=== PATIENT | female | born 1935 | race Caucasian/White ===

== ENCOUNTER → 2017-04-12 04:00 | Outpatient (REF) | payer MEDICARE, OTHER, SELFPAY ==
[2017-04-12 06:53] LABS: Hematocrit 33.4 % (37-47); Hemoglobin 10.5 g/dl (12.0-15.0); Mean Corp Hgb Conc 31.4 g/gl (32-36); Mean Corpuscular Hgb 31.2 pg (27.0-32.0); Mean Corpuscular Volume 99.1 fL (81-99); Mean Platelet Vol. 9.6 fl (6.2-12.0); Platelet Count 282 K/mm3 (150-450); RBC Distribution Width CV 15.9 % (11.6-14.6); RBC Distribution Width SD 57.1 fl (35.1-43.9); Red Blood Count 3.37 M/mm3 (4.2-5.4); White Blood Count 7.1 K/mm3 (4.4-11.0)
[2017-04-12 06:55] LABS: International Normalized Ratio 1.6; Prothrombin Time (Protime)PT. 18.3 SECONDS (11.7-14.9)
[2017-04-12 07:10] LABS: Scan Indicated on CBC? Y/N NO
[2017-04-12 07:13] LABS: AST(SGOT) 26 U/L (15-37); Alanine Aminotransfer ALT/SGPT 18 U/L (13-56); Albumin, Serum 2.9 g/dL (3.2-5.0); Alkaline Phosphatase 138 U/L (45-117); Anion Gap 8 (5-15); BUN 34 mg/dL (7-18); BUN/Creat Ratio 43.8 RATIO (10-20); Bilirubin, Direct 0.15 mg/dL (0.00-0.30); Chloride 105 mmol/L (98-107); Creatinine, Serum 0.78 mg/dL (0.55-1.02); EST Glomerular Filtration Rate 76 mL/min (>60); Est Glom Filt Rate - Afr Amer 91 mL/min (>60); Globulin 2.9 g/dL (2.2-4.2); Glucose 90 mg/dL (74-106); Potassium 4.5 mmol/L (3.5-5.1); Protein, Total 5.8 g/dL (6.4-8.2); Sodium Level 142 mmol/L (136-145)
[2017-04-12 07:51] LABS: Hemoglobin A1c 5.9 % (4.2-6.3)
== END ==
LOC: OLS.WHLBEN 04:00
PROVIDERS: Visit Provider Family Medicine
DX: I48.91 Unspecified atrial fibrillation (principal); Z79.01 Long term (current) use of anticoagulants; E03.9 Hypothyroidism, unspecified; R73.09 Other abnormal glucose
CPT/HCPCS: 36415; 80048; 80076; 83036; 84443; 85027; 85610

== ENCOUNTER → 2017-04-26 04:00 | Outpatient (REF) | payer MEDICARE, OTHER, SELFPAY ==
[2017-04-26 08:19] LABS: International Normalized Ratio 1.4; Prothrombin Time (Protime)PT. 16.7 SECONDS (11.7-14.9)
== END ==
LOC: OLS.WHLBEN 04:00
PROVIDERS: Visit Provider Family Medicine
DX: I48.91 Unspecified atrial fibrillation (principal); Z79.01 Long term (current) use of anticoagulants
CPT/HCPCS: 36415; 85610

== ENCOUNTER → 2017-05-03 05:00 | Outpatient (REF) | payer MEDICARE, OTHER, SELFPAY ==
[2017-05-03 08:11] LABS: International Normalized Ratio 1.6; Prothrombin Time (Protime)PT. 19.5 SECONDS (11.7-14.9)
== END ==
LOC: OLS.WHLBEN 05:00
PROVIDERS: Visit Provider Family Medicine
DX: I48.91 Unspecified atrial fibrillation (principal); Z79.01 Long term (current) use of anticoagulants
CPT/HCPCS: 36415; 85610

== ENCOUNTER → 2017-05-10 05:00 | Outpatient (REF) | payer MEDICARE, OTHER, SELFPAY ==
[2017-05-10 07:29] LABS: Hematocrit 34.7 % (37-47); Hemoglobin 11.1 g/dl (12.0-15.0); Mean Corpuscular Hgb 31.5 pg (27.0-32.0); Mean Corpuscular Volume 98.6 fL (81-99); Mean Platelet Vol. 10.3 fl (6.2-12.0); Platelet Count 219 K/mm3 (150-450); RBC Distribution Width CV 14.4 % (11.6-14.6); RBC Distribution Width SD 50.2 fl (35.1-43.9); Red Blood Count 3.52 M/mm3 (4.2-5.4); White Blood Count 4.4 K/mm3 (4.4-11.0)
[2017-05-10 07:30] LABS: Scan Indicated on CBC? Y/N NO
[2017-05-10 07:40] LABS: Anion Gap 8 (5-15); BUN 29 mg/dL (7-18); BUN/Creat Ratio 37.3 RATIO (10-20); Chloride 110 mmol/L (98-107); Creatinine, Serum 0.78 mg/dL (0.55-1.02); EST Glomerular Filtration Rate 75 mL/min (>60); Est Glom Filt Rate - Afr Amer 91 mL/min (>60); Glucose 90 mg/dL (74-106); Sodium Level 145 mmol/L (136-145)
[2017-05-10 08:02] LABS: International Normalized Ratio 2.3
== END ==
LOC: OLS.WHLBEN 05:00
PROVIDERS: Visit Provider Family Medicine
DX: I11.0 Hypertensive heart disease with heart failure (principal); I50.9 Heart failure, unspecified
CPT/HCPCS: 36415; 80048; 85027; 85610

== ENCOUNTER → 2017-06-07 05:00 | Outpatient (REF) | payer MEDICARE, OTHER, SELFPAY ==
[2017-06-07 06:11] LABS: Hematocrit 32.9 % (37-47); Hemoglobin 10.5 g/dl (12.0-15.0); Mean Corp Hgb Conc 31.9 g/gl (32-36); Mean Corpuscular Hgb 31.1 pg (27.0-32.0); Mean Corpuscular Volume 97.3 fL (81-99); Mean Platelet Vol. 10.1 fl (6.2-12.0); Platelet Count 169 K/mm3 (150-450); RBC Distribution Width CV 14.7 % (11.6-14.6); RBC Distribution Width SD 52.1 fl (35.1-43.9); Red Blood Count 3.38 M/mm3 (4.2-5.4); White Blood Count 3.5 K/mm3 (4.4-11.0)
[2017-06-07 06:13] LABS: Scan Indicated on CBC? Y/N NO
[2017-06-07 06:18] LABS: International Normalized Ratio 2.5
[2017-06-07 06:51] LABS: Anion Gap 5 (5-15); BUN 21 mg/dL (7-18); BUN/Creat Ratio 29.9 RATIO (10-20); Calcium,Total 7.7 mg/dL (8.5-10.1); Chloride 109 mmol/L (98-107); EST Glomerular Filtration Rate 85 mL/min (>60); Est Glom Filt Rate - Afr Amer 103 mL/min (>60); Glucose 84 mg/dL (74-106); Sodium Level 144 mmol/L (136-145); Thyroid Stim Hormone (TSH) 0.28 uIU/mL (0.358-3.74)
== END ==
LOC: OLS.WHLBEN 05:00
PROVIDERS: Visit Provider Family Medicine
DX: I50.9 Heart failure, unspecified (principal); I10 Essential (primary) hypertension; E03.9 Hypothyroidism, unspecified; Z79.899 Other long term (current) drug therapy
CPT/HCPCS: 36415; 80048; 84443; 85027; 85610

== ENCOUNTER → 2017-07-05 05:30 | Outpatient (REF) | payer MEDICARE, OTHER, SELFPAY ==
[2017-07-05 07:16] LABS: Hematocrit 35.2 % (37-47); Hemoglobin 11.5 g/dl (12.0-15.0); Mean Corp Hgb Conc 32.7 g/gl (32-36); Mean Corpuscular Hgb 31.5 pg (27.0-32.0); Mean Corpuscular Volume 96.4 fL (81-99); Mean Platelet Vol. 10.7 fl (6.2-12.0); Platelet Count 166 K/mm3 (150-450); RBC Distribution Width CV 15.1 % (11.6-14.6); RBC Distribution Width SD 50.5 fl (35.1-43.9); Red Blood Count 3.65 M/mm3 (4.2-5.4); White Blood Count 4.1 K/mm3 (4.4-11.0)
[2017-07-05 07:17] LABS: Scan Indicated on CBC? Y/N NO
[2017-07-05 07:23] LABS: International Normalized Ratio 2.2; Prothrombin Time (Protime)PT. 24.5 SECONDS (11.7-14.9)
[2017-07-05 07:33] LABS: Hemoglobin A1c 5.5 % (4.2-6.3)
[2017-07-05 07:34] LABS: Anion Gap 7 (5-15); BUN 28 mg/dL (7-18); BUN/Creat Ratio 30.1 RATIO (10-20); Chloride 106 mmol/L (98-107); Cholesterol 141 mg/dL (200); Creatinine, Serum 0.93 mg/dL (0.55-1.02); EST Glomerular Filtration Rate 61 mL/min (>60); Est Glom Filt Rate - Afr Amer 74 mL/min (>60); Glucose 88 mg/dL (74-106); High Density Lipoprotein 78 mg/dL; Potassium 4.2 mmol/L (3.5-5.1); Sodium Level 141 mmol/L (136-145); Thyroid Stim Hormone (TSH) 0.28 uIU/mL (0.358-3.74); Triglycerides 53 mg/dL; Very Low Density Lipoprotein 11 mg/dL (5-40)
== END ==
LOC: OLS.WHLBEN 05:30
PROVIDERS: Visit Provider Family Medicine
DX: I48.91 Unspecified atrial fibrillation (principal); E11.9 Type 2 diabetes mellitus without complications; I10 Essential (primary) hypertension; E03.9 Hypothyroidism, unspecified
CPT/HCPCS: 36415; 80048; 80061; 83036; 84443; 85027; 85610

== ENCOUNTER 2017-07-28 06:35 | Emergency (ER) | payer MEDICARE, OTHER, SELFPAY ==
--- NOTE | 2017-07-28 06:35 | DT_ITS ---
This patient was seen during an EMR downtime July 22, 2017 - July 29, 2017. This patient may have a combination of paper and electronic documentation or all paper documentation. All documentation is viewable within the e-chart portion of [email or web address] for each patient visit.
--- NOTE | 2017-07-28 07:05 | CT_ITS ---
STUDY: CT BRAIN WITHOUT CONTRAST REASON FOR EXAM: Female, 81 years old. Closed head injury after fall. RADIATION DOSAGE (If Supplied By Facility): CTDIvol = ( 44.99 ) mGy, DLP = ( 796.11 ) mGycm TECHNIQUE: Transaxial CT imaging of the brain was performed without administration of intravenous contrast material. Multiplanar reformations are submitted for interpretation. Individualized dose optimization techniques were used for this CT. COMPARISON: None. FINDINGS: There is a hematoma located lateral to left orbit consistent with recent trauma and soft tissue contusion. Normal calvarium. There is mild cerebral atrophy with widening of the extra-axial spaces and ventricular dilatation. There are areas of decreased attenuation within the white matter tracts of the supratentorial brain, consistent with microvascular disease changes. Normal basal ganglia and thalami. Normal brainstem. There is mild cerebellar atrophy. There is no intracranial hemorrhage. There is mild atherosclerotic calcification of intracranial arteries. There is mucoperiosteal thickening and possibly small amount of fluid in the right maxillary sinus. There is mild mucoperiosteal thickening within the ethmoid sinuses and left sphenoid sinus. CT/Brain/Head without Contrast IMPRESSION: 1. Chronic involutional changes of the brain. 2. Left-sided orbital soft tissue hematoma and contusion. 3. No CT evidence of acute intracranial hemorrhage. Electronically Signed: Magdalena Mcclellan MD at 7:46 EDT , Service support ,
[2017-07-30 11:54] LABS: International Normalized Ratio 2.6; Prothrombin Time (Protime)PT. 28.1 SECONDS (11.7-14.9)
== END 2017-07-28 11:11 | disposition home or self-care (01) ==
LOC: ED 19:47
PROVIDERS: Emergency Medicine; Emergency Provider Emergency Medicine; Family Provider Family Medicine; PCP Family Medicine
DX: S09.90XA Unspecified injury of head, initial encounter (principal); W18.00XA Striking against unspecified object with subsequent fall, initial encounter; Y93.89 Activity, other specified; Y92.091 Bathroom in other non-institutional residence as the place of occurrence of the external cause; Y99.9 Unspecified external cause status; I48.91 Unspecified atrial fibrillation; Z79.01 Long term (current) use of anticoagulants
CPT/HCPCS: 36415; 70450; 85610; 99283

== ENCOUNTER → 2017-08-02 05:00 | Outpatient (REF) | payer MEDICARE, OTHER, SELFPAY ==
[2017-08-02 08:17] LABS: International Normalized Ratio 2.7; Prothrombin Time (Protime)PT. 28.4 SECONDS (11.7-14.9)
[2017-08-02 08:21] LABS: Hematocrit 32.7 % (37-47); Hemoglobin 10.5 g/dl (12.0-15.0); Mean Corp Hgb Conc 32.1 g/gl (32-36); Mean Corpuscular Hgb 30.3 pg (27.0-32.0); Mean Corpuscular Volume 94.5 fL (81-99); Platelet Count 208 K/mm3 (150-450); RBC Distribution Width CV 15.4 % (11.6-14.6); RBC Distribution Width SD 52.3 fl (35.1-43.9); Red Blood Count 3.46 M/mm3 (4.2-5.4)
[2017-08-02 08:27] LABS: Scan Indicated on CBC? Y/N NO
[2017-08-02 08:29] LABS: Anion Gap 6 (5-15); BUN 22 mg/dL (7-18); BUN/Creat Ratio 30.5 RATIO (10-20); Calcium,Total 7.8 mg/dL (8.5-10.1); Chloride 109 mmol/L (98-107); Creatinine, Serum 0.72 mg/dL (0.55-1.02); EST Glomerular Filtration Rate 82 mL/min (>60); Est Glom Filt Rate - Afr Amer 99 mL/min (>60); Glucose 88 mg/dL (74-106); Potassium 3.9 mmol/L (3.5-5.1); Sodium Level 144 mmol/L (136-145)
== END ==
LOC: OLS.WHLBEN 05:00
PROVIDERS: Visit Provider Family Medicine
DX: I48.91 Unspecified atrial fibrillation (principal); I11.0 Hypertensive heart disease with heart failure; I50.9 Heart failure, unspecified
CPT/HCPCS: 36415; 80048; 85027; 85610

== ENCOUNTER → 2017-08-30 05:00 | Outpatient (REF) | payer MEDICARE, OTHER, SELFPAY ==
[2017-08-30 08:55] LABS: Hematocrit 34.4 % (37-47); Hemoglobin 11.2 g/dl (12.0-15.0); Mean Corp Hgb Conc 32.6 g/gl (32-36); Mean Corpuscular Hgb 32.1 pg (27.0-32.0); Mean Corpuscular Volume 98.6 fL (81-99); Mean Platelet Vol. 10.6 fl (6.2-12.0); Platelet Count 152 K/mm3 (150-450); RBC Distribution Width SD 55.5 fl (35.1-43.9); Red Blood Count 3.49 M/mm3 (4.2-5.4); White Blood Count 3.8 K/mm3 (4.4-11.0)
[2017-08-30 08:56] LABS: Scan Indicated on CBC? Y/N NO
[2017-08-30 08:57] LABS: International Normalized Ratio 2.6
[2017-08-30 09:04] LABS: Anion Gap 6 (5-15); BUN 26 mg/dL (7-18); Chloride 107 mmol/L (98-107); Creatinine, Serum 0.87 mg/dL (0.55-1.02); EST Glomerular Filtration Rate 67 mL/min (>60); Est Glom Filt Rate - Afr Amer 81 mL/min (>60); Glucose 97 mg/dL (74-106); Sodium Level 144 mmol/L (136-145)
== END ==
LOC: OLS.WHLBEN 05:00
PROVIDERS: Visit Provider Family Medicine
DX: I48.91 Unspecified atrial fibrillation (principal); I11.0 Hypertensive heart disease with heart failure; I50.9 Heart failure, unspecified
CPT/HCPCS: 36415; 80048; 85027; 85610

== ENCOUNTER → 2017-10-01 05:00 | Outpatient (REF) | payer MEDICARE, OTHER, SELFPAY ==
[2017-10-01 10:22] LABS: Hematocrit 37.6 % (37-47); Hemoglobin 12.2 g/dl (12.0-15.0); Mean Corp Hgb Conc 32.4 g/gl (32-36); Mean Corpuscular Hgb 32.3 pg (27.0-32.0); Mean Corpuscular Volume 99.5 fL (81-99); Mean Platelet Vol. 10.7 fl (6.2-12.0); Platelet Count 157 K/mm3 (150-450); RBC Distribution Width CV 14.9 % (11.6-14.6); RBC Distribution Width SD 52.8 fl (35.1-43.9); Red Blood Count 3.78 M/mm3 (4.2-5.4); White Blood Count 4.4 K/mm3 (4.4-11.0)
[2017-10-01 10:39] LABS: Scan Indicated on CBC? Y/N NO
[2017-10-01 11:07] LABS: Anion Gap 5 (5-15); BUN 24 mg/dL (7-18); BUN/Creat Ratio 27.6 RATIO (10-20); Calcium,Total 8.3 mg/dL (8.5-10.1); Chloride 107 mmol/L (98-107); Creatinine, Serum 0.87 mg/dL (0.55-1.02); EST Glomerular Filtration Rate 66 mL/min (>60); Est Glom Filt Rate - Afr Amer 80 mL/min (>60); Glucose 101 mg/dL (74-106); Potassium 3.9 mmol/L (3.5-5.1); Sodium Level 142 mmol/L (136-145)
== END ==
LOC: OLS.WHLBEN 05:00
PROVIDERS: Visit Provider Family Medicine
DX: I11.0 Hypertensive heart disease with heart failure (principal); I50.9 Heart failure, unspecified
CPT/HCPCS: 36415; 80048; 85027

== ENCOUNTER → 2017-10-29 04:00 | Outpatient (REF) | payer MEDICARE, OTHER, SELFPAY ==
[2017-10-29 08:48] LABS: Hemoglobin 13.5 g/dl (12.0-15.0); Mean Corp Hgb Conc 32.9 g/gl (32-36); Mean Corpuscular Hgb 32.5 pg (27.0-32.0); Mean Corpuscular Volume 98.8 fL (81-99); Mean Platelet Vol. 10.6 fl (6.2-12.0); Platelet Count 175 K/mm3 (150-450); RBC Distribution Width CV 14.4 % (11.6-14.6); RBC Distribution Width SD 51.2 fl (35.1-43.9); Red Blood Count 4.15 M/mm3 (4.2-5.4); White Blood Count 5.7 K/mm3 (4.4-11.0)
[2017-10-29 08:59] LABS: Scan Indicated on CBC? Y/N NO
[2017-10-29 09:09] LABS: Anion Gap 9 (5-15); BUN 25 mg/dL (7-18); BUN/Creat Ratio 29.2 RATIO (10-20); Calcium,Total 7.8 mg/dL (8.5-10.1); Chloride 106 mmol/L (98-107); Creatinine, Serum 0.86 mg/dL (0.55-1.02); EST Glomerular Filtration Rate 67 mL/min (>60); Est Glom Filt Rate - Afr Amer 81 mL/min (>60); Glucose 87 mg/dL (74-106); Sodium Level 145 mmol/L (136-145); Thyroid Stim Hormone (TSH) 0.14 uIU/mL (0.358-3.74)
== END ==
LOC: OLS.WHLBEN 04:00
PROVIDERS: Visit Provider Family Medicine
DX: I11.0 Hypertensive heart disease with heart failure (principal); I50.9 Heart failure, unspecified
CPT/HCPCS: 36415; 80048; 84443; 85027

== ENCOUNTER → 2017-11-19 05:00 | Outpatient (REF) | payer MEDICARE, OTHER, SELFPAY ==
[2017-11-19 09:27] LABS: Absolute Lymphocyte Count 0.74 X10^3/ul (0.83-4.51); Basophil# 0.02 X10^3/uL; Basophil% 0.5 % (0-1); Eosinophil# 0.07 X10^3/uL; Eosinophils% 1.6 % (0-5); Hemoglobin 12.8 g/dl (12.0-15.0); Lymphocyte # 0.74 X10^3/ul (4.0); Lymphocyte % 17.4 % (19-41); Mean Corp Hgb Conc 32.8 g/gl (32-36); Mean Corpuscular Hgb 32.7 pg (27.0-32.0); Mean Corpuscular Volume 99.5 fL (81-99); Mean Platelet Vol. 10.5 fl (6.2-12.0); Monocyte# 0.44 X10^3/uL; Monocyte% 10.4 % (0-10); Neutrophil # 2.97 X10^3/uL (2.7-7.7); Neutrophil % 69.9 % (47-70); POSITIVE COUNT NO; POSITIVE DIFFERENTIAL NO; POSITIVE MORPHOLOGY NO; Platelet Count 157 K/mm3 (150-450); RBC Distribution Width CV 14.3 % (11.6-14.6); RBC Distribution Width SD 51.1 fl (35.1-43.9); Red Blood Count 3.92 M/mm3 (4.2-5.4); White Blood Count 4.3 K/mm3 (4.4-11.0)
[2017-11-19 09:52] LABS: Anion Gap 6 (5-15); BUN 23 mg/dL (7-18); BUN/Creat Ratio 24.6 RATIO (10-20); Calcium,Total 7.9 mg/dL (8.5-10.1); Chloride 107 mmol/L (98-107); Creatinine, Serum 0.93 mg/dL (0.55-1.02); EST Glomerular Filtration Rate 61 mL/min (>60); Est Glom Filt Rate - Afr Amer 74 mL/min (>60); Glucose 134 mg/dL (74-106); Potassium 3.8 mmol/L (3.5-5.1); Sodium Level 144 mmol/L (136-145)
== END ==
LOC: OLS.WHLBEN 05:00
PROVIDERS: Visit Provider Family Medicine
DX: I11.0 Hypertensive heart disease with heart failure (principal); I50.9 Heart failure, unspecified; R53.83 Other fatigue
CPT/HCPCS: 36415; 80048; 85025

== ENCOUNTER → 2018-01-01 05:00 | Outpatient (REF) | payer MEDICARE, OTHER, SELFPAY ==
[2018-01-01 07:58] LABS: Hemoglobin 13.4 g/dl (12.0-15.0); Mean Corp Hgb Conc 32.7 g/gl (32-36); Mean Corpuscular Hgb 32.3 pg (27.0-32.0); Mean Corpuscular Volume 98.8 fL (81-99); Mean Platelet Vol. 11.2 fl (6.2-12.0); Platelet Count 149 K/mm3 (150-450); RBC Distribution Width SD 45.7 fl (35.1-43.9); Red Blood Count 4.15 M/mm3 (4.2-5.4); White Blood Count 5.9 K/mm3 (4.4-11.0)
[2018-01-01 08:00] LABS: Scan Indicated on CBC? Y/N NO
[2018-01-01 08:11] LABS: Anion Gap 10 (5-15); BUN 26 mg/dL (7-18); BUN/Creat Ratio 32.6 RATIO (10-20); Calcium,Total 8.1 mg/dL (8.5-10.1); Chloride 108 mmol/L (98-107); Cholesterol 140 mg/dL (200); EST Glomerular Filtration Rate 73 mL/min (>60); Est Glom Filt Rate - Afr Amer 88 mL/min (>60); Glucose 96 mg/dL (74-106); High Density Lipoprotein 70 mg/dL; Potassium 3.9 mmol/L (3.5-5.1); Sodium Level 143 mmol/L (136-145); Thyroid Stim Hormone (TSH) 0.07 uIU/mL (0.358-3.74); Triglycerides 76 mg/dL; Very Low Density Lipoprotein 15 mg/dL (5-40)
[2018-01-01 08:58] LABS: Hemoglobin A1c 5.4 % (4.2-6.3)
== END ==
LOC: OLS.WHLBEN 05:00
PROVIDERS: Visit Provider Family Medicine
DX: I10 Essential (primary) hypertension (principal)
CPT/HCPCS: 36415; 80048; 80061; 83036; 84443; 85027

== ENCOUNTER → 2018-01-29 05:00 | Outpatient (REF) | payer MEDICARE, OTHER, SELFPAY ==
[2017-12-18 09:36] VITALS: BMI 28.5
[2018-01-29 08:02] LABS: Hematocrit 39.9 % (37-47); Hemoglobin 12.8 g/dl (12.0-15.0); Mean Corp Hgb Conc 32.1 g/gl (32-36); Mean Corpuscular Hgb 31.4 pg (27.0-32.0); Mean Corpuscular Volume 97.8 fL (81-99); Mean Platelet Vol. 11.3 fl (6.2-12.0); Platelet Count 152 K/mm3 (150-450); RBC Distribution Width CV 12.7 % (11.6-14.6); Red Blood Count 4.08 M/mm3 (4.2-5.4); White Blood Count 5.2 K/mm3 (4.4-11.0)
[2018-01-29 08:05] LABS: Anion Gap 6 (5-15); BUN 29 mg/dL (7-18); BUN/Creat Ratio 32.3 RATIO (10-20); Chloride 107 mmol/L (98-107); EST Glomerular Filtration Rate 64 mL/min (>60); Est Glom Filt Rate - Afr Amer 77 mL/min (>60); Glucose 92 mg/dL (74-106); Potassium 4.1 mmol/L (3.5-5.1); Scan Indicated on CBC? Y/N NO; Sodium Level 141 mmol/L (136-145)
--- OUTSIDE RECORDS SUMMARY | 2018-03-17 01:25 | XMS RPT_ITS ---
:1935 Author Organization OHIP Support Name Relationship Address Phone Rossana Artis Unavailable [address] + [address] [place] [address] Krista Mccormick Unavailable [address] + [facility] [place] [address] R Unavailable Unavailable Unavailable Steff Rossana Unavailable [address] + [address] [place] [address] Lidya Mccormcikra Unavailable [address] + [place] [address] R Unavailable Unavailable Unavailable Steff Rossana Unavailable [address] + [address] [place] [address] Lidya Mccormickra Unavailable [address] + [place] [address] R Unavailable Unavailable Unavailable NICANOR MCCORMICK Unavailable Unavailable + Steff Rossana Unavailable [address] + [address] [place] [address] Lidya Mccormickra Unavailable [address] + [place] [address] R Unavailable Unavailable Unavailable Steff Rossana Unavailable [address] + [address] [place] [address] Lidya Mccormickra Unavailable [address] + [place] [address] R Unavailable Unavailable Unavailable Steff Rossana Unavailable [address] + [address] [place] [address] Lidya Mccormickra Unavailable [address] + [facility] [place] [address] R Unavailable Unavailable Unavailable Steff Rossana Unavailable [address] + [address] [place] [address] Jcae, Krista Unavailable [address] + [place] [address] R Unavailable Unavailable Unavailable SteffRossana Unavailable [facility] + [address] [place] [address] Jace, Krista Unavailable [address] + [place] [address] R Unavailable Unavailable Unavailable JACENICANOR BUTT Unavailable Unavailable + Steff, Rossana Unavailable [address] + [address] [place] [address] Jace, Krista Unavailable [address] + [place] [address] R Unavailable Unavailable Unavailable Steff, Rossana Unavailable [address] [place] [address] WAY + [address] [place] [address] Jace, Krista Unavailable [address] + [place] [address] R Unavailable Unavailable Unavailable Steff, Rossana Unavailable [address] [place] [address] WAY + [address] [place] [address] Jace, Krista Unavailable [address] + [place] [address] R Unavailable Unavailable Unavailable SteffRossana medina Unavailable [address] [place] [address] WAY + [address] [place] [address] Jace, Krista Unavailable [address] + [place] [address] R Unavailable Unavailable Unavailable RETIRED Unavailable u + [place], [place] RETIRED Unavailable Unavailable + Steff, Rossana Unavailable [address] [place] [address] WAY [phone] [place] [address] Isa Cabrera Unavailable [address] + [place] [address] RETIRED Unavailable Unavailable + Steff, Rossana Unavailable [facility] + [address] [place] [address] Jace, Krista Unavailable [address] + [place] [address] R Unavailable Unavailable Unavailable Rossana Artis Unavailable [address] [facility] + [address] [place] [address] Krista Mccormick Unavailable [address] + [place] [address] R Unavailable Unavailable Unavailable Rossana Artis Unavailable [address] [facility] + [address] [place] [address] Krista Mccormick Unavailable [address] + [place] [address] R Unavailable Unavailable Unavailable Isa Cabrera Unavailable [address] + [place] [address] R Unavailable Unavailable Unavailable RETIRED Unavailable u + [place], [place] Care Team Providers Name Role Phone Maurice Mcclellan Attending Unavailable Mcclellan, Maurice Attending Unavailable Mcclellan, Maurice Attending Unavailable Mcclellan, Maurice Attending Unavailable Mcclellan, Maurice Attending Unavailable Mcclellan, Maurice Attending Unavailable Emmie Cervantes Attending Unavailable Estephanie, Basil Attending Unavailable DOCTOR, OUT OF TOWN Referring Unavailable FLORENTIN NICHOLSON Primary Care Unavailable Mcclellan, Maurice Attending Unavailable Mcclellan, Maurice Attending Unavailable Ahmed, Jayashree Attending Unavailable Ahmed, Jayashree Referring Unavailable Mcclellan, Maurice Primary Care Unavailable Mcclellan, Maurice Attending Unavailable Mcclellan, Maurice Attending Unavailable Mcclellan, Maurice Attending Unavailable Mcclellan, Maurice Attending Unavailable Mcclellan, Maurice Attending Unavailable Emmie Cervantes Attending Unavailable Estephanie, Basil Attending Unavailable Mcclellan, Maurice Referring Unavailable Mcclellan, Maurice Attending Unavailable JEANETTE HDEZ Attending Unavailable Amanda Carbajal Primary Care Unavailable JEANETTE HDEZ Attending Unavailable Aamnda Carbajal Primary Care Unavailable PROBLEMS PROBLEMS DATE TYPE CONDITION / CODE ATTENDING STATUS SOURCE Unknown I50.9 - Heart failure, Maurice Mcclellan Active [place] [facility] unspecified / Community I50.9(ICD-10) Hospital Repository Unknown I10 - Essential (primary) Mauirce Mcclellan 8 hypertension / Community I10(ICD-10) Hospital Repository Final Dementia with Lewy bodies [facility]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 / G31.83(ICD-10) JEANETTE [facility] (discharge) Repository Final Dementia in oth diseases [facility]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 classd elswhr w/o behavrl [facility] (discharge) disturb / F02.80(ICD-10) Repository Final Pyogenic arthritis, [facility]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 unspecified / [facility] (discharge) M00.9(ICD-10) Repository Unknown Z79.01 - retirement Estephanie, Martell Active [place] [facility] (current) use of Community anticoagulants / Hospital Z79.01(ICD-10) Repository Unknown 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, 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 / Community I42.8(ICD-10) Hospital Repository Unknown I48.0 - Paroxysmal atrial Estephanie, Basil Active [place] [facility] fibrillation / Community I48.0(ICD-10) Hospital Repository Unknown I21.4 - Non-ST elevation Estephanie, Martell Active [place] [facility] (NSTEMI) myocardial Community infarction / Hospital I21.4(ICD-10) Repository Unknown I45.10 - Unspecified Estephanie, Basil Active [place] [facility] right bundle-branch block Community / I45.10(ICD-10) Hospital Repository Unknown I50.22 - Chronic systolic Estephanie, Basil Active [place] [facility] (congestive) heart Community failure / I50.22(ICD-10) Hospital Repository Unknown E78.5 - Hyperlipidemia, Estephanie, Basil Active [place] [facility] unspecified / Community E78.5(ICD-10) Hospital Repository Unknown R53.83 - Other fatigue / Maurice Mcclellan Active [place] [facility] R53.83(ICD-10) [facility] Repository Final Anxiety disorder, [facility]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 unspecified / [facility] (discharge) F41.9(ICD-10) Repository Unknown I48.91 - Unspecified Maurice Mcclellan Active [place] [facility] atrial fibrillation / Community I48.91(ICD-10) Hospital Repository Unknown S09.90XA - Unspecified Ahmed, Rami Active [place] [facility] injury of head, initial Community encounter / Hospital S09.90XA(ICD-10) Repository Unknown E03.9 - Hypothyroidism, Maurice Mcclellan Active [place] [facility] unspecified / Community E03.9(ICD-10) Hospital Repository Unknown E11.9 - Type 2 diabetes Maurice Mcclellan Active [place] [facility] mellitus without Community complications / Hospital E11.9(ICD-10) Repository Unknown E78.00 - Pure Estephanie, Basil Active [place] [facility] hypercholesterolemia, Community unspecified / Hospital E78.00(ICD-10) Repository Unknown E78.0 - Pure Estephanie, Martell Active [place] [facility] hypercholesterolemia / Community E78.0(ICD-10) Hospital Repository PROCEDURES PROCEDURES No Procedure Records FoundRESULTS RESULTS BASIC METABOLIC Collected: 03/03/2018 Status: F Source: [place] PROFILE (BMP) 5:50 AM [facility] REPOSITORY Order Comment: 215 TYPE CODE TESTS RESULT OUT OF RANGE REFERENCE UNITS LAB L501.0100 74-106 mg/dL Normal GLU 85 Result Comment: Please note revised GLUCOSE reference range effective 2017. LAB L501.1000 7-18 mg/dL High BUN 25 LAB L501.1100 0.55-1.02 mg/dL Normal CREAT,SERUM 0.83 Result Comment: The validity of the calculated GFR AND GFRAA in patients over 70 years has not been determined. Clinical correlation is essential. LAB L501.1110 >60 mL/min Normal EST GFR 70 Result Comment: Non- GFR Calc LAB L501.1115 >60 mL/min Normal EST GFR - AA 85 Result Comment: GFR Calc LAB L501.1300 10-20 RATIO High BUN/CRE 30.2 LAB L501.2200 8.5-10.1 mg/dL Low CA 7.7 LAB L501.5300 136-145 mmol/L NA Normal 143 LAB L501.5600 3.5-5.1 mmol/L K Normal 3.6 LAB L501.5900 98-107 mmol/L CL Normal 106 LAB L501.6100 21.0-32.0 mmol/L Normal CO2 28.0 LAB L501.6200 5-15 Normal GAP 9 Performed By: #### L500.2500, L501.9520 #### [facility] [address] [place], [address] THYROID STIM HORMONE Collected: 03/03/2018 Status: F Source: [place] (TSH) 5:50 AM [facility] REPOSITORY Order Comment: 215 TYPE CODE TESTS RESULT OUT OF RANGE REFERENCE UNITS LAB L501.9520 0.358-3.74 uIU/mL High TSH 9.81 Performed By: #### L500.2500, L501.9520 #### [facility] [address] [place], [place], [address] CBC-COMPLETE BLOOD CNT Collected: 03/03/2018 Status: F Source: [place] NO DIFF 5:50 AM [facility] REPOSITORY TYPE CODE TESTS RESULT OUT OF RANGE REFERENCE UNITS LAB L100.1000 4.4-11.0 K/mm3 Low WBC 4.0 LAB L100.1200 4.2-5.4 M/mm3 Low RBC 3.66 LAB L100.1300 12.0-15.0 g/dl Low HGB 11.5 LAB L100.1400 37-47 % Low HCT 35.8 LAB L100.1500 81-99 fL Normal MCV 97.8 LAB L100.1600 27.0-32.0 pg Normal MCH 31.4 LAB L100.1700 32-36 g/gl Normal MCHC 32.1 LAB L100.1810 11.6-14.6 % Normal RDW CV 12.9 LAB L100.1820 35.1-43.9 fl High RDW SD 44.8 LAB L100.1900 150-450 K/mm3 Normal PLT 164 LAB L100.2000 6.2-12.0 fl Normal MPV 11.0 Performed By: #### L100.0500 #### [facility] [address] [facility] [place], [place], [address] BASIC METABOLIC Collected: 01/29/2018 Status: F Source: [place] PROFILE (BMP) 6:20 AM [facility] REPOSIT[facility] Order Comment: 215 TYPE CODE TESTS RESULT OUT OF RANGE REFERENCE UNITS LAB L501.0100 74-106 mg/dL Normal GLU 92 Result Comment: Please note revised GLUCOSE reference range effective 2017. LAB L501.1000 7-18 mg/dL High BUN 29 LAB L501.1100 0.55-1.02 mg/dL Normal CREAT,SERUM 0.90 Result Comment: The validity of the calculated GFR AND GFRAA in patients over 70 years has not been determined. Clinical correlation is essential. LAB L501.1110 >60 mL/min Normal EST GFR 64 Result Comment: Non- GFR Calc LAB L501.1115 >60 mL/min Normal EST GFR - AA 77 Result Comment: GFR Calc LAB L501.1300 10-20 RATIO High BUN/CRE 32.3 LAB L501.2200 8.5-10.1 mg/dL Low CA 8.0 LAB L501.5300 136-145 mmol/L NA Normal 141 LAB L501.5600 3.5-5.1 mmol/L K Normal 4.1 Result Comment: Slight Hemolysis, Result may be falsely increased. LAB L501.5900 98-107 mmol/L Normal CL 107 LAB L501.6100 21.0-32.0 mmol/L Normal CO2 28.0 LAB L501.6200 5-15 Normal 6 GAP Performed By: #### L500.2500 #### [facility] [address] [place], [place], [address] CBC-COMPLETE BLOOD CNT Collected: 01/29/2018 Status: F Source: [place] NO DIFF 6:20 AM [facility] REPOS[facility] Order Comment: 215 TYPE CODE TESTS RESULT OUT OF RANGE REFERENCE UNITS LAB L100.1000 4.4-11.0 K/mm3 Normal WBC 5.2 LAB L100.1200 4.2-5.4 M/mm3 Low RBC 4.08 LAB L100.1300 12.0-15.0 g/dl Normal HGB 12.8 LAB L100.1400 37-47 % Normal HCT 39.9 LAB L100.1500 81-99 fL Normal MCV 97.8 LAB L100.1600 27.0-32.0 pg Normal MCH 31.4 LAB L100.1700 32-36 g/gl Normal MCHC 32.1 LAB L100.1810 11.6-14.6 % Normal RDW CV 12.7 LAB L100.1820 35.1-43.9 fl High RDW SD 45.0 LAB L100.1900 150-450 K/mm3 Normal PLT 152 LAB L100.2000 6.2-12.0 fl Normal MPV 11.3 Performed By: #### L100.0500 #### [facility] [address] [place], [place], [address] CBC-COMPLETE BLOOD CNT Collected: 01/01/2018 Status: F Source: [place] NO DIFF 6:35 AM [facility] REPOSITORY Order Comment: RM 215 TYPE CODE TESTS RESULT OUT OF RANGE REFERENCE UNITS LAB L100.1000 4.4-11.0 K/mm3 Normal WBC 5.9 LAB L100.1200 4.2-5.4 M/mm3 Low RBC 4.15 LAB L100.1300 12.0-15.0 g/dl Normal HGB 13.4 LAB L100.1400 37-47 % Normal HCT 41.0 LAB L100.1500 81-99 fL Normal MCV 98.8 LAB L100.1600 27.0-32.0 pg High MCH 32.3 LAB L100.1700 32-36 g/gl Normal MCHC 32.7 LAB L100.1810 11.6-14.6 % Normal RDW CV 13.0 LAB L100.1820 35.1-43.9 fl High RDW SD 45.7 LAB L100.1900 150-450 K/mm3 Low PLT 149 LAB L100.2000 6.2-12.0 fl Normal MPV 11.2 Performed By: #### L100.0500 #### [facility] [address] [place], [place], [address] BASIC METABOLIC Collected: 01/01/2018 Status: F Source: [place] PROFILE (BMP) 6:35 AM [facility] REPOSIT[facility] Order Comment: RM 215 TYPE CODE TESTS RESULT OUT OF RANGE REFERENCE UNITS LAB L501.0100 74-106 mg/dL Normal GLU 96 Result Comment: Please note revised GLUCOSE reference range effective 2017. LAB L501.1000 7-18 mg/dL High BUN 26 LAB L501.1100 0.55-1.02 mg/dL Normal CREAT,SERUM 0.80 Result Comment: The validity of the calculated GFR AND GFRAA in patients over 70 years has not been determined. Clinical correlation is essential. LAB L501.1110 >60 mL/min Normal EST GFR 73 Result Comment: Non- GFR Calc LAB L501.1115 >60 mL/min Normal EST GFR - AA 88 Result Comment: GFR Calc LAB L501.1300 10-20 RATIO High BUN/CRE 32.6 LAB L501.2200 8.5-10.1 mg/dL Low CA 8.1 LAB L501.5300 136-145 mmol/L NA Normal 143 LAB L501.5600 3.5-5.1 mmol/L K Normal 3.9 Result Comment: Slight Hemolysis, Result may be falsely increased. LAB L501.5900 98-107 mmol/L High CL 108 LAB L501.6100 21.0-32.0 mmol/L Normal CO2 25.0 LAB L501.6200 5-15 Normal GAP 10 Performed By: #### L500.2500, L500.4100, L501.9520 #### [facility] [address] [facility] [place], [place], [id number] LIPID PROFILE Collected: 01/01/2018 Status: F Source: [place] 6:35 AM [facility] REPOSITORY Order Comment: RM 215 TYPE CODE TESTS RESULT OUT OF RANGE REFERENCE UNITS LAB L501.4900 200 mg/dL Normal CHOL 140 Result Comment: <200 mg/dL Desirable 200-240 mg/dL Borderline >240 mg/dL High Risk LAB L501.5000 mg/dL Normal TRIG 76 Result Comment: The drugs N-Acetylcysteine and Metamizole may falsely depress this assay. Serum Triglycerides Reference Interval Normal <150 mg/dL Borderline high 150 - 199 mg/dL High 200 - 499 mg/dL Very High > or = 500 mg/dL LAB L501.6400 mg/dL Normal HDL 70 Result Comment: The drugs N-Acetylcysteine and Metamizole may falsely depress this assay. Reference Range HDL <40 mg/dL Low HDL Cholesterol HDL >or= 60 mg/dL High HDL Cholesterol LAB L501.6500 0-130 mg/dL Normal LDL 55 LAB L501.6600 5-40 mg/dL Normal VLDL 15 Performed By: #### L500.2500, L500.4100, L501.9520 #### [facility] [address] [place], [address] THYROID STIM HORMONE Collected: 01/01/2018 Status: F Source: [place] (TSH) 6:35 AM [facility] REPOS[facility] Order Comment: RM 215 TYPE CODE TESTS RESULT OUT OF RANGE REFERENCE UNITS LAB L501.9520 0.358-3.74 uIU/mL Low TSH 0.07 Performed By: #### L500.2500, L500.4100, L501.9520 #### [facility] [address] [place], [address] HEMOGLOBIN A1C Collected: 01/01/2018 Status: F Source: [place] 6:35 AM [facility]POS[facility] TYPE CODE TESTS RESULT OUT OF RANGE REFERENCE UNITS LAB L501.9985 4.2-6.3 % Normal HGB A1C 5.4 Performed By: #### L501.9985 #### [facility] [address] [place], [address] OFFICE VISIT Observed: 12/23/2017 Status: UNK Source: [place] 3:30 PM [facility] REPOS[facility]ORY History of Present Illness 81 yo white female her with her daughter for a follow up of her Dementia, she takes Donepezil and Memantine and tolerating well. She has moved to an assisted living facility, Daughter states her mom vick s not participate in any of the activities with the residents but she has always been a home body. She did go down to a Birthday constitution party for all the resident with December Birthdays which she states her birthday is Saturday. Mood- Fair Appetite- Good Sleeping- Well No driving No cooking Daughter takes care of fiances. There are no spiritual/cultural practices/values/needs that are important to know1 Initial Fall Risk Screenin KRYSTAL has not fallen in the last 6 months1 . Her fall did not result in injury1 . KRYSTAL does not have a fear of falling1 . She does not need assistance with sitting, standing or walking1 . Does not ne ed assistance walking in her home1 . She does not need assistance in an unfamiliar setting1 . The patient is not using an assistive device1 . Domestic Violence Screen: Does not feel threatened or abused physically, emotionally or sexually. Do you feel UNSAFE? The patient feels safe in the home. Depression/Suicide Screening: During the past 2 weeks, the patient felt down, depressed or hopeless. During the past 2 weeks, the patient felt little interest or pleasure in doing things. She has no thoughts of harming self. She has not had thoughts of harming others. 1 Amended By: Yamel Art; Dec 23 2017 3:24 PM ESTReview of Systems No bowel or bladder issues but does wear depends to prevent accidents, no recent infections but takes a ATB proctalgically, stable gait with walker, and no trouble swallowing. 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) Esophageal reflux (530.81) (K21.9) Fall (E888.9) (W19.XXXA) Fatigue (780.79) (R53.83) Gait instability (781.2) (R26.81) Glaucoma (365.9) (H40.9) Hallucinations, visual (368.16) (R44.1) Hypertension (401.9) (I10) Hypoparathyroidism (252.1) (E20.9) Hypothyroidism (244.9) (E03.9) Infection (136.9) (B99.9) Left flank pain (789.09) (R10.9) Lumbago (724.2) (M54.5) Mass of left side of neck (784.2) (R22.1) Microhematuria (599.72) (R31.29) Mitral valve prolapse (424.0) (I34.1) Nephrolithiasis (592.0) (N20.0) Osteopenia (733.90) (M85.80) Paroxysmal atrial fibrillation (427.31) (I48.0) Ptosis, 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) Rheumatoid arthritis (714.0) (M06.9) Spells 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,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) Thyroid neoplasm (239.7) (D49.7) Vitamin D deficiency (268.9) (E55.9) Past Medical History History of CAD (coronary artery disease) (414.00) (I25.10) History of MSSA (methicillin susceptible Staphylococcus aureus) infection (041.11) (A49.01) MSSA infection of prosthetic knee History of Papillary thyroid carcinoma (193) (C73) Surgical History History of Appendectomy History of Bladder Surgery History of Cataract Extraction History of Cholecystectomy History of Hand Surgery History of Hernia Repair History of Hysterectomy History of Knee Surgery History of Mitral Valve Replacement History of Neuroplasty Decompression Median Nerve At Carpal Tunnel History of Thyroid Surgery Total Thyroidectomy History of Treatment Of Ankle Fracture History of Wrist Surgery Social History Lives with adult children Never a smoker No alcohol use No drug use Retired Some college Allergies amoxicillin Recorded By: Nanette Campos; 03/14/2015 9:33:14 AM Codeine Derivatives Recorded By: Nanette Campos; 03/14/2015 9:33:32 AM Darvon Recorded By: Nanette Campos; 03/14/2015 9:35:52 AM Erythromycin Base TABS Recorded By: Nanette Campos; 03/14/2015 9:35:52 AM Morphine Derivatives Recorded By: Nanette Campos; 03/14/2015 9:35:52 AM OxyCONTIN TB12 Recorded By: Nanette Campos; 03/14/2015 9:35:52 AM Percocet TABS Recorded By: Nanette Campos; 03/14/2015 9:35:52 AM Remeron Recorded By: Nanette Campos; 03/14/2015 9:35:52 AM Sulfa Drugs Recorded By: Nanette Campos; 03/14/2015 9:35:52 AM Tetracyclines Recorded By: Stephanie Zimmer; 12/02/2015 11:11:44 PM Zoloft Recorded By: Nanette Campos; 03/14/2015 9:35:52 AM Denied Isosorbide Mononitrate TABS Updated By: Stephanie Zimmer; 06/11/2016 9:43:17 AM Lasix Updated By: Stephanie Zimmer; 06/11/2016 9:34:45 AM Current Meds Warfarin Sodium 6 MG Oral Tablet; Take one tablet daily; Therapy: 14Mar2015 to Recorded Rx By: Stephanie Zimmer; Dispense: 0 Days ; #: Sufficient Tablet; Refill: 0;For: Atrial fibrillation; DAYNA = N; Record TraMADol HCl - 50 MG Oral Tablet; 1/2-1 tab po bid prn; Therapy: 05Feb2017 to (Last Rx:[id number]) Ordered Rx By: Stephanie Zimmer; Dispense: 0 Days ; #:60 Tablet; Refill: 1;For: Back pain; DAYNA = N; Print Rx Vitamin B-12 100 MCG Oral Tablet; TAKE take every other day; Therapy: 28Nov2016 to (Evaluate:[id number]) Requested for: 30Dec2016 Recorded Rx By: Afsaneh Hogue; Dispense: 30 Days ; #:30 Tablet; Refill: 0;For: Decreased energy, Dementia; DAYNA = N; Record Donepezil HCl - 10 MG Oral Tablet; TAKE 1 TABLET Bedtime; Therapy: 11May2015 to (Evaluate:[id number]) Requested for: 79Zah6514; Last Rx:[id number] Ordered Rx By: Stephanie Zimmer; Dispense: 30 Days ; #:30 Tablet; Refill: 11;For: Dementia; DAYNA = N; Verified Transmission to [facility]; Last Updated By: [employer] [email or web address]; 10/18/2016 2:05:56 PM Memantine HCl - 10 MG Oral Tablet; take 1 tablet by mouth twice a day; Therapy: [id number] to (Last Rx:[id number]) Requested for: 33Fmt0582 Ordered Rx By: Stephanie Zimmer; Dispense: 0 Days ; #:60 Tablet; Refill: 11;For: Dementia with Lewy bodies; DAYNA = N; Verified Transmission to [facility]; Msg to Pharmacy: To be filled after completion of titration Rx; Last Updated By: [employer] Pandoo TEK; 10/18/2016 2:07:28 PM DULoxetine HCl - 20 MG Oral Capsule Delayed Release Particles; 1 po daily; Therapy: 92Skf0757 to (Last Rx:28Nov2016) Requested for: 28Nov2016 Ordered Rx By: Afsaneh Hogue; Dispense: 0 Days ; #:30 Capsule Delayed Release Particles; Refill: 11;For: Depression with anxiety; DAYNA = N; Verified Transmission to [facility] #[facility]; Last Updated By: Link_A_ Media; 11/28/2016 2:52:04 PM Levothyroxine Sodium 112 MCG Oral Tablet; TAKE 1 TABLET DAILY; Therapy: 14Mar2015 to (Evaluate:[id number]) Requested for: 45Qvt4985; Last Rx:[id number] Ordered Rx By: Stephanie Zimmer; Dispense: 90 Days ; #:90 Tablet; Refill: 3;For: Hypothyroidism; DAYNA = N; Verified Transmission to [facility] #[facility]; Last Updated By: Link[employer]_ [employer]; 10/19/2016 6:05:09 PM Methotrexate 2.5 MG Oral Tablet; TAKE 6 TABLETS WEEKLY; Therapy: 14Mar2015 to (Last Rx:[id number]) Requested for: [id number] Ordered Rx By: Stephanie Zimmer; Dispense: 0 Days ; #:24 Tablet; Refill: 5;For: Rheumatoid arthritis; DAYNA = N; Verified Transmission to [facility]; Last Updated By: Link[employer]_ Media; 12/23/2017 2:25:32 PM Doxycycline Hyclate 100 MG Oral Capsule; TAKE 1 CAPSULE EVERY 12 HOURS DAILY; Therapy: 03Dec2015 to (Evaluate:[id number]) Requested for: 34Byq0464; Last Rx:[id number] Ordered Rx By: Stephanie Zimmer; Dispense: 30 Days ; #:60 Capsule; Refill: 8;For: Staphylococcal arthritis of left knee; DAYNA = N; Verified Transmission to [facility]; Last Updated By: [employer]; 10/18/2016 2:07:29 PM Atorvastatin Calcium 20 MG Oral Tablet; Therapy: [id number] to Recorded Dispense: 30 Days ; #:30; Refill: 0; DAYNA = N; Record; Last Updated By: Jeanette Hdez; 09/30/2017 3:13:25 PM Frg-Gti-Ugat-D Oral Tablet; TAKE 1 TABLET DAILY; Therapy: 02Dec2015 to Recorded Rx By: Stephanie Zimmer; Dispense: 0 Days ; #: Sufficient Tablet; Refill: 0; DAYNA = N; Record Carvedilol 3.125 MG Oral Tablet; 1 PO QHS; Therapy: 11Jun2016 to Recorded Rx By: Stephanie Zimmer; Dispense: 0 Days ; #: Sufficient Tablet; Refill: 0; DAYNA = N; Record Doxycycline Monohydrate 100 MG Oral Capsule; Therapy: 10Apr2017 to Recorded Dispense: 30 Days ; #:60; Refill: 0; DAYNA = N; Record; Last Updated By: Jeanette Hdez; 09/30/2017 3:13:25 PM Folic Acid 1 MG Oral Tablet; TAKE 2 TABLETS DAILY; Therapy: 14Mar2015 to Recorded Dispense: 0 Days ; #: Sufficient Tablet; Refill: 0; DAYNA = N; Record; Last Updated By: Nanette Campos; 03/14/2015 9:41:08 AM Furosemide 40 MG Oral Tablet; TAKE 1 TABLET QD; Therapy: 11Jun2016 to Recorded Rx By: Afsaneh [place]; Dispense: 0 Days ; #:90 Tablet; Refill: 3; DAYNA = N; Record Losartan Potassium 25 MG Oral Tablet; TAKE 1 TABLET DAILY DIRECTED; Therapy: 11Jun2016 to (Evaluate:06Jun2017) Recorded Rx By: Stephanie Zimmer; Dispense: 90 Days ; #:90 Tablet; Refill: 3; DAYNA = N; Record Multi-Vitamin Oral Tablet; TAKE 1 TABLET DAILY; Therapy: 14Mar2015 to Recorded Dispense: 0 Days ; #: Sufficient Tablet; Refill: 0; DAYNA = N; Record; Last Updated By: Nanette Campos; 03/14/2015 9:49:26 AM Prescott-3 Fish Oil CAPS; Therapy: (Recorded:14Mar2015) to Recorded Dispense: 0 Days ; #: Sufficient; Refill: 0; DAYNA = N; Record; Last Updated By: Nanette Campos; 03/14/2015 9:49:26 AM Tylenol Extra Strength 500 MG Oral Tablet; TAKE 1 TABLET EVERY 4 TO 6 HOURS NEEDED; Therapy: 14Mar2015 to Recorded Dispense: 0 Days ; #: Sufficient Tablet; Refill: 0; DAYNA = N; Record; Last Updated By: Nanette Campos; 03/14/2015 9:49:26 AM Vitamin D3 400 UNIT Oral Capsule; 1 po daily; Therapy: 12Jun2016 to Recorded Rx By: Stephanie Zimmer; Dispense: 0 Days ; #: Sufficient Capsule; Refill: 0; DAYNA = N; Record Warfarin Sodium 4 MG Oral Tablet; Therapy: 26Apr2016 to Recorded Dispense: 30 Days ; #:30; Refill: 0; DAYNA = N; Record; Last Updated By: Stephanie Zimmer; 10/19/2016 12:39:52 AM Vitals Vital Signs Recorded: 23Dec2017 02:03PM Tdxytxywsud32.2 F Vtenxiknvnd78 Height5 ft 1 in Wqllml469 lb 3 oz BMI Plbdfrvbtk52.62 BSA Calculated1.65 Systolic Svmctck065 Diastolic Njasejf06 Systolic Llaxcqok217 Diastolic Xapbynwf27 Heart Rate Zmovras97 Heart Rate Piezvlly76 Pain Scale0 Physical Exam Neurological Exam: Alert, oriented x 3, speech clear, follows commands, able to recall current events CN: face symmetrical, soft palate elevates symmetrically, tongue midline Motor: strength 5/5 proximal and 4/5 distal bilaterally x 4 F-N-F: normal, Sensory: unremarkable to light touch Gait: stable with walker Memory recall: 2/3 w/o cues and 3/3 with cues (Horse, johnny, chair) President: XXXX Date September Place: office Diagnoses/Problems 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,F02.80) Infection of right knee (686.9) (M00.9) Orders Infection of right knee Start: Doxycycline Hyclate 100 MG Oral Tablet; TAKE 1 TABLET EVERY 12 HOURS DAILY Rx By: Jeanette Hdez; Dispense: 10 Days ; #:20 Tablet; Refill: 0;For: Infection of right knee; DAYNA = N; Sent To: [facility]; Last Updated By: [employer]; 12/23/2017 2:25:48 PM Rheumatoid arthritis Stop: Methotrexate 2.5 MG Oral Tablet Rx By: Stephanie Zimmer; Dispense: 0 Days ; #:24 Tablet; Refill: 5;For: Rheumatoid arthritis; DAYNA = N; Sent To: [facility]; Last Updated By: Jeanette Hdez; 12/23/2017 2:25:32 PM Provider Impressions 81 yo white female her with her daughter for a follow up of her Dementia, she takes Donepezil and Memantine and tolerating well. She has moved to an assisted living in February and has been adjusting wit h assist from her daughter. Plan - Continue medications as prescribed - Eat at least 1 serving of fish a week for a heart healthy diet. - Get out the room for activities for the holidays. - Ask title coordinator to start needle point, crocheting, and other craft type actives. - Follow up 6 months The total face to face appointment was 45 minutes and more than 50% of the visit was spent counseling and coordination of care. Patient Discussion/Summary Your neurological exam is stable. - Continue medications as prescribed - Eat at least 1 serving of fish a week for a heart healthy diet. - Get out the room for activities for the holidays. - Ask title coordinator to start needle point, crocheting, and other craft type actives. - Follow up 6 months. Signatures Electronically signed by : Jeanette Hdez R.N.; Dec 23 2017 3:30PM EST (Author) CARDIOLOGY VISIT Observed: 12/18/2017 Status: F Source: [facility] REPORT 11:22 AM [facility] REPOSITORY [facility] [address] [place] [address]. [address] [place] [address] OFFICE VISIT Date of Service: 12/18/17 MR#: [id number] Acct: [id number] Name: KRYSTAL BROWNE Rep #: [id number] : 1935 Provider: Basil Hummel MD Age/Sex: 81/F Location: [facility] [place] Status: Signed HPI [facility] Chief Complaint: Follow-up visit. Details: KRYSTAL BROWNE, is a 81 F who presents to the office today for a follow-up visit. She is a lady with a history of nonischemic cardiomyopathy with an estimated ejection fraction of 15% would been on a beta-nay ARIA inhibitor and diuretics. She is currently domiciled in the snf and she says that she has been doing well but has had occasional chest discomfort which he describes as dull it lasts a few minutes and goes away spontaneously. She has had no dizziness or diaphoresis she does get some shortness of breath with exertion. She did have the dosages of her medications reduced. Her Aldactone was stopped as well as the losartan and her Lasix was reduced to 20 mg a day. She has had no neck arm or jaw discomfort suggest angina. You do remember that she underwent a cardiac catheterization in April 2016 which demonstrated essentially normal coronary arteries with reduced ejection fraction. Her physical exam today here demonstrates reduced air entry at the bases regular rate and rhythm and no pedal edema. Intake Vital Signs12/18/17 Height 5 ft 12/18/17 Weight: 146 lb 12/18/17 Body Mass Index (BMI) 28.5 12/18/17 Blood Pressure 112/60 12/18/17 Respiratory Rate 18 12/18/17 Pulse Rate 48 L Intake Visit Reasons: 6 M FU (needs appts) Allergies erythromycin base Allergy (Verified 05/15/17 10:32) Itching mirtazapine [From Remeron] Allergy (Verified 05/15/17 10:32) Itching Opioids - Morphine Analogues Allergy (Verified 05/15/17 10:32) Itching oxycodone HCl [From OxyContin] Allergy (Verified 05/15/17 10:32) Itching sertraline HCl [From Zoloft] Adverse Reaction (Mild, Verified 05/15/17 10:32) GENERAL DISCOMFORT acetaminophen [From Percocet] Adverse Reaction (Verified 05/15/17 10:32) Itching amoxicillin [Amoxicillin] Adverse Reaction (Verified 05/15/17 10:32) Nausea/Vom/Diarrhea codeine Adverse Reaction (Verified 05/15/17 10:32) Nausea morphine Adverse Reaction (Verified 05/15/17 10:32) Nausea/Vom/Diarrhea oxycodone [From Percocet] Adverse Reaction (Verified 05/15/17 10:32) Itching propoxyphene HCl [From Darvon] Adverse Reaction (Verified 05/15/17 10:32) Nausea/Vom/Diarrhea Sulfa (Sulfonamide Antibiotics) Adverse Reaction (Verified 05/15/17 10:32) Itching Medications Acetaminophen [Tylenol] 500 mg PO Q6H PRN PRN 06/27/14 [History Confirmed 12/18/17] Folic Acid 2 mg PO DAILY@0800 06/27/14 [History Confirmed 05/14/17] Levothyroxine [Synthroid] 112 mcg PO QHS 06/27/14 [History Confirmed 12/18/17] Multivitamins,Therapeutic [Multivitamin] 1 tab PO DAILY 06/27/14 [History Confirmed 12/18/17] Donepezil HCl [Aricept] 10 mg PO QHS 05/03/16 [History Confirmed 05/14/17] Krill/Om-3/Dha/Epa/Phospho/Ast [Megared [place]-3 Krill Oil Sfgl] 1 cap PO DAILY 05/03/16 [History Confirmed 12/18/17] Memantine HCl [Namenda] 10 mg PO BID 05/03/16 [History Confirmed 12/18/17] Lactobacillus acidophilus capsule 2,000 mmu cells PO BID 05/14/17 [History Confirmed 12/18/17] atorvastatin 20 mg tablet 20 mg PO QHS tab 05/14/17 [History Confirmed 12/18/17] calcium carb-vit D3-minerals 600 mg calcium-400 unit tablet 1 tab PO QDAY 05/14/17 [History Confirmed 12/18/17] carvedilol 3.125 mg tablet 3.125 mg PO BID 05/14/17 [History Confirmed 12/18/17] cholecalciferol (vitamin D3) 400 unit capsule 800 unit PO QDAY cap 05/14/17 [History Confirmed 12/18/17] cyanocobalamin (vit B-12) 500 mcg tablet 500 mcg PO .QOD tab 05/14/17 [History Confirmed 12/18/17] doxycycline hyclate 100 mg capsule 100 mg PO BID cap 05/14/17 [History Confirmed 05/14/17] duloxetine 20 mg capsule,delayed release 20 mg PO QHS cap 05/14/17 [History Confirmed 12/18/17] warfarin 5 mg tablet 5 mg PO QDAY 05/14/17 [History Confirmed 12/18/17] ferrous sulfate 325 mg (65 mg iron) tablet 325 mg PO DAILY tab 12/18/17 [History Confirmed 12/18/17] furosemide 20 mg tablet 20 mg PO DAILY 12/18/17 [History Confirmed 12/18/17] [facility] Medical History Essential (primary) hypertension (Chronic) Non-ST elevation (NSTEMI) myocardial infarction (Chronic 04/2016) Right bundle branch block (Chronic) Chronic systolic (congestive) heart failure (Chronic) Hyperlipidemia (Chronic) Non-ischemic cardiomyopathy (Chronic) Paroxysmal atrial fibrillation (Chronic) Anxiety (Chronic) GERD (gastroesophageal reflux disease) (Chronic) Hypoparathyroidism (Chronic) Hypothyroidism (Chronic) Osteoarthritis (Chronic) Parkinson disease (Chronic) Rheumatoid arthritis (Chronic) Thyroid cancer (Chronic) Surgical History History of left heart catheterization (Resolved 05/07/16) History of total knee arthroplasty (Chronic) Hx of cholecystectomy (Chronic) H/O hand surgery (Resolved) H/O inguinal hernia repair (Resolved) H/O parathyroidectomy (Resolved) H/O thyroidectomy (Resolved) History of hysterectomy (Resolved) Family History Father Myocardial infarction Mother CVA (cerebral vascular accident) Sister Diabetes Social History Smoking Status: Former smoker ROS Const Const: Positive for weakness and frequent falls (last fall was 4 weeks ago); negative for fatigue, difficulty sleeping, excessive sweating or headache(s) Eyes Eyes: Negative for loss of peripheral vision, transient loss of vision, blurry vision, tunnel vision or double vision ENT ENT: Positive for balance problems; negative for headache(s), dizziness or Nosebleed/epistaxis Cardio Chest Pain: No Palpitations: No Edema: None Muscle aches with walking: None Resp Respiratory: Positive for SOB with activity, Cough and crackles; negative for SOB at rest, SOB orthopnea\SOB lying down, paroxysmal nocturnal dyspnea or chest congestion GI GI: Negative nausea, heartburn, black,tarry stools or vomiting : Negative for hematuria Musc Musc: Positive for balance problems; negative for muscle aches/ myalgia, muscle weakness or joint pain Skin Skin: Negative non-healing lesions, unusual bruising or rash Neuro Neuro: Positive for weakness, frequent falls (last fall was 4 weeks ago) and orthostatic symptoms; negative for headache(s), blurry vision, double vision, dizziness, lightheadedness, near syncope, syncope or lack of coordination Selvin Hematologic/Lymphatic: Negative for easy bruising or easy bleeding Endo Endo: Negative for fatigue, excessive sweating or increased thirst/drinking Psych Psych: Negative for anxiety or depression Allergy Allergy/Immunology: Negative for hives, Negative for rash Cardiology Exam Const Appearance: cooperative, healthy appearing, well developed, well groomed and no acute distress Nutritional Appearance: well nourished and average body habitus Orientation: alert, awake and oriented x3 Head Head: normal to inspection, normocephalic and atraumatic Ears: hearing grossly normal bilaterally and external ears normal Nose: external nose normal, nasal mucous membranes and turbinates normal, nares normal, septum normal, no nasal discharge Face and Sinus: face symmetric Mouth: oral mucosae normal, tongue normal, oropharynx normal and moist mucous membranes Teeth and gingiva: dentition normal Throat: posterior oropharynx normal, tonsils normal and uvula midline Eyes General: appearance normal, both eyes and all related structures Eyelids: eyelids normal Conjunctivae: conjunctivae normal Pupils: PERRL, normal by confrontation and accommodation normal EOM: EOM intact bilaterally Neck Neck: normal visual inspection, trachea midline and no JVD JVD: +5 Carotids: normal carotid upstroke and bounding pulses Chest Chest inspection: normal inspection of the chest, symmetric chest movement and normal respiratory effort Auscultation: Bilateral: Clear to Auscultation Cardio Palpation: normal PMI Rate: regular rate Rhythm: regular rhythm Heart sounds: S1 normal, S2 normal and normal, physiologic split S2; negative rub, gallop or murmur GI GI: normal to inspection, soft, no hepatosplenomegaly and bowel sounds present Neuro General: alert, awake, oriented x3, no focal sensory deficit, gait normal and moves all extremities Skin Skin: no rashes or lesions noted Extremities Pulses: Normal: Right Femoral Pulse, Left Femoral Pulse, Right Dorsalis Pedis Pulse, Left Dorsalis Pedis Pulse, Right Posterior Tibial Pulse, Left Posterior Tibial Pulse, Right Radial Pulse, Left Radial Pulse Lower Extremity Edema: None: Bilateral Musculoskel Musculoskeletal: No joint tenderness Psych Psychological: normal affect Assessment AND Plan 1. Non-ischemic cardiomyopathy I42.8 Plan She does have a history of known nonischemic cardiomyopathy. Her blood pressures have not tolerated higher doses of ARB all the diuretic and at this particular time she appears to be stable and we will not make any changes. Orders Orders: 2. Essential (primary) hypertension I10 Plan Her blood pressure appears to be under good control at this particular time. No changes will be made with respect to the above. Orders Orders: 3. Paroxysmal atrial fibrillation I48.0 Plan She has a history of paroxysmal atrial fibrillation. Her electrocardiogram done today demonstrates normal sinus rhythm with premature of atrial complexes. No evidence of atrial fibrillation is noted. She is not on any other rate limiting medications other than the beta-nay and she remains on anticoagulation with warfarin maintaining an INR of 2-3.0 Thank you for allowing me to participate in the care of your patient. Please don't hesitate to call if any issues arise Orders Orders: Plan Detail Other Orders Orders: Follow Up 6 Months (mmm) Coding Level of Care Code Off vis,est,level 3 Diagnoses Non-ischemic cardiomyopathy I42.8 Essential (primary) hypertension I10 Paroxysmal atrial fibrillation I48.0 Coding Level of Care Code Off vis,est,level 3 Diagnoses Non-ischemic cardiomyopathy I42.8 Essential (primary) hypertension I10 Paroxysmal atrial fibrillation I48.0 12/18/17 1122 <Electronically signed by Basil Hummel MD> Date Basil Hummel MD Cosigner Signature: Date (if applicable) CC: Maurice Mcclellan MD 12 LEAD EKG PERFORMED Observed: 12/18/2017 Status: F [place] [facility] [place] [facility] [place]:[address] [address] 12 Lead EKG performed by [facility] 12/18/17 1059 MR#: [id number] Acct: [id number] Name: KRYSTAL BROWNE Rep #: [id number] : 1935 81 From: Basil Hummel MD Attending Dr: Basil Hummel MD Status: DEP AMB Ordering Dr: Basil Hummel MD Date: 12/18/17 Location: [facility] Sex: F C [place] [facility] [facility] ECG Report Interpretation Sinus Rhythm -First degree A-V block -Frequent pvcs -ventricular trigeminy Sanchez = 238-Right bundle branch block with left axis -bifascicular block. Voltage criteria for LVH (R(I)+S(III) exceeds 2.00 mV). - Nonspecific T-abnormality. ABNORMAL Electronically signed on 01/22/2018 at 16:44 by Basil Hummelwood Software Version [id number] 01/22/18 1646 Date Basil Hummel MD CC: Maurice Mcclellan MD Date Dictated: 12/18/171058 Date Transcribed: 12/18/171058 [employer] Paralegal: [place] Signed CBC W/DIFF, AUTOMATED Collected: 11/19/2017 Status: F Source: [facility] 9:00 AM [facility] REPOSITORY Order Comment: 215 TYPE CODE TESTS RESULT OUT OF RANGE REFERENCE UNITS LAB L100.1000 4.4-11.0 K/mm3 Low WBC 4.3 LAB L100.1200 4.2-5.4 M/mm3 Low RBC 3.92 LAB L100.1300 12.0-15.0 g/dl Normal HGB 12.8 LAB L100.1400 37-47 % Normal HCT 39.0 LAB L100.1500 81-99 fL High MCV 99.5 LAB L100.1600 27.0-32.0 pg High MCH 32.7 LAB L100.1700 32-36 g/gl Normal MCHC 32.8 LAB L100.1810 11.6-14.6 % Normal RDW CV 14.3 LAB L100.1820 35.1-43.9 fl High RDW SD 51.1 LAB L100.1900 150-450 K/mm3 Normal PLT 157 LAB L100.2000 6.2-12.0 fl Normal MPV 10.5 LAB L100.2100 47-70 % Normal NEUT% 69.9 LAB L100.2200 19-41 % Low LY% 17.4 LAB L100.2300 0-10 % High MONO% 10.4 LAB L100.2400 0-5 % Normal EO% 1.6 LAB L100.2500 0-1 % Normal BASO% 0.5 LAB L100.2550 0.0-0.9 % Normal IM GRAN % 0.200 Result Comment: IG% - Immature Granulocytes (promyelocytes, myelocytes and metamyelocytes) > 1% indicates that a LEFT SHIFT is Present. LAB L100.2620 2.0-7.7 X10 3/uL Normal Absolute Neut 3.0 LAB L100.2720 0.83-4.51 X10 3/ul Low Absolute Lymph 0.74 Performed By: #### L100.0100 #### [facility] [address] [place], [address] BASIC METABOLIC Collected: 11/19/2017 Status: F Source: [facility] PROFILE ([facility]) 9:00 AM [facility] REPOSITORY Order Comment: 215 TYPE CODE TESTS RESULT OUT OF RANGE REFERENCE UNITS LAB L501.0100 74-106 mg/dL High GLU 134 Result Comment: Fasting Glucose result greater than or equal to 126 mg/dL suggests DIABETES MELLITUS per A.D.A. criteria. Please note revised GLUCOSE reference range effective 2017. LAB L501.1000 7-18 mg/dL High BUN 23 LAB L501.1100 0.55-1.02 mg/dL Normal CREAT,SERUM 0.93 Result Comment: The validity of the calculated GFR AND GFRAA in patients over 70 years has not been determined. Clinical correlation is essential. LAB L501.1110 >60 mL/min Normal EST GFR 61 Result Comment: Non- GFR Calc LAB L501.1115 >60 mL/min Normal EST GFR - AA 74 Result Comment: GFR Calc LAB L501.1300 10-20 RATIO High BUN/CRE 24.6 LAB L501.2200 8.5-10.1 mg/dL Low CA 7.9 LAB L501.5300 136-145 mmol/L NA Normal 144 LAB L501.5600 3.5-5.1 mmol/L K Normal 3.8 LAB L501.5900 98-107 mmol/L CL Normal 107 LAB L501.6100 21.0-32.0 mmol/L Normal CO2 31.0 LAB L501.6200 5-15 Normal GAP 6 Performed By: #### L500.2500 #### [facility] [address] [place], [address] CBC-COMPLETE BLOOD CNT Collected: 10/29/2017 Status: F Source: [facility] NO DIFF 7:45 AM [facility] REPOSITORY Order Comment: ROOM 213 TYPE CODE TESTS RESULT OUT OF RANGE REFERENCE UNITS LAB L100.1000 4.4-11.0 K/mm3 Normal WBC 5.7 LAB L100.1200 4.2-5.4 M/mm3 Low RBC 4.15 LAB L100.1300 12.0-15.0 g/dl Normal HGB 13.5 LAB L100.1400 37-47 % Normal HCT 41.0 LAB L100.1500 81-99 fL Normal MCV 98.8 LAB L100.1600 27.0-32.0 pg High MCH 32.5 LAB L100.1700 32-36 g/gl Normal MCHC 32.9 LAB L100.1810 11.6-14.6 % Normal RDW CV 14.4 LAB L100.1820 35.1-43.9 fl High RDW SD 51.2 LAB L100.1900 150-450 K/mm3 Normal PLT 175 LAB L100.2000 6.2-12.0 fl Normal MPV 10.6 Performed By: #### L100.0500 #### [facility] [address] [place], [address] BASIC METABOLIC Collected: 10/29/2017 Status: F Source: [facility] PROFILE ([facility]) 7:45 AM [facility] REPOSITORY Order Comment: ROOM 213 TYPE CODE TESTS RESULT OUT OF RANGE REFERENCE UNITS LAB L501.0100 74-106 mg/dL Normal GLU 87 Result Comment: Please note revised GLUCOSE reference range effective 2017. LAB L501.1000 7-18 mg/dL High BUN 25 LAB L501.1100 0.55-1.02 mg/dL Normal CREAT,SERUM 0.86 Result Comment: The validity of the calculated GFR AND GFRAA in patients over 70 years has not been determined. Clinical correlation is essential. LAB L501.1110 >60 mL/min Normal EST GFR 67 Result Comment: Non- GFR Calc LAB L501.1115 >60 mL/min Normal EST GFR - AA 81 Result Comment: GFR Calc LAB L501.1300 10-20 RATIO High BUN/CRE 29.2 LAB L501.2200 8.5-10.1 mg/dL Low CA 7.8 LAB L501.5300 136-145 mmol/L NA Normal 145 LAB L501.5600 3.5-5.1 mmol/L K Normal 4.0 LAB L501.5900 98-107 mmol/L CL Normal 106 LAB L501.6100 21.0-32.0 mmol/L Normal CO2 30.0 LAB L501.6200 5-15 Normal GAP 9 Performed By: #### L500.2500, L501.9520 #### [facility] [address] [place], [address] THYROID STIM HORMONE Collected: 10/29/2017 Status: F Source: [facility] ([facility]) 7:45 AM [facility] REPOSITORY Order Comment: ROOM 213 TYPE CODE TESTS RESULT OUT OF RANGE REFERENCE UNITS LAB L501.9520 0.358-3.74 uIU/mL Low TSH 0.14 Performed By: #### L500.2500, L501.9520 #### [facility] [address] [place], [address] OFFICE VISIT Observed: 10/02/2017 Status: UNK Source: [facility] 5:06 PM [facility] REPOSIT[facility] History of Present Illness 81 yo white female her with her daughter for a follow up of her Dementia, she takes Donepezil and Memantine and tolerating well. She has moved to an assisted living facility and daughter states she pick ed it herself and its in [place] which is far from were her daughter lives. Daughter states her mom does not participate in any of the activities with the residents but she has always been a home body. Mood- Fair Appetite- Good Sleeping- Well No driving No cooking Domestic Violence Screen: Does not feel threatened or abused physically, emotionally or sexually. Do you feel UNSAFE? The patient feels safe in the home. Depression/Suicide Screening: During the past 2 weeks, the patient has not felt down, depressed or hopeless. During the past 2 weeks, the patient has not felt little interest or pleasure in doing things. She has no thoughts of harming self. She has not had thoughts of harming others. Review of Systems No bowel or bladder issues but does wear depends to prevent accidents, no recent infections, stable gait with walker, and no trouble swallowing. 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) Esophageal reflux (530.81) (K21.9) Fall (E888.9) (W19.XXXA) Fatigue (780.79) (R53.83) Gait instability (781.2) (R26.81) Glaucoma (365.9) (H40.9) Hallucinations, visual (368.16) (R44.1) Hypertension (401.9) (I10) Hypoparathyroidism (252.1) (E20.9) Hypothyroidism (244.9) (E03.9) Infection (136.9) (B99.9) Left flank pain (789.09) (R10.9) Lumbago (724.2) (M54.5) Mass of left side of neck (784.2) (R22.1) Microhematuria (599.72) (R31.29) Mitral valve prolapse (424.0) (I34.1) Nephrolithiasis (592.0) (N20.0) Osteopenia (733.90) (M85.80) Paroxysmal atrial fibrillation (427.31) (I48.0) Ptosis, 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) Rheumatoid arthritis (714.0) (M06.9) Spells 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,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) Thyroid neoplasm (239.7) (D49.7) Vitamin D deficiency (268.9) (E55.9) Past Medical History History of CAD (coronary artery disease) (414.00) (I25.10) History of MSSA (methicillin susceptible Staphylococcus aureus) infection (041.11) (A49.01) MSSA infection of prosthetic knee History of Papillary thyroid carcinoma (193) (C73) Surgical History History of Appendectomy History of Bladder Surgery History of Cataract Extraction History of Cholecystectomy History of Hand Surgery History of Hernia Repair History of Hysterectomy History of Knee Surgery History of Mitral Valve Replacement History of Neuroplasty Decompression Median Nerve At Carpal Tunnel History of Thyroid Surgery Total Thyroidectomy History of Treatment Of Ankle Fracture History of Wrist Surgery Social History Lives with adult children Never a smoker No alcohol use No drug use Retired Some college Allergies amoxicillin Recorded By: Nanette Campos; 03/14/2015 9:33:14 AM Codeine Derivatives Recorded By: Nanette Campos; 03/14/2015 9:33:32 AM Darvon Recorded By: Nanette Campos; 03/14/2015 9:35:52 AM Erythromycin Base TABS Recorded By: Nanette Campos; 03/14/2015 9:35:52 AM Morphine Derivatives Recorded By: Nanette Campos; 03/14/2015 9:35:52 AM OxyCONTIN TB12 Recorded By: Nanette Campos; 03/14/2015 9:35:52 AM Percocet TABS Recorded By: Nanette Campos; 03/14/2015 9:35:52 AM Remeron Recorded By: Nanette Campos; 03/14/2015 9:35:52 AM Sulfa Drugs Recorded By: Nanette Campos; 03/14/2015 9:35:52 AM Tetracyclines Recorded By: Stephanie Zimmer; 12/02/2015 11:11:44 PM Zoloft Recorded By: Nanette Campos; 03/14/2015 9:35:52 AM Denied Isosorbide Mononitrate TABS Updated By: Stephanie Zimmer; 06/11/2016 9:43:17 AM Lasix Updated By: Stephanie Zimmer; 06/11/2016 9:34:45 AM Current Meds Warfarin Sodium 6 MG Oral Tablet; Take one tablet daily; Therapy: [id number] to Recorded Rx By: Stephanie Zimmer; Dispense: 0 Days ; #: Sufficient Tablet; Refill: 0;For: Atrial fibrillation; DAYNA = N; Record TraMADol HCl - 50 MG Oral Tablet; 1/2-1 tab po bid prn; Therapy: 05Feb2017 to (Last Rx:[id number]) Ordered Rx By: Stephanie Zimmer; Dispense: 0 Days ; #:60 Tablet; Refill: 1;For: Back pain; DAYNA = N; Print Rx Vitamin B-12 100 MCG Oral Tablet; TAKE take every other day; Therapy: 28Nov2016 to (Evaluate:48Ysq3369) Requested for: 30Dec2016 Recorded Rx By: Afsaneh Hogue; Dispense: 30 Days ; #:30 Tablet; Refill: 0;For: Decreased energy, Dementia; DAYNA = N; Record Donepezil HCl - 10 MG Oral Tablet; TAKE 1 TABLET Bedtime; Therapy: 11May2015 to (Evaluate:76Mfk2421) Requested for: 37Onf3262; Last Rx:[id number] Ordered Rx By: Stephanie Zimmer; Dispense: 30 Days ; #:30 Tablet; Refill: 11;For: Dementia; DAYNA = N; Verified Transmission to [facility] #[facility]; Last Updated By: Link_A_ Media; 10/18/2016 2:05:56 PM Memantine HCl - 10 MG Oral Tablet; take 1 tablet by mouth twice a day; Therapy: 93Mhb3736 to (Last Rx:[id number]) Requested for: 32Igf2268 Ordered Rx By: Stephanie Zimmer; Dispense: 0 Days ; #:60 Tablet; Refill: 11;For: Dementia with Lewy bodies; DAYNA = N; Verified Transmission to [facility] #[facility]; Msg to Pharmacy: To be filled after completion of titration Rx; Last Updated By: Link_A_ Media; 10/18/2016 2:07:28 PM DULoxetine HCl - 20 MG Oral Capsule Delayed Release Particles; 1 po daily; Therapy: 11Jun2016 to (Last Rx:28Nov2016) Requested for: 28Nov2016 Ordered Rx By: Afsaneh Hogue; Dispense: 0 Days ; #:30 Capsule Delayed Release Particles; Refill: 11;For: Depression with anxiety; DAYNA = N; Verified Transmission to [facility] #[facility]; Last Updated By: Juan bandaNeon Mobile; 11/28/2016 2:52:04 PM Levothyroxine Sodium 112 MCG Oral Tablet; TAKE 1 TABLET DAILY; Therapy: 14Mar2015 to (Evaluate:70Oef9352) Requested for: 27Kyr3557; Last Rx:[id number] Ordered Rx By: Stephanie Zimmer; Dispense: 90 Days ; #:90 Tablet; Refill: 3;For: Hypothyroidism; DAYNA = N; Verified Transmission to [facility] #[facility]; Last Updated By: Link_A_ Media; 10/19/2016 6:05:09 PM Methotrexate 2.5 MG Oral Tablet; TAKE 6 TABLETS WEEKLY; Therapy: 14Mar2015 to (Last Rx:[id number]) Requested for: [id number] Ordered Rx By: Stephanie Zimmer; Dispense: 0 Days ; #:24 Tablet; Refill: 5;For: Rheumatoid arthritis; DAYNA = N; Verified Transmission to [facility] #[facility]; Last Updated By: Link_A_ Media; 10/18/2016 2:05:57 PM Doxycycline Hyclate 100 MG Oral Capsule; TAKE 1 CAPSULE EVERY 12 HOURS DAILY; Therapy: 03Dec2015 to (Evaluate:10Xtn8641) Requested for: 12Air8460; Last Rx:[id number] Ordered Rx By: Stephanie Zimmer; Dispense: 30 Days ; #:60 Capsule; Refill: 8;For: Staphylococcal arthritis of left knee; DAYNA = N; Verified Transmission to [facility] #[facility]; Last Updated By: Link_A_ Media; 10/18/2016 2:07:29 PM Jhe-Hii-Szxj-D Oral Tablet; TAKE 1 TABLET DAILY; Therapy: 02Dec2015 to Recorded Rx By: Stephanie Zimmer; Dispense: 0 Days ; #: Sufficient Tablet; Refill: 0; DAYNA = N; Record Carvedilol 3.125 MG Oral Tablet; 1 PO QHS; Therapy: 11Jun2016 to Recorded Rx By: Stephanie Zimmer; Dispense: 0 Days ; #: Sufficient Tablet; Refill: 0; DAYNA = N; Record Folic Acid 1 MG Oral Tablet; TAKE 2 TABLETS DAILY; Therapy: 14Mar2015 to Recorded Dispense: 0 Days ; #: Sufficient Tablet; Refill: 0; DAYNA = N; Record; Last Updated By: Nanette Campos; 03/14/2015 9:41:08 AM Furosemide 40 MG Oral Tablet; TAKE 1 TABLET QD; Therapy: 11Jun2016 to Recorded Rx By: Afsaneh Hogue; Dispense: 0 Days ; #:90 Tablet; Refill: 3; DAYNA = N; Record Losartan Potassium 25 MG Oral Tablet; TAKE 1 TABLET DAILY DIRECTED; Therapy: 11Jun2016 to (Evaluate:06Jun2017) Recorded Rx By: Stephanie Zimmer; Dispense: 90 Days ; #:90 Tablet; Refill: 3; DAYNA = N; Record Multi-Vitamin Oral Tablet; TAKE 1 TABLET DAILY; Therapy: 14Mar2015 to Recorded Dispense: 0 Days ; #: Sufficient Tablet; Refill: 0; DAYNA = N; Record; Last Updated By: Nanette Campos; 03/14/2015 9:49:26 AM Prescott-3 Fish Oil CAPS; Therapy: (Recorded:14Mar2015) to Recorded Dispense: 0 Days ; #: Sufficient CAPS; Refill: 0; DAYNA = N; Record; Last Updated By: Nanette Campos; 03/14/2015 9:49:26 AM Tylenol Extra Strength 500 MG Oral Tablet; TAKE 1 TABLET EVERY 4 TO 6 HOURS NEEDED; Therapy: 14Mar2015 to Recorded Dispense: 0 Days ; #: Sufficient Tablet; Refill: 0; DAYNA = N; Record; Last Updated By: Nanette Campos; 03/14/2015 9:49:26 AM Vitamin D3 400 UNIT Oral Capsule; 1 po daily; Therapy: 12Jun2016 to Recorded Rx By: Stephanie Zimmer; Dispense: 0 Days ; #: Sufficient Capsule; Refill: 0; DAYNA = N; Record Warfarin Sodium 4 MG Oral Tablet; Therapy: 26Apr2016 to Recorded Dispense: 30 Days ; #:30 TABS; Refill: 0; DAYNA = N; Record; Last Updated By: Stephanie Zimmer; 10/19/2016 12:39:52 AM Physical Exam Neurological Exam: Alert, oriented x 3, speech clear, follows commands, able to recall current events CN: face symmetrical, soft palate elevates symmetrically, tongue midline Motor: strength 5/5 proximal and 4/5 distal bilaterally x 4 F-N-F: normal, Sensory: unremarkable to light touch Gait: stable with walker Memory recall: 2/3 w/o cues and 3/3 with cues (Horse, johnny, chair) President: Javier Fam Date September Place: Dr. 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 She has moved to an assisted living facility in 2017. Plan - Continue medications as prescribed - Eat at least 1 serving of fish a week for a heart healthy diet. - Get out the room for activities at least 3 times week - Follow up 3 months The total face to face appointment was 45 minutes and more than 50% of the visit was spent counseling and coordination of care. Patient Discussion/Summary Your neurological exam is stable. - Continue medications as prescribed - Eat at least 1 serving of fish a week for a heart healthy diet. - Get out the room for activities at least 3 times week - Follow up 3 months. End of Encounter Meds Ufs-Dng-Siqc-D Oral Tablet; TAKE 1 TABLET DAILY; Therapy: 02Dec2015 to Recorded Carvedilol 3.125 MG Oral Tablet; 1 PO QHS; Therapy: 11Jun2016 to Recorded Donepezil HCl - 10 MG Oral Tablet; TAKE 1 TABLET Bedtime; Therapy: 11May2015 to (Evaluate:84Ymz3935) Requested for: 82Abz3169; Last Rx:[id number] Ordered Doxycycline Hyclate 100 MG Oral Capsule; TAKE 1 CAPSULE EVERY 12 HOURS DAILY; Therapy: 03Dec2015 to (Evaluate:60Pus2091) Requested for: 51Tnx6993; Last Rx:[id number] Ordered DULoxetine HCl - 20 MG Oral Capsule Delayed Release Particles; 1 po daily; Therapy: 11Jun2016 to (Last Rx:28Nov2016) Requested for: 28Nov2016 Ordered Folic Acid 1 MG Oral Tablet; TAKE 2 TABLETS DAILY; Therapy: 14Mar2015 to Recorded Furosemide 40 MG Oral Tablet; TAKE 1 TABLET QD; Therapy: 11Jun2016 to Recorded Levothyroxine Sodium 112 MCG Oral Tablet; TAKE 1 TABLET DAILY; Therapy: 14Mar2015 to (Evaluate:46Alf7870) Requested for: 19Oct2016; Last Rx:[id number] Ordered Losartan Potassium 25 MG Oral Tablet; TAKE 1 TABLET DAILY DIRECTED; Therapy: 11Jun2016 to (Evaluate:06Jun2017) Recorded Memantine HCl - 10 MG Oral Tablet; take 1 tablet by mouth twice a day; Therapy: 25Oct2015 to (Last Rx:[id number]) Requested for: 14Hpd6179 Ordered Methotrexate 2.5 MG Oral Tablet; TAKE 6 TABLETS WEEKLY; Therapy: 14Mar2015 to (Last Rx:[id number]) Requested for: 18Oct2016 Ordered Multi-Vitamin Oral Tablet; TAKE 1 TABLET DAILY; Therapy: 14Mar2015 to Recorded Prescott-3 Fish Oil CAPS; Therapy: (Recorded:14Mar2015) to Recorded TraMADol HCl - 50 MG Oral Tablet; 1/2-1 tab po bid prn; Therapy: 78Scr3652 to (Last Rx:[id number]) Ordered Tylenol Extra Strength 500 MG Oral Tablet; TAKE 1 TABLET EVERY 4 TO 6 HOURS NEEDED; Therapy: 14Mar2015 to Recorded Vitamin B-12 100 MCG Oral Tablet; TAKE take every other day; Therapy: 28Nov2016 to (Evaluate:94Wsi0612) Requested for: 30Dec2016 Recorded Vitamin D3 400 UNIT Oral Capsule; 1 po daily; Therapy: 12Jun2016 to Recorded Warfarin Sodium 4 MG Oral Tablet; Therapy: 26Apr2016 to Recorded Warfarin Sodium 6 MG Oral Tablet; Take one tablet daily; Therapy: 14Mar2015 to Recorded Signatures Electronically signed by : Jeanette Hdez R.N.; Oct 02 2017 5:06PM EST (Author) CBC-COMPLETE BLOOD CNT Collected: 10/01/2017 Status: F Source: ISAIAH NO DIFF 8:50 AM [facility] REPOSITORY Order Comment: 215 TYPE CODE TESTS RESULT OUT OF RANGE REFERENCE UNITS LAB L100.1000 4.4-11.0 K/mm3 Normal WBC 4.4 LAB L100.1200 4.2-5.4 M/mm3 Low RBC 3.78 LAB L100.1300 12.0-15.0 g/dl Normal HGB 12.2 LAB L100.1400 37-47 % Normal HCT 37.6 LAB L100.1500 81-99 fL High MCV 99.5 LAB L100.1600 27.0-32.0 pg High MCH 32.3 LAB L100.1700 32-36 g/gl Normal MCHC 32.4 LAB L100.1810 11.6-14.6 % High RDW CV 14.9 LAB L100.1820 35.1-43.9 fl High RDW SD 52.8 LAB L100.1900 150-450 K/mm3 Normal PLT 157 LAB L100.2000 6.2-12.0 fl Normal MPV 10.7 Performed By: #### L100.0500 #### [facility] [address] [place], [place], [address] BASIC METABOLIC Collected: 10/01/2017 Status: F Source: SHENANDOAH PROFILE (BMP) 8:50 AM [facility] REPOSITORY Order Comment: 215 TYPE CODE TESTS RESULT OUT OF RANGE REFERENCE UNITS LAB L501.0100 74-106 mg/dL Normal GLU 101 Result Comment: Fasting Glucose result from 100 to 125 mg/dL suggests IMPAIRED HOMEOSTASIS per A.D.A. criteria. Please note revised GLUCOSE reference range effective 2017. LAB L501.1000 7-18 mg/dL High BUN 24 LAB L501.1100 0.55-1.02 mg/dL Normal CREAT,SERUM 0.87 Result Comment: The validity of the calculated GFR AND GFRAA in patients over 70 years has not been determined. Clinical correlation is essential. LAB L501.1110 >60 mL/min Normal EST GFR 66 Result Comment: Non- GFR Calc LAB L501.1115 >60 mL/min Normal EST GFR - AA 80 Result Comment: GFR Calc LAB L501.1300 10-20 RATIO High BUN/CRE 27.6 LAB L501.2200 8.5-10.1 mg/dL Low CA 8.3 LAB L501.5300 136-145 mmol/L NA Normal 142 LAB L501.5600 3.5-5.1 mmol/L K Normal 3.9 LAB L501.5900 98-107 mmol/L CL Normal 107 LAB L501.6100 21.0-32.0 mmol/L Normal CO2 30.0 LAB L501.6200 5-15 Normal GAP 5 Performed By: #### L500.2500 #### [facility] [address] [place], [place], [id number] CBC-COMPLETE BLOOD CNT Collected: 08/30/2017 Status: F Source: ISAIAH NO DIFF 6:45 AM [facility] REPOSITORY Order Comment: 215 TYPE CODE TESTS RESULT OUT OF RANGE REFERENCE UNITS LAB L100.1000 4.4-11.0 K/mm3 Low WBC 3.8 LAB L100.1200 4.2-5.4 M/mm3 Low RBC 3.49 LAB L100.1300 12.0-15.0 g/dl Low HGB 11.2 LAB L100.1400 37-47 % Low HCT 34.4 LAB L100.1500 81-99 fL Normal MCV 98.6 LAB L100.1600 27.0-32.0 pg High MCH 32.1 LAB L100.1700 32-36 g/gl Normal MCHC 32.6 LAB L100.1810 11.6-14.6 % High RDW CV 16.0 LAB L100.1820 35.1-43.9 fl High RDW SD 55.5 LAB L100.1900 150-450 K/mm3 Normal PLT 152 LAB L100.2000 6.2-12.0 fl Normal MPV 10.6 Performed By: #### L100.0500 #### [facility] [address] [place], [place], [id number] PROTHROMBIN TIME W/INR Collected: 08/30/2017 Status: F Source: ISAIHA 6:45 AM [facility] REPOSITORY Order Comment: 215 TYPE CODE TESTS RESULT OUT OF RANGE REFERENCE UNITS LAB L300.4150 11.7-14.9 SECONDS High PROTIME 28.0 LAB L300.4200 Normal INR 2.6 Performed By: #### L300.3900 #### [facility] [address] [place], [place], [id number] BASIC METABOLIC Collected: 08/30/2017 Status: F Source: ISAIAH PROFILE (BMP) 6:45 AM [facility] REPOSITORY Order Comment: 215 TYPE CODE TESTS RESULT OUT OF RANGE REFERENCE UNITS LAB L501.0100 74-106 mg/dL Normal GLU 97 Result Comment: Please note revised GLUCOSE reference range effective 2017. LAB L501.1000 7-18 mg/dL High BUN 26 LAB L501.1100 0.55-1.02 mg/dL Normal CREAT,SERUM 0.87 Result Comment: The validity of the calculated GFR AND GFRAA in patients over 70 years has not been determined. Clinical correlation is essential. LAB L501.1110 >60 mL/min Normal EST GFR 67 Result Comment: Non- GFR Calc LAB L501.1115 >60 mL/min Normal EST GFR - AA 81 Result Comment: GFR Calc LAB L501.1300 10-20 RATIO High BUN/CRE 30.0 LAB L501.2200 8.5-10.1 mg/dL Low CA 8.0 LAB L501.5300 136-145 mmol/L NA Normal 144 LAB L501.5600 3.5-5.1 mmol/L K Normal 4.0 LAB L501.5900 98-107 mmol/L CL Normal 107 LAB L501.6100 21.0-32.0 mmol/L Normal CO2 31.0 LAB L501.6200 5-15 Normal GAP 6 Performed By: #### L500.2500 #### [facility] [address] [place], [address] DOWNTIME REPORT Observed: 08/07/2017 Status: F Source: ISAIAH 2:02 PM [facility] REPOSITORY [facility] Medical Records Department [address] [place] [address] Downtime Report MR#: [id number] Acct: [id number] Name: KRYSTAL BROWNE Rep #: [id number] : 1935 81 From: David Mcclellan MD PCP: Maurice Mcclellan MD Status: DEP ER This patient was seen during an EMR downtime July 22, 2017 - July 29, 2017. This patient may have a combination of paper and electronic documentation or all paper documentation. All documentation is viewable within the e-chart portion of [employer] for each patient visit. CBC-COMPLETE BLOOD CNT Collected: 08/02/2017 Status: F Source: ISAIAH NO DIFF 6:40 AM [facility] REPOSITORY Order Comment: 215 TYPE CODE TESTS RESULT OUT OF RANGE REFERENCE UNITS LAB L100.1000 4.4-11.0 K/mm3 Normal WBC 5.0 LAB L100.1200 4.2-5.4 M/mm3 Low RBC 3.46 LAB L100.1300 12.0-15.0 g/dl Low HGB 10.5 LAB L100.1400 37-47 % Low HCT 32.7 LAB L100.1500 81-99 fL Normal MCV 94.5 LAB L100.1600 27.0-32.0 pg Normal MCH 30.3 LAB L100.1700 32-36 g/gl Normal MCHC 32.1 LAB L100.1810 11.6-14.6 % High RDW CV 15.4 LAB L100.1820 35.1-43.9 fl High RDW SD 52.3 LAB L100.1900 150-450 K/mm3 Normal PLT 208 LAB L100.2000 6.2-12.0 fl Normal MPV 10.0 Performed By: #### L100.0500 #### [facility] [address] [place], [address] BASIC METABOLIC Collected: 08/02/2017 Status: F Source: SHENANDOAH PROFILE (BMP) 6:40 AM [facility] REPOSITORY Order Comment: 215 TYPE CODE TESTS RESULT OUT OF RANGE REFERENCE UNITS LAB L501.0100 74-106 mg/dL Normal GLU 88 Result Comment: Please note revised GLUCOSE reference range effective 2017. LAB L501.1000 7-18 mg/dL High BUN 22 LAB L501.1100 0.55-1.02 mg/dL Normal CREAT,SERUM 0.72 Result Comment: The validity of the calculated GFR AND GFRAA in patients over 70 years has not been determined. Clinical correlation is essential. LAB L501.1110 >60 mL/min Normal EST GFR 82 Result Comment: Non- GFR Calc LAB L501.1115 >60 mL/min Normal EST GFR - AA 99 Result Comment: GFR Calc LAB L501.1300 10-20 RATIO High BUN/CRE 30.5 LAB L501.2200 8.5-10.1 mg/dL Low CA 7.8 LAB L501.5300 136-145 mmol/L NA Normal 144 LAB L501.5600 3.5-5.1 mmol/L K Normal 3.9 LAB L501.5900 98-107 mmol/L High CL 109 LAB L501.6100 21.0-32.0 mmol/L Normal CO2 29.0 LAB L501.6200 5-15 Normal GAP 6 Performed By: #### L500.2500 #### [facility] [address] [place], [address] PROTHROMBIN TIME W/INR Collected: 08/02/2017 Status: F Source: ISAIAH 6:40 AM [facility] REPOSITORY Order Comment: 215 TYPE CODE TESTS RESULT OUT OF RANGE REFERENCE UNITS LAB L300.4150 11.7-14.9 SECONDS High PROTIME 28.4 LAB L300.4200 Normal INR 2.7 Performed By: #### L300.3900 #### [facility] [address] [place], [address] BRAIN/HEAD WITHOUT Observed: 07/29/2017 Status: F Source: SHENANDOAH CONTRAST 2:41 AM [facility] REPOSITORY [facility] Imaging Services [address] [place] [address] Brain/Head without Contrast MR#: [id number] Acct: [id number] Name: KRYSTAL BROWNE Rep #: [id number] : 1935 F 81 From: Magdalena Mcclellan MD PCP: Maurice Mcclellan MD Status: REG ER Study: Brain/Head without Contrast Date of Exam: 07/28/17 Exam# [id number] Ordering Dr: Jayashree Aguillon DO STUDY: CT BRAIN WITHOUT CONTRAST REASON FOR EXAM: Female, 81 years old. Closed head injury after fall. RADIATION DOSAGE (If Supplied By Facility): CTDIvol = ( 44.99 ) mGy, DLP = ( 796.11 ) mGycm TECHNIQUE: Transaxial CT imaging of the brain was performed without administration of intravenous contrast material. Multiplanar reformations are submitted for interpretation. Individualized dose optimization techniques were used for this CT. COMPARISON: None. FINDINGS: There is a hematoma located lateral to left orbit consistent with recent trauma and soft tissue contusion. Normal calvarium. There is mild cerebral atrophy with widening of the extra- axial spaces and ventricular dilatation. There are areas of decreased attenuation within the white matter tracts of the supratentorial brain, consistent with microvascular disease changes. Normal basal ganglia and thalami. Normal brainstem. There is mild cerebellar atrophy. There is no intracranial hemorrhage. There is mild atherosclerotic calcification of intracranial arteries. There is mucoperiosteal thickening and possibly small amount of fluid in the right maxillary sinus. There is mild mucoperiosteal thickening within the ethmoid sinuses and left sphenoid sinus. CT/Brain/Head without Contrast IMPRESSION: 1. Chronic involutional changes of the brain. 2. Left-sided orbital soft tissue hematoma and contusion. 3. No CT evidence of acute intracranial hemorrhage. Electronically Signed: Magdalena Mcclellan MD at 7:46 EDT , Service support , CC: Maurice Mcclellan MD; Jayashree Aguillon DO Corporate Paralegal: Signed PROTHROMBIN TIME W/INR Collected: 07/28/2017 Status: F Source: ISAIAH 12:00 AM [facility] REPOSITORY Order Comment: RESULT(S) PREVIOUSLY REPORTED ON MANUAL REQUISITION DURING DOWNTIME. TYPE CODE TESTS RESULT OUT OF RANGE REFERENCE UNITS LAB L300.4150 11.7-14.9 SECONDS High PROTIME 28.1 LAB L300.4200 Normal INR 2.6 Performed By: #### L300.3900 #### [facility] [address] [place], [address] CBC-COMPLETE BLOOD CNT Collected: 07/05/2017 Status: F Source: ISAIAH NO DIFF 5:45 AM [facility] REPOSITORY Order Comment: ROOM 215 TYPE CODE TESTS RESULT OUT OF RANGE REFERENCE UNITS LAB L100.1000 4.4-11.0 K/mm3 Low WBC 4.1 LAB L100.1200 4.2-5.4 M/mm3 Low RBC 3.65 LAB L100.1300 12.0-15.0 g/dl Low HGB 11.5 LAB L100.1400 37-47 % Low HCT 35.2 LAB L100.1500 81-99 fL Normal MCV 96.4 LAB L100.1600 27.0-32.0 pg Normal MCH 31.5 LAB L100.1700 32-36 g/gl Normal MCHC 32.7 LAB L100.1810 11.6-14.6 % High RDW CV 15.1 LAB L100.1820 35.1-43.9 fl High RDW SD 50.5 LAB L100.1900 150-450 K/mm3 Normal PLT 166 LAB L100.2000 6.2-12.0 fl Normal MPV 10.7 Performed By: #### L100.0500 #### [facility] [address] [place], [address] HEMOGLOBIN A1C Collected: 07/05/2017 Status: F Source: ISAIAH 5:45 AM [facility] REPOSITORY Order Comment: ROOM 215 TYPE CODE TESTS RESULT OUT OF RANGE REFERENCE UNITS LAB L501.9985 4.2-6.3 % Normal HGB A1C 5.5 Performed By: #### L501.9985 #### [facility] [address] [place], [address] BASIC METABOLIC Collected: 07/05/2017 Status: F Source: ISAIAH PROFILE (BMP) 5:45 AM [facility] REPOSITORY Order Comment: ROOM 215 TYPE CODE TESTS RESULT OUT OF RANGE REFERENCE UNITS LAB L501.0100 74-106 mg/dL Normal GLU 88 Result Comment: Please note revised GLUCOSE reference range effective 2017. LAB L501.1000 7-18 mg/dL High BUN 28 LAB L501.1100 0.55-1.02 mg/dL Normal CREAT,SERUM 0.93 Result Comment: The validity of the calculated GFR AND GFRAA in patients over 70 years has not been determined. Clinical correlation is essential. LAB L501.1110 >60 mL/min Normal EST GFR 61 Result Comment: Non- GFR Calc LAB L501.1115 >60 mL/min Normal EST GFR - AA 74 Result Comment: GFR Calc LAB L501.1300 10-20 RATIO High BUN/CRE 30.1 LAB L501.2200 8.5-10.1 mg/dL Low CA 8.0 LAB L501.5300 136-145 mmol/L NA Normal 141 LAB L501.5600 3.5-5.1 mmol/L K Normal 4.2 LAB L501.5900 98-107 mmol/L CL Normal 106 LAB L501.6100 21.0-32.0 mmol/L Normal CO2 28.0 LAB L501.6200 5-15 Normal GAP 7 Performed By: #### L500.2500, L500.4100, L501.9520 #### [facility] [address] [place], [place], [id number] LIPID PROFILE Collected: 07/05/2017 Status: F Source: SHENANDOAH 5:45 AM [facility] REPOSITORY Order Comment: ROOM 215 TYPE CODE TESTS RESULT OUT OF RANGE REFERENCE UNITS LAB L501.4900 200 mg/dL Normal CHOL 141 Result Comment: <200 mg/dL Desirable 200-240 mg/dL Borderline >240 mg/dL High Risk LAB L501.5000 mg/dL Normal TRIG 53 Result Comment: The drugs N-Acetylcysteine and Metamizole may falsely depress this assay. Serum Triglycerides Reference Interval Normal <150 mg/dL Borderline high 150 - 199 mg/dL High 200 - 499 mg/dL Very High > or = 500 mg/dL LAB L501.6400 mg/dL Normal HDL 78 Result Comment: The drugs N-Acetylcysteine and Metamizole may falsely depress this assay. Reference Range HDL <40 mg/dL Low HDL Cholesterol HDL >or= 60 mg/dL High HDL Cholesterol LAB L501.6500 0-130 mg/dL Normal LDL 52 LAB L501.6600 5-40 mg/dL Normal VLDL 11 Performed By: #### L500.2500, L500.4100, L501.9520 #### [facility] [address] [place], [place], [id number] THYROID STIM HORMONE Collected: 07/05/2017 Status: F Source: SHENANDOAH (TSH) 5:45 AM [facility] REPOSITORY Order Comment: ROOM 215 TYPE CODE TESTS RESULT OUT OF RANGE REFERENCE UNITS LAB L501.9520 0.358-3.74 uIU/mL Low TSH 0.28 Performed By: #### L500.2500, L500.4100, L501.9520 #### [facility] [address] [place], [address] PROTHROMBIN TIME W/INR Collected: 07/05/2017 Status: F Source: ISAIAH 5:45 AM [facility] REPOSITORY Order Comment: ROOM 215 TYPE CODE TESTS RESULT OUT OF RANGE REFERENCE UNITS LAB L300.4150 11.7-14.9 SECONDS High PROTIME 24.5 LAB L300.4200 Normal INR 2.2 Performed By: #### L300.3900 #### [facility] [address] [place], [address] CBC-COMPLETE BLOOD CNT Collected: 06/07/2017 Status: F Source: ISAIAH NO DIFF 5:10 AM [facility] REPOSITORY Order Comment: ROOM 215 CELESTE TYPE CODE TESTS RESULT OUT OF RANGE REFERENCE UNITS LAB L100.1000 4.4-11.0 K/mm3 Low WBC 3.5 LAB L100.1200 4.2-5.4 M/mm3 Low RBC 3.38 LAB L100.1300 12.0-15.0 g/dl Low HGB 10.5 LAB L100.1400 37-47 % Low HCT 32.9 LAB L100.1500 81-99 fL Normal MCV 97.3 LAB L100.1600 27.0-32.0 pg Normal MCH 31.1 LAB L100.1700 32-36 g/gl Low MCHC 31.9 LAB L100.1810 11.6-14.6 % High RDW CV 14.7 LAB L100.1820 35.1-43.9 fl High RDW SD 52.1 LAB L100.1900 150-450 K/mm3 Normal PLT 169 LAB L100.2000 6.2-12.0 fl Normal MPV 10.1 Performed By: #### L100.0500 #### [facility] [address] [place], [address] PROTHROMBIN TIME W/INR Collected: 06/07/2017 Status: F Source: ISAIAH 5:10 AM [facility] REPOSITORY Order Comment: ROOM 215 CELESTE TYPE CODE TESTS RESULT OUT OF RANGE REFERENCE UNITS LAB L300.4150 11.7-14.9 SECONDS High PROTIME 27.0 LAB L300.4200 Normal INR 2.5 Performed By: #### L300.3900 #### [facility] [address] [place], [place], [address] BASIC METABOLIC Collected: 06/07/2017 Status: F Source: ISAIAH PROFILE (BMP) 5:10 AM [facility] REPOSITORY Order Comment: ROOM 215 CELESTE TYPE CODE TESTS RESULT OUT OF RANGE REFERENCE UNITS LAB L501.0100 74-106 mg/dL Normal GLU 84 Result Comment: Please note revised GLUCOSE reference range effective 2017. LAB L501.1000 7-18 mg/dL High BUN 21 LAB L501.1100 0.55-1.02 mg/dL Normal CREAT,SERUM 0.70 Result Comment: The validity of the calculated GFR AND GFRAA in patients over 70 years has not been determined. Clinical correlation is essential. LAB L501.1110 >60 mL/min Normal EST GFR 85 Result Comment: Non- GFR Calc LAB L501.1115 >60 mL/min Normal EST GFR - AA 103 Result Comment: GFR Calc LAB L501.1300 10-20 RATIO High BUN/CRE 29.9 LAB L501.2200 8.5-10.1 mg/dL Low CA 7.7 LAB L501.5300 136-145 mmol/L NA Normal 144 LAB L501.5600 3.5-5.1 mmol/L K Normal 4.0 LAB L501.5900 98-107 mmol/L High CL 109 LAB L501.6100 21.0-32.0 mmol/L Normal CO2 30.0 LAB L501.6200 5-15 Normal GAP 5 Performed By: #### L500.2500, L501.9520 #### [facility] [address] [place], [address] THYROID STIM HORMONE Collected: 06/07/2017 Status: F Source: ISAIAH (TSH) 5:10 AM [facility] REPOS[facility] Order Comment: ROOM 215 CELESTE TYPE CODE TESTS RESULT OUT OF RANGE REFERENCE UNITS LAB L501.9520 0.358-3.74 uIU/mL Low TSH 0.28 Performed By: #### L500.2500, L501.9520 #### [facility] [address] [place], [address] CARDIOLOGY VISIT Observed: 05/15/2017 Status: F Source: ISAIAH REPORT 11:03 AM [facility] REPOSITORY [facility] [address] [place] [address] OFFICE VISIT Date of Service: 05/15/17 MR#: [id number] Acct: [id number] Name: KRYSTAL BROWNE Rep #: [id number] : 1935 Provider: Basil Hummel MD Age/Sex: 81/F Location: [facility] Status: Signed HPI HPI Chief Complaint: Follow-up visit. Details: KRYSTAL BROWNE, is a 81 F who presents to the office today for a follow-up visit. She is a lady with a history of nonischemic cardiomyopathy with an estimated ejection fraction of 15% would been on a beta-nay ARIA inhibitor and diuretics. She is currently [place]ic[place] in [place] and she says that she has been doing well but has had occasional chest discomfort which he describes as dull it lasts a few minutes and goes away spontaneously. She has had no dizziness or diaphoresis she does get some shortness of breath with exertion. She has had no neck arm or jaw discomfort suggest angina. You do remember that she underwent a cardiac catheterization in April 2016 which demonstrated essentially normal coronary arteries with reduced ejection fraction. Her physical exam today here demonstrates reduced air entry at the bases regular rate and rhythm and no pedal edema. Intake Vital Signs05/15/17 Height 5 ft 05/15/17 Weight: 142 lb 05/15/17 Body Mass Index (BMI) 27.7 05/15/17 Blood Pressure 92/58 05/15/17 Respiratory Rate 18 05/15/17 Pulse Rate 84 05/15/17 Pulse Ox 94 Intake Visit Reasons: 6 M FU (needs a.m.) Allergies erythromycin base Allergy (Verified 05/15/17 10:32) Itching mirtazapine [From Remeron] Allergy (Verified 05/15/17 10:32) Itching Opioids - Morphine Analogues Allergy (Verified 05/15/17 10:32) Itching oxycodone HCl [From OxyContin] Allergy (Verified 05/15/17 10:32) Itching sertraline HCl [From Zoloft] Adverse Reaction (Mild, Verified 05/15/17 10:32) GENERAL DISCOMFORT acetaminophen [From Percocet] Adverse Reaction (Verified 05/15/17 10:32) Itching amoxicillin [Amoxicillin] Adverse Reaction (Verified 05/15/17 10:32) Nausea/Vom/Diarrhea codeine Adverse Reaction (Verified 05/15/17 10:32) Nausea morphine Adverse Reaction (Verified 05/15/17 10:32) Nausea/Vom/Diarrhea oxycodone [From Percocet] Adverse Reaction (Verified 05/15/17 10:32) Itching propoxyphene HCl [From Darvon] Adverse Reaction (Verified 05/15/17 10:32) Nausea/Vom/Diarrhea Sulfa (Sulfonamide Antibiotics) Adverse Reaction (Verified 05/15/17 10:32) Itching Medications Acetaminophen [Tylenol] 500 mg PO Q6H PRN PRN 06/27/14 [History Confirmed 05/14/17] Folic Acid 2 mg PO DAILY@0800 06/27/14 [History Confirmed 05/14/17] Levothyroxine [Synthroid] 112 mcg PO QHS 06/27/14 [History Confirmed 05/14/17] Methotrexate 15 mg PO DUGGAN 06/27/14 [History Confirmed 05/14/17] Multivitamins,Therapeutic [Multivitamin] 1 tab PO DAILY 06/27/14 [History Confirmed 05/14/17] Donepezil HCl [Aricept] 10 mg PO QHS 05/03/16 [History Confirmed 05/14/17] Krill/Om-3/Dha/Epa/Phospho/Ast [Megared Prescott-3 Krill Oil Sfgl] 1 cap PO DAILY 05/03/16 [History Confirmed 05/03/16] Memantine HCl [Namenda] 10 mg PO BID 05/03/16 [History Confirmed 05/14/17] Furosemide [Lasix] 40 mg PO DAILY tab 05/07/16 [Rx Confirmed 05/14/17] losartan 25 mg tablet 25 mg PO DAILY #90 tab 05/06/17 [Rx Confirmed 05/14/17] Lactobacillus acidophilus capsule 2,000 mmu cells PO BID 05/14/17 [History Confirmed 05/14/17] atorvastatin 20 mg tablet 20 mg PO QHS tab 05/14/17 [History Confirmed 05/14/17] calcium carb-vit D3-minerals 600 mg calcium-400 unit tablet 1 tab PO QDAY 05/14/17 [History Confirmed 05/14/17] carvedilol 3.125 mg tablet 3.125 mg PO BID 05/14/17 [History Confirmed 05/14/17] cholecalciferol (vitamin D3) 400 unit capsule 800 unit PO QDAY cap 05/14/17 [History Confirmed 05/14/17] cyanocobalamin (vit B-12) 500 mcg tablet 500 mcg PO .QOD tab 05/14/17 [History Confirmed 05/14/17] doxycycline hyclate 100 mg capsule 100 mg PO BID cap 05/14/17 [History Confirmed 05/14/17] duloxetine 20 mg capsule,delayed release 20 mg PO QHS cap 05/14/17 [History Confirmed 05/14/17] spironolactone 25 mg tablet 25 mg PO QAM 05/14/17 [History Confirmed 05/14/17] warfarin 5 mg tablet 5 mg PO QDAY 05/14/17 [History Confirmed 05/14/17] PFS Medical History Right bundle branch block (Chronic) Chronic systolic (congestive) heart failure (Chronic) Hyperlipidemia (Chronic) Non-ischemic cardiomyopathy (Chronic) Hypertension (Chronic) Paroxysmal atrial fibrillation (Chronic) Anxiety (Chronic) GERD (gastroesophageal reflux disease) (Chronic) Hypoparathyroidism (Chronic) Hypothyroidism (Chronic) Non-ST elevation (NSTEMI) myocardial infarction (Chronic) Osteoarthritis (Chronic) Parkinson disease (Chronic) Rheumatoid arthritis (Chronic) Thyroid cancer (Chronic) Surgical History History of left heart catheterization (Chronic 05/07/16) H/O hand surgery (Chronic) H/O inguinal hernia repair (Chronic) H/O parathyroidectomy (Chronic) H/O thyroidectomy (Chronic) History of hysterectomy (Chronic) History of total knee arthroplasty (Chronic) Hx of cholecystectomy (Chronic) Family History Father Myocardial infarction Mother CVA (cerebral vascular accident) Sister Diabetes Social History Smoking Status: Former smoker ROS Const Const: Positive for fatigue and weakness; negative for difficulty sleeping, frequent falls, headache(s) or excessive sweating Eyes Eyes: Negative for loss of peripheral vision, transient loss of vision, blurry vision or double vision ENT ENT: Negative for headache(s), dizziness, Nosebleed/epistaxis or balance problems Cardio Chest Pain: Yes Onset: at rest Location: mid sternal, left chest Duration: minutes Exacerbation: rest Edema: Bilateral (Trace BLE edema, compression stockings in place) Muscle aches with walking: None Resp Respiratory: Positive for SOB with activity (SOB with ambulation) and crackles (Bilateral crackles lower 1/2 left>right); negative for SOB at rest, SOB orthopnea\SOB lying down or paroxysmal nocturnal dyspnea GI GI: Negative nausea or heartburn : Negative for hematuria Musc Musc: Negative for muscle aches/ myalgia, muscle weakness, joint pain or balance problems Skin Skin: Negative non-healing lesions, unusual bruising or rash Neuro Neuro: Positive for weakness; negative for frequent falls, blurry vision, headache(s), dizziness, lightheadedness, orthostatic symptoms or double vision Selvin Hematologic/Lymphatic: Negative for easy bruising Endo Endo: Positive for fatigue; negative for excessive sweating or increased thirst/drinking Psych Psych: Negative for anxiety or depression Allergy Allergy/Immunology: Negative for hives, Negative for rash Cardiology Exam Const Appearance: cooperative, healthy appearing, well developed, well groomed and no acute distress Nutritional Appearance: well nourished and average body habitus Orientation: alert, awake and oriented x3 Head Head: normal to inspection, normocephalic and atraumatic Ears: hearing grossly normal bilaterally and external ears normal Nose: external nose normal, nasal mucous membranes and turbinates normal, nares normal, septum normal, no nasal discharge Face and Sinus: face symmetric Mouth: oral mucosae normal, tongue normal, oropharynx normal and moist mucous membranes Teeth and gingiva: dentition normal Throat: posterior oropharynx normal, tonsils normal and uvula midline Eyes General: appearance normal, both eyes and all related structures Eyelids: eyelids normal Conjunctivae: conjunctivae normal Pupils: PERRL, normal by confrontation and accommodation normal EOM: EOM intact bilaterally Neck Neck: normal visual inspection, trachea midline and no JVD JVD: +5 Carotids: normal carotid upstroke and bounding pulses Chest Chest inspection: normal inspection of the chest, symmetric chest movement and normal respiratory effort Auscultation: Bilateral: Diminished Base Cardio Palpation: normal PMI Rate: regular rate Rhythm: regular rhythm Heart sounds: S1 normal, S2 normal and normal, physiologic split S2; negative rub, gallop or murmur GI GI: normal to inspection, soft, no hepatosplenomegaly and bowel sounds present Neuro General: alert, awake, oriented x3, no focal sensory deficit, gait normal and moves all extremities Skin Skin: no rashes or lesions noted Extremities Pulses: Normal: Right Femoral Pulse, Left Femoral Pulse, Right Dorsalis Pedis Pulse, Left Dorsalis Pedis Pulse, Right Posterior Tibial Pulse, Left Posterior Tibial Pulse, Right Radial Pulse, Left Radial Pulse Lower Extremity Edema: None: Bilateral Musculoskel Musculoskeletal: No joint tenderness Psych Psychological: normal affect Assessment AND Plan 1. Non-ischemic cardiomyopathy I42.8 Plan She does have a history of nonischemic cardio myopathy remains on her current medications. At this particular time I would not suggest that we make any changes. We may need to reassess her left ventricular function in the future. Her most recent echocardiogram in October demonstrated an ejection fraction of 20%. 2. Essential hypertension I10 Plan Her blood pressure appears to be under good control at this particular time and I would not suggest that we make any changes. 3. Paroxysmal atrial fibrillation I48.0 Plan She is still having paroxysms of atrial fibrillation. She remains on the beta-nay for rate control as well as anticoagulation. Due to her left ventricular systolic dysfunction I would not suggest that we make any changes. Overall she is remaining stable. 4. Pure hypercholesterolemia E78.00; E78.0 Plan She is on lipid-lowering medication which will be continued at this particular time. Thank you for allowing me to participate in the care of your patient. Please don't hesitate to call if any issues arise Plan Detail Follow Up 6 Months (nurse leader) Coding Level of Care Code Off vis,est,level 3 Diagnoses Non-ischemic cardiomyopathy I42.8 Essential hypertension I10 Hypertension type: essential hypertension Paroxysmal atrial fibrillation I48.0 Pure hypercholesterolemia E78.00; E78.0 Hyperlipidemia type: pure hypercholesterolemia Coding Level of Care Code Off vis,est,level 3 Diagnoses Non-ischemic cardiomyopathy I42.8 Essential hypertension I10 Hypertension type: essential hypertension Paroxysmal atrial fibrillation I48.0 Pure hypercholesterolemia E78.00; E78.0 Hyperlipidemia type: pure hypercholesterolemia 05/15/17 1103 <Electronically signed by Basil Hummel MD> Date Basil Hummel MD Cosigner Signature: Date (if applicable) CC: Maurice Mcclellan MD CBC-COMPLETE BLOOD CNT Collected: 05/10/2017 Status: F Source: ISAIAH NO DIFF 6:40 AM [facility] REPOS[facility] Order Comment: 215 TYPE CODE TESTS RESULT OUT OF RANGE REFERENCE UNITS LAB L100.1000 4.4-11.0 K/mm3 Normal WBC 4.4 LAB L100.1200 4.2-5.4 M/mm3 Low RBC 3.52 LAB L100.1300 12.0-15.0 g/dl Low HGB 11.1 LAB L100.1400 37-47 % Low HCT 34.7 LAB L100.1500 81-99 fL Normal MCV 98.6 LAB L100.1600 27.0-32.0 pg Normal MCH 31.5 LAB L100.1700 32-36 g/gl Normal MCHC 32.0 LAB L100.1810 11.6-14.6 % Normal RDW CV 14.4 LAB L100.1820 35.1-43.9 fl High RDW SD 50.2 LAB L100.1900 150-450 K/mm3 Normal PLT 219 LAB L100.2000 6.2-12.0 fl Normal MPV 10.3 Performed By: #### L100.0500 #### [facility] [address] [place], [address] BASIC METABOLIC Collected: 05/10/2017 Status: F Source: ISAIAH PROFILE (BMP) 6:40 AM [facility] REPOS[facility] Order Comment: 215 TYPE CODE TESTS RESULT OUT OF RANGE REFERENCE UNITS LAB L501.0100 74-106 mg/dL Normal GLU 90 Result Comment: Please note revised GLUCOSE reference range effective 2017. LAB L501.1000 7-18 mg/dL High BUN 29 LAB L501.1100 0.55-1.02 mg/dL Normal CREAT,SERUM 0.78 Result Comment: The validity of the calculated GFR AND GFRAA in patients over 70 years has not been determined. Clinical correlation is essential. LAB L501.1110 >60 mL/min Normal EST GFR 75 Result Comment: Non- GFR Calc LAB L501.1115 >60 mL/min Normal EST GFR - AA 91 Result Comment: GFR Calc LAB L501.1300 10-20 RATIO High BUN/CRE 37.3 LAB L501.2200 8.5-10.1 mg/dL Low CA 8.0 LAB L501.5300 136-145 mmol/L NA Normal 145 LAB L501.5600 3.5-5.1 mmol/L K Normal 4.0 LAB L501.5900 98-107 mmol/L High CL 110 LAB L501.6100 21.0-32.0 mmol/L Normal CO2 27.0 LAB L501.6200 5-15 Normal GAP 8 Performed By: #### L500.2500 #### [facility] [address] [place], [address] PROTHROMBIN TIME W/INR Collected: 05/10/2017 Status: F Source: SHENANDOAH 6:40 AM [facility] TYPE CODE TESTS RESULT OUT OF RANGE REFERENCE UNITS LAB L300.4150 11.7-14.9 SECONDS High PROTIME 25.0 LAB L300.4200 Normal INR 2.3 Performed By: #### L300.3900 #### [facility] [address] [place], [address] PROTHROMBIN TIME W/INR Collected: 05/03/2017 Status: F Source: SHENANDOAH 6:15 AM [facility]POS[facility] Order Comment: ROOM 215 TYPE CODE TESTS RESULT OUT OF RANGE REFERENCE UNITS LAB L300.4150 11.7-14.9 SECONDS High PROTIME 19.5 LAB L300.4200 Normal INR 1.6 Performed By: #### L300.3900 #### [facility] [address] [place], [address] PROTHROMBIN TIME W/INR Collected: 04/26/2017 Status: F Source: ISAIAH 6:20 AM [facility] TYPE CODE TESTS RESULT OUT OF RANGE REFERENCE UNITS LAB L300.4150 11.7-14.9 SECONDS High PROTIME 16.7 LAB L300.4200 Normal INR 1.4 Performed By: #### L300.3900 #### [facility] [address] [place], [place], [address] PROTHROMBIN TIME W/INR Collected: 04/12/2017 Status: F Source: ISAIAH 5:31 AM [facility] TYPE CODE TESTS RESULT OUT OF RANGE REFERENCE UNITS LAB L300.4150 11.7-14.9 SECONDS High PROTIME 18.3 LAB L300.4200 Normal INR 1.6 Performed By: #### L300.3900 #### [facility] [address] [place], [address] CBC-COMPLETE BLOOD CNT Collected: 04/12/2017 Status: F Source: ISAIAH NO DIFF 5:31 AM [facility] TYPE CODE TESTS RESULT OUT OF RANGE REFERENCE UNITS LAB L100.1000 4.4-11.0 K/mm3 Normal WBC 7.1 LAB L100.1200 4.2-5.4 M/mm3 Low RBC 3.37 LAB L100.1300 12.0-15.0 g/dl Low HGB 10.5 LAB L100.1400 37-47 % Low HCT 33.4 LAB L100.1500 81-99 fL High MCV 99.1 LAB L100.1600 27.0-32.0 pg Normal MCH 31.2 LAB L100.1700 32-36 g/gl Low MCHC 31.4 LAB L100.1810 11.6-14.6 % High RDW CV 15.9 LAB L100.1820 35.1-43.9 fl High RDW SD 57.1 LAB L100.1900 150-450 K/mm3 Normal PLT 282 LAB L100.2000 6.2-12.0 fl Normal MPV 9.6 Performed By: #### L100.0500 #### [facility] [address] [place], [place], [address] BASIC METABOLIC Collected: 04/12/2017 Status: F Source: ISAIAH PROFILE (BMP) 5:31 AM [facility] TYPE CODE TESTS RESULT OUT OF RANGE REFERENCE UNITS LAB L501.0100 74-106 mg/dL Normal GLU 90 Result Comment: Please note revised GLUCOSE reference range effective 2017. LAB L501.1000 7-18 mg/dL High BUN 34 LAB L501.1100 0.55-1.02 mg/dL Normal CREAT,SERUM 0.78 Result Comment: The validity of the calculated GFR AND GFRAA in patients over 70 years has not been determined. Clinical correlation is essential. LAB L501.1110 >60 mL/min Normal EST GFR 76 Result Comment: Non- GFR Calc LAB L501.1115 >60 mL/min Normal EST GFR - AA 91 Result Comment: GFR Calc LAB L501.1300 10-20 RATIO High BUN/CRE 43.8 LAB L501.2200 8.5-10.1 mg/dL Low CA 8.0 LAB L501.5300 136-145 mmol/L NA Normal 142 LAB L501.5600 3.5-5.1 mmol/L K Normal 4.5 LAB L501.5900 98-107 mmol/L CL Normal 105 LAB L501.6100 21.0-32.0 mmol/L Normal CO2 29.0 LAB L501.6200 5-15 Normal GAP 8 Performed By: #### L500.2500, L500.3400, L501.9520 #### [facility] [address] [place], [place], [address] LIVER PROFILE Collected: 04/12/2017 Status: F Source: ISAIAH 5:31 AM [facility] TYPE CODE TESTS RESULT OUT OF RANGE REFERENCE UNITS LAB L501.1500 6.4-8.2 g/dL Low T PROT 5.8 LAB L501.1800 3.2-5.0 g/dL Low ALB 2.9 LAB L501.1950 2.2-4.2 g/dL Normal GLOB 2.9 LAB L501.4100 15-37 U/L Normal AST 26 LAB L501.4305 45-117 U/L High ALK P 138 LAB L501.4405 13-56 U/L Normal ALT 18 Result Comment: Please note revised ALT reference range effective 2017. LAB L501.4600 0.20-1.00 mg/dL Normal T BILI 0.50 LAB L501.4700 0.00-0.30 mg/dL Normal D BILI 0.15 Performed By: #### L500.2500, L500.3400, L501.9520 #### [facility] [address] [place], [address] THYROID STIM HORMONE Collected: 04/12/2017 Status: F Source: ISAIAH (TSH) 5:31 AM [facility] TYPE CODE TESTS RESULT OUT OF RANGE REFERENCE UNITS LAB L501.9520 0.358-3.74 uIU/mL High TSH 5.30 Performed By: #### L500.2500, L500.3400, L501.9520 #### [facility] [address] [place], [address] HEMOGLOBIN A1C Collected: 04/12/2017 Status: F Source: ISAIAH 5:31 AM [facility] TYPE CODE TESTS RESULT OUT OF RANGE REFERENCE UNITS LAB L501.9985 4.2-6.3 % Normal HGB A1C 5.9 Performed By: #### L501.9985 #### [facility] [address] [place], [address] ALLERGIES ALLERGIES DATE TYPE / NAME / CODE REACTION SEVERITY SOURCE CODE 05/15/2017 Drug oxycodone Itching Unknown [place] Allergy/41 HCl/[id number](RXN Community [id number]([facility]) Repository 05/15/2017 Drug propoxyphene Nausea/Vom/Diarr Unknown [place] Allergy/41 HCl/[id number](RXN hea Community 0469985([facility]) Repository 05/15/2017 Drug sertraline GENERAL GA [place] Allergy/41 HCl/[id number](RXN DISCOMFORT Community 2175914([facility]) Repository 05/15/2017 Drug Opioids - Morphine Itching Unknown [place] Allergy/41 Analogues/R0513782 Community 2054055([facility](RXNORM) [facility]) Repository 05/15/2017 Drug Sulfa (Sulfonamide Itching Unknown [place] Allergy/41 Antibiotics)/F0010 Community 1691928( [address](RXNORM) [facility]) Repository 05/15/2017 Drug morphine/[id number] Nausea/Vom/Diarr Unknown [place] Allergy/41 5(RXNORM) a Community 8626446([facility]) Repository 05/15/2017 Drug codeine/[id number] Nausea Unknown [place] Allergy/41 (RXNORM) Community 1825805([facility]) Repository 05/15/2017 Drug oxycodone/W0720617 Itching Unknown [place] Allergy/41 58(RXNORM) Community 5158726([facility]) Repository 05/15/2017 Drug acetaminophen/F006 Itching Unknown [place] Allergy/41 422103(RXNORM) Community 1143648([facility]) Repository 05/15/2017 Drug erythromycin Itching Unknown [place] Allergy/41 base/[id number](RX Community 4048632([facility]) [facility]) Repository 05/15/2017 Drug amoxicillin/X39991 Nausea/Vom/Diarr Unknown [place] Allergy/41 3675(RXNORM) [facility] Community 3112934([facility]) Repository 05/15/2017 Drug mirtazapine/T60278 Itching Unknown [place] Allergy/41 6054(RXNORM) [facility] 7183977([facility]) Repository ENCOUNTERS ENCOUNTERS ADMIT/DISCHARGE ACCOUNT ADMITTING ENCOUNTER LOCATION SOURCE NUMBER CLASS 03/03/2018 [id number] [facility] ng:SHUKRI Repository 01/29/2018 [id number] [facility] ng:SHUKRI Repository 01/01/2018 [id number] [facility] ng:SHUKRI Repository 12/23/2017 [id number] Ambulatory [facility] Repository 12/18/2017/12/19/19 [id number] Ambulatory BMSBuilding:BM Isaiah [facility] Repository 12/17/2017 [id number] [facility]2017 [id number] Ambulatory [facility] ng:OLS.LBEN Repository 10/29/2017 [id number] Ambulatory [facility] ng:OLS.LBEN Repository 10/01/2017 [id number] [facility] ng:OLS.LBEN Repository 09/30/2017 [id number] Ambulatory [facility] Repository 08/30/2017 [id number] Ambulatory [facility] ng:OLS.LBEN Repository 08/02/2017 [id number] Ambulatory [facility] ng:OLS.LBEN Repository 07/28/2017/07/29/19 [id number] Emergency [address] ng:ED Repository 07/05/2017 [id number] Ambulatory [facility] ng:OLS.LBEN Repository 06/07/2017 [id number] [facility] ng:OLS.LBEN Repository 05/15/2017/05/16/19 [id number] Ambulatory BMSBuilding:[address] Repository 05/14/2017 [id number] Ambulatory BMSBuilding:[facility] Repository 05/10/2017 [id number] [facility] ng:OLS.LBEN Repository 05/03/2017 [id number] [facility] ng:OLS.LBEN Repository 04/26/2017 [id number] Ambulatory [facility] ng:OLS.LBEN Repository 04/12/2017 [id number] [facility] ng:OLS.LBEN Repository PAYERS PAYERS ENCOUNTER GUARANTOR PAYER SUBSCRIBER SOURCE 03/03/2018 KRYSTAL VEGA Primary NOT GIVENUNK [place] [employer] Insurance:SELF PAY [address] Number: [place] Date:2018-03-03 [id number]: () 01/29/2018 KRYSTAL Iglesia [facility] Primary KRYSTAL M [place] [employer] Insurance:MEDICARE KINGDOB: Community [id number] PART A [id number] Number[facility] [id number]: (330) Date:2018-01-29 [id number] (HP) 01/29/2018 Secondary KRYSTAL M [place] Insurance:HUMANA [facility] [id number] Hospital Number: Repository [id number] Date:8665-16-51OT [address] [address]VF: 01/29/2018 Tertiary NOT GIVENUNK [place] Insurance:SELF PAY [facility] Number: Effective Repository Date:2018-01-29 01/01/2018 KRYSTAL M [facility] Primary KRYSTAL M [place] [employer] Insurance:HUMANA [facility] [id number] [facility] [id number] Number: Repository [place], [place] [id number]: ([phone]) Date:4133-18-32EC [phone] () [address] [place] [phone]: 01/01/2018 Secondary KRYSTAL M [place] Insurance:MEDICARE [facility] PART A [facility] [id number] Hospital Number: Repository [id number] Date:2018-01-01 01/01/2018 Tertiary NOT GIVENUNK [place] Insurance:[facility]LF [facility]Y [facility] Hospital Number: Effective Repository Date:2018-01-01 12/23/2017 [facility]STAL M [facility] [id number] Insurance:MedicarePol [facility]als [place] ic Number: [id number] [place], [place] [id number] [place] [id number]: (440) Date:Plan Name:Dannielle BAZAN [phone] (HP) A [facility], [place] [phone]: (HP) 12/23/2017 Secondary [facility] Number: [id number] Repository [id number] Date:Plan Name:[facility], [place] [id number]: (HP) 12/23/2017 Tertiary [facility] Insurance:[facility]: [facility] Number: [id number] Repository [id number] [address] Date:Plan Name:[facility], [place] [id number]: (HP) 12/18/2017 KRYSTAL [facility] Primary KRYSTAL M Isaiah [place] Insurance:[facility]ICARE [facility]: [facility] [id number] PART A [facility] [id number] [facility] Number: [place] [id number]: ([phone]) Date:2017-05-15 [phone] (HP) 12/18/2017 Secondary KRYSTAL M [place] [facility]: [facility] [id number] Hospital Number: Repository [id number] Date:[id number] [address]LR: 12/18/2017 [facility] Number: Effective Repository Date:2017-12-18 12/17/2017 KRYSTAL [facility] Primary KRYSTAL M [place] Insurance:MEDICARE KINGDOB: [facility] [id number] PART A [facility] [id number] Hospital of [facility] Number: [place] [id number]: ([phone]) Date:2017-12-17 [phone] (HP) 12/17/2017 Secondary KRYSTAL M Isaiah [facility]: [facility] [id number] Hospital Number: Repository [id number] Date:1521-07-74UW [address] [place] [address]NP: 12/17/2017 Tertiary NOT GIVENUNK [place] Insurance:SELF PAY [facility] ([place], [place]) Number: Effective Repository Date:2017-12-17 11/19/2017 KRYSTAL Iglesia [place] Primary KRYSTAL M [place] Insurance:MEDICARE KINGDOB: Community [id number] PART A [facility] [id number] Hospital of [facility] Number: Repository [place], [place] [id number]: ([phone]) Date:2017-11-19 [phone] () 11/19/2017 Secondary KRYSTAL M Isaiah Insurance:HUMANA KINGDOB: [facility] [id number] Hospital Number: Repository [id number] Date:7785-99-00HM[address] [address]BS: 11/19/2017 Tertiary NOT GIVENUNK [place] Insurance:[facility]LF [facility]Y [facility] Hospital Number: Effective Repository Date:2017-11-19 10/29/2017 KRYSTAL Iglesia [place] Primary KRYSTAL M [place] Insurance:MEDICARE KINGDOB: Community [id number] PART A [facility] [id number] Hospital of [facility] Number: [place]ository [place] [id number]: ([phone]) Date:2017-10-291602 () 10/29/2017 Secondary KRYSTAL M Isaiah Insurance:HUMANA KINGDOB: [facility] [id number] Hospital Number: Repository [id number] Date:6364-20-79RV [address] [place] [address]IP: 10/29/2017 Tertiary NOT GIVENUNK [place] Insurance:[facility]LF [facility]Y [facility] Hospital Number: Effective Repository Date:2017-10-29 10/01/2017 KRYSTAL Iglesia [place] Primary KRYSTAL M [place] Insurance:MEDICARE KINGDOB: Community [id number] PART A [facility] [id number] Hospital of [facility] Number: [place]ository [place] [id number]: ([phone]) Date:2017-10-01 [phone] (HP) 10/01/2017 Secondary KRYSTAL M [place] Insurance:HUMANA TAYLORSDOB: [facility]CIALPolkn[facility] [id number] Hospital Number: Repository [id number] Date:7152-98-94NW[address] [address]NJ: 10/01/2017 Tertiary NOT GIVENUNK Isaiah Insurance:SELF PAY [facility] Number: Effective Repository Date:2017-10-01 09/30/2017 [facility] [id number] [facility]: [facility] [facility] icy Number: [id number] Repository [place], [place] [id number] 671 [address] [id number]: ([phone]) Date:Plan Name:[facility] [phone] (HP) A [place], [place] [id number]: (HP) 09/30/2017 Secondary KRYSTAL University Insurance[facility] icy Number: [id number] Repository [id number] [address] Date:Plan Name:[facility], [place] [id number]: (HP) 09/30/2017 [facility]: [facility] HumanaPolicy Number: [id number] Repository [id number] [address] Date:Plan Name:[facility] Center[facility]OD[facility] [place] [id number]: (HP) 08/30/2017 KRYSTAL Iglesia [facility] Primary KRYSTAL M [place] Insurance:[facility]ARE [facility]: [facility] [id number] PART A BPolicy [id number] Hospital of [facility] Number: [place] [id number]: (330) Date:2017-08-3030 () 08/30/2017 Secondary KRYSTAL M [place] Insurance:HUMANA KINGDOB: Community COMMERCIALPolicy [id number] Hospital Number: Repository [id number] Date:4981-27-49JE [address] [place] [address]FL: 08/30/2017 Tertiary NOT GIVENUNK Isaiah Insurance:SELF PAY [facility] Hospital Number: Effective Repository Date:2017-08-30 08/02/2017 Krystal M [place] Primary Krystal M [place] Insurance:MEDICARE KingDOB: Community [id number] PART A [facility] [id number] Hospital of [facility] Number: Repository [place], [place] [id number]: 330) Date:2017-08-02 [phone] () 08/02/2017 Secondary Krystal M Isaiah Insurance:HUMANA KingDOB: [facility] [id number] Hospital Number: Repository [id number] Date:3515-73-85EW [address] [place] [address]LD: 08/02/2017 Tertiary NOT GIVENUNK [place] Insurance:[facility]LF [facility]Y [facility] Hospital Number: Effective Repository Date:2017-08-02 07/28/2017 Krystal Iglesia [place] Primary Krystal M [place] Insurance:MEDICARE KingDOB: [facility] [id number] PART A [facility] [id number] Hospital of [facility] Number: Repository [place] [id number]: ([phone]) Date:2017-07-28 [phone] () 07/28/2017 Secondary Krystal M Isaiah Insurance:HUMANA KingDOB: [facility]Barn[facility] [id number] Hospital Number: Repository [id number] Date:0566-48-32PZ [address] [place] [address]QB: 07/28/2017 Tertiary NOT GIVENUNK Isaiah Insurance:[facility]LF [facility]Y [facility] Hospital Number: Effective Repository Date:2017-07-28 07/05/2017 Krystalkamryn Vega Primary Krystal M Isaiah [place] Insurance:MEDICARE KingDOB: [address] A [facility] [id number] Whitfield Memorial HospitalBURG Number: Repository [place] [id number]: ([phone]) Date:2017-07-05 [phone] () 07/05/2017 Secondary Krystal M [place] Insurance:[facility]: [facility] [id number] Hospital Number: Repository [id number] Date:2604-85-56FA [address] [place] [address]LI: 07/05/2017 Tertiary NOT GIVENUNK Isaiah Insurance:SELF PAY [facility], [place]) Number: Effective Repository Date:2017-07-05 06/07/2017 Krystalioana [id number] Primary Krystal M [place] Insurance:MEDICARE KingDOB: [facility] [id number] Hospital 12986Wdn: (440) Number: Repository [phone] () [id number] Date:2017-06-07 06/07/2017 Secondary Krystal M [place] Insurance:[facility]: [facility] [id number] Hospital Number: Repository [id number] Date:0957-52-61GI [address] [address]QH: 06/07/2017 Tertiary NOT GIVENUNK [place] Insurance:SELF PAY [facility], [place]) Number: Effective Repository Date:2017-06-07 05/15/2017 KRYSTALIoana [id number] Primary KRYSTAL M Isaiah [place] Insurance:MEDICARE KINGDOB: [facility] A [facility] [id number] Hospital 23691Skt: (440) Number: Repository [phone] () [id number] Date:2017-01-24 05/15/2017 Secondary KRYSTAL M Isaiah [facility]: [place] [id number] Hospital Number: Repository [id number] Date:0331-38-23FP [address] [address]TN: 05/15/2017 Tertiary NOT GIVENUNK Isaiah Insurance:SELF PAY [facility], [place]) Number: Effective Repository Date:2017-01-24 05/14/2017 KRYSTALIoana [id number] Primary KRYSTAL M [place] Insurance:MEDICARE [facility] [place] PART A [facility] [id number] Hospital [address]Hoy: [phone]) Number: Repository [phone] () [id number] Date:2017-05-14 05/14/2017 Secondary KRYSTAL M Isaiah Insurance:HUMANA [facility]: [facility] [id number] Hospital Number: Repository [id number] Date:7242-88-41PC[address] [address]PK: 05/14/2017 Tertiary NOT GIVENUNK [place] Insurance:[facility]LF [facility]Y [facility] Hospital Number: Effective Repository Date:2017-05-14 05/10/2017 Krystal Iglesia [place] Primary Krystal M [place] Insurance:MEDICARE [place]DOB: [place] [id number] PART A [facility] [id number] Hospital of [facility] Number: Repository [place], [place] [id number]: 330) Date:2017-05-10 [phone] () 05/10/2017 Secondary Krystal M Isaiah Insurance:HUMANA [facility]: [facility] [id number] Hospital Number: Repository [id number] Date:2874-77-36KV[address] [address]LD: 05/10/2017 Tertiary NOT GIVENUNK Isaiah Insurance:[facility]LF [facility]Y [facility] Hospital Number: Effective Repository Date:2017-05-10 05/03/2017 Krystal Iglesia [place]WE[place] Primary Krystal M Isaiah [place] Insurance:MEDICARE [facility]: [facility]1715 PART A [facility] [id number] Hospital of Chester County Number: Repository [place], [place] [id number]: 330) Date:2017-05-03 () 05/03/2017 Secondary Krystal M [place] Insurance:HUMANA KingDOB: Community COMMERCIALPoly [id number] Hospital Number: Repository [id number] Date:0354-24-12LN [address] [place] [address]LS: 05/03/2017 Tertiary NOT GIVENUNK [place] Insurance:SELF PAY [facility] Hospital Number: Effective Repository Date:2017-05-03 04/26/2017 Krystal M [place] Primary Krystal M Isaiah [place] Insurance:MEDICARE KingDOB: Community [id number] PART A [facility] [id number] Hospital of [facility] Number: [place], [place] [id number]: 330) Date:2017-04-26 (HP) 04/26/2017 Secondary Krystal M [place] Insurance:HUMANA KingDOB: Community COMMERCIALPolicy [id number] Hospital Number: Repository [id number] Date:1240-03-90YA[address] [address]EQ: 04/26/2017 Tertiary NOT GIVENUNK [place] Insurance:SELF PAY [facility] Hospital Number: Effective Repository Date:2017-04-26 04/12/2017 Krystal M [id number] Primary Krystal M [place] Insurance:MEDICARE KingDOB: Community RDWESTVIEW HEALTHY PART A [facility] [id number] Number: Repository [id number]: 330 [id number] () Date:2017-04-12 04/12/2017 Secondary Krystal M [place] Insurance:HUMANA KingDOB: Community COMMERCIALPolicy [id number] Hospital Number: Repository [id number] Date:8297-78-00WJ [address] [place] [address]OQ: 04/12/2017 Tertiary NOT GIVENUNK Isaiah Insurance:SELF PAY [facility] Number: Effective Repository Date:2017-04-12
== END ==
LOC: OLS.WHLBEN 05:00
PROVIDERS: Visit Provider Family Medicine
DX: I11.0 Hypertensive heart disease with heart failure (principal); I50.9 Heart failure, unspecified
CPT/HCPCS: 36415; 80048; 85027

== ENCOUNTER → 2018-03-03 05:00 | Outpatient (REF) | payer MEDICARE, OTHER, SELFPAY ==
[2017-12-18 09:36] VITALS: BMI 28.5
[2018-03-03 08:40] LABS: Hematocrit 35.8 % (37-47); Hemoglobin 11.5 g/dl (12.0-15.0); Mean Corp Hgb Conc 32.1 g/gl (32-36); Mean Corpuscular Hgb 31.4 pg (27.0-32.0); Mean Corpuscular Volume 97.8 fL (81-99); Platelet Count 164 K/mm3 (150-450); RBC Distribution Width CV 12.9 % (11.6-14.6); RBC Distribution Width SD 44.8 fl (35.1-43.9); Red Blood Count 3.66 M/mm3 (4.2-5.4)
[2018-03-03 08:59] LABS: Anion Gap 9 (5-15); BUN 25 mg/dL (7-18); BUN/Creat Ratio 30.2 RATIO (10-20); Calcium,Total 7.7 mg/dL (8.5-10.1); Chloride 106 mmol/L (98-107); Creatinine, Serum 0.83 mg/dL (0.55-1.02); EST Glomerular Filtration Rate 70 mL/min (>60); Est Glom Filt Rate - Afr Amer 85 mL/min (>60); Glucose 85 mg/dL (74-106); Potassium 3.6 mmol/L (3.5-5.1); Sodium Level 143 mmol/L (136-145); Thyroid Stim Hormone (TSH) 9.81 uIU/mL (0.358-3.74)
[2018-03-03 09:05] LABS: Scan Indicated on CBC? Y/N NO
== END ==
LOC: OLS.WHLBEN 05:00
PROVIDERS: Visit Provider Family Medicine
DX: I50.9 Heart failure, unspecified (principal); I10 Essential (primary) hypertension; E03.9 Hypothyroidism, unspecified
CPT/HCPCS: 36415; 80048; 84443; 85027

== ENCOUNTER → 2018-03-17 15:55 | Outpatient (REF) | payer MEDICARE, OTHER, SELFPAY ==
[2018-03-17 16:47] LABS: Prothrombin Time (Protime)PT. 42.1 SECONDS (11.7-14.9)
[2018-03-17 17:10] LABS: International Normalized Ratio 4.4
== END ==
LOC: OLS.WHLBEN 15:55
PROVIDERS: Visit Provider Family Medicine
DX: I48.91 Unspecified atrial fibrillation (principal)
CPT/HCPCS: 36415; 85610

== ENCOUNTER → 2018-03-24 04:00 | Outpatient (REF) | payer MEDICARE, OTHER, SELFPAY ==
[2018-03-24 06:20] LABS: International Normalized Ratio 1.7; Prothrombin Time (Protime)PT. 19.9 SECONDS (11.7-14.9)
== END ==
LOC: OLS.WHLBEN 04:00
PROVIDERS: Visit Provider Family Medicine
DX: I48.91 Unspecified atrial fibrillation (principal)
CPT/HCPCS: 36415; 85610

== ENCOUNTER → 2018-04-03 05:00 | Outpatient (REF) | payer MEDICARE, OTHER, SELFPAY ==
[2018-04-03 08:38] LABS: Hemoglobin 12.3 g/dl (12.0-15.0); Mean Corp Hgb Conc 31.5 g/gl (32-36); Mean Corpuscular Hgb 31.1 pg (27.0-32.0); Mean Corpuscular Volume 98.5 fL (81-99); Mean Platelet Vol. 10.7 fl (6.2-12.0); Platelet Count 156 K/mm3 (150-450); RBC Distribution Width CV 14.4 % (11.6-14.6); RBC Distribution Width SD 50.6 fl (35.1-43.9); Red Blood Count 3.96 M/mm3 (4.2-5.4); White Blood Count 3.9 K/mm3 (4.4-11.0)
[2018-04-03 08:39] LABS: Scan Indicated on CBC? Y/N NO
[2018-04-03 08:51] LABS: BUN 25 mg/dL (7-18); Creatinine, Serum 0.88 mg/dL (0.55-1.02); EST Glomerular Filtration Rate 65 mL/min (>60); Glucose 86 mg/dL (74-106)
[2018-04-03 08:52] LABS: Anion Gap 8 (5-15); BUN/Creat Ratio 28.5 RATIO (10-20); Calcium,Total 8.3 mg/dL (8.5-10.1); Chloride 107 mmol/L (98-107); Est Glom Filt Rate - Afr Amer 79 mL/min (>60); Potassium 4.1 mmol/L (3.5-5.1); Sodium Level 144 mmol/L (136-145)
== END ==
LOC: OLS.WHLBEN 05:00
PROVIDERS: Visit Provider Family Medicine
DX: I11.0 Hypertensive heart disease with heart failure (principal); I50.9 Heart failure, unspecified
CPT/HCPCS: 36415; 80048; 85027

== ENCOUNTER → 2018-04-17 05:00 | Outpatient (REF) | payer MEDICARE, OTHER, SELFPAY ==
[2018-04-17 08:47] LABS: International Normalized Ratio 1.4; Prothrombin Time (Protime)PT. 17.2 SECONDS (11.7-14.9)
== END ==
LOC: OLS.WHLBEN 05:00
PROVIDERS: Visit Provider Family Medicine
DX: I48.91 Unspecified atrial fibrillation (principal); D68.9 Coagulation defect, unspecified
CPT/HCPCS: 36415; 85610

== ENCOUNTER → 2018-04-25 05:30 | Outpatient (REF) | payer MEDICARE, OTHER, SELFPAY ==
[2018-04-25 08:43] LABS: International Normalized Ratio 1.4; Prothrombin Time (Protime)PT. 17.2 SECONDS (11.7-14.9)
== END ==
LOC: OLS.WHLBEN 05:30
PROVIDERS: Visit Provider Family Medicine
DX: I48.91 Unspecified atrial fibrillation (principal)
CPT/HCPCS: 36415; 85610

== ENCOUNTER → 2018-05-02 05:00 | Outpatient (REF) | payer MEDICARE, OTHER, SELFPAY ==
[2018-05-02 08:13] LABS: International Normalized Ratio 1.8; Prothrombin Time (Protime)PT. 21.1 SECONDS (11.7-14.9)
== END ==
LOC: OLS.WHLBEN 05:00
PROVIDERS: Visit Provider Family Medicine
DX: I48.91 Unspecified atrial fibrillation (principal)
CPT/HCPCS: 36415; 85610

== ENCOUNTER → 2018-05-15 05:00 | Outpatient (REF) | payer MEDICARE, OTHER, SELFPAY ==
[2018-05-15 09:01] LABS: Hematocrit 41.7 % (37-47); Hemoglobin 13.4 g/dl (12.0-15.0); Mean Corp Hgb Conc 32.1 g/gl (32-36); Mean Corpuscular Hgb 30.5 pg (27.0-32.0); Mean Corpuscular Volume 94.8 fL (81-99); Mean Platelet Vol. 10.7 fl (6.2-12.0); Platelet Count 153 K/mm3 (150-450); RBC Distribution Width CV 13.6 % (11.6-14.6); RBC Distribution Width SD 47.3 fl (35.1-43.9)
[2018-05-15 09:03] LABS: Scan Indicated on CBC? Y/N NO
[2018-05-15 09:07] LABS: Anion Gap 6 (5-15); BUN 28 mg/dL (7-18); BUN/Creat Ratio 28.3 RATIO (10-20); Calcium,Total 8.3 mg/dL (8.5-10.1); Chloride 105 mmol/L (98-107); Creatinine, Serum 0.99 mg/dL (0.55-1.02); EST Glomerular Filtration Rate 57 mL/min (>60); Est Glom Filt Rate - Afr Amer 69 mL/min (>60); Glucose 96 mg/dL (74-106); International Normalized Ratio 2.3; Potassium 4.1 mmol/L (3.5-5.1); Prothrombin Time (Protime)PT. 25.2 SECONDS (11.7-14.9); Sodium Level 141 mmol/L (136-145)
== END ==
LOC: OLS.WHLBEN 05:00
PROVIDERS: Visit Provider Family Medicine
DX: I48.91 Unspecified atrial fibrillation (principal); I11.0 Hypertensive heart disease with heart failure; I50.9 Heart failure, unspecified; Z79.01 Long term (current) use of anticoagulants
CPT/HCPCS: 36415; 80048; 85027; 85610

== ENCOUNTER → 2018-05-29 05:00 | Outpatient (REF) | payer MEDICARE, OTHER, SELFPAY ==
[2018-05-29 08:32] LABS: Hematocrit 39.7 % (37-47); Hemoglobin 12.6 g/dl (12.0-15.0); Mean Corp Hgb Conc 31.7 g/gl (32-36); Mean Corpuscular Hgb 29.9 pg (27.0-32.0); Mean Corpuscular Volume 94.1 fL (81-99); Mean Platelet Vol. 10.8 fl (6.2-12.0); Platelet Count 160 K/mm3 (150-450); RBC Distribution Width CV 13.6 % (11.6-14.6); RBC Distribution Width SD 46.4 fl (35.1-43.9); Red Blood Count 4.22 M/mm3 (4.2-5.4); White Blood Count 4.2 K/mm3 (4.4-11.0)
[2018-05-29 08:39] LABS: Anion Gap 6 (5-15); BUN 22 mg/dL (7-18); BUN/Creat Ratio 29.7 RATIO (10-20); Chloride 105 mmol/L (98-107); Creatinine, Serum 0.74 mg/dL (0.55-1.02); EST Glomerular Filtration Rate 80 mL/min (>60); Est Glom Filt Rate - Afr Amer 96 mL/min (>60); Glucose 91 mg/dL (74-106); International Normalized Ratio 2.4; Potassium 3.6 mmol/L (3.5-5.1); Sodium Level 141 mmol/L (136-145)
[2018-05-29 08:44] LABS: Scan Indicated on CBC? Y/N NO
== END ==
LOC: OLS.WHLBEN 05:00
PROVIDERS: Visit Provider Family Medicine
DX: I48.91 Unspecified atrial fibrillation (principal)
CPT/HCPCS: 36415; 80048; 85027; 85610

== ENCOUNTER → 2018-06-12 05:00 | Outpatient (REF) | payer MEDICARE, OTHER, SELFPAY ==
[2018-06-12 08:11] LABS: International Normalized Ratio 1.9; Prothrombin Time (Protime)PT. 21.4 SECONDS (11.7-14.9)
== END ==
LOC: OLS.WHLBEN 05:00
PROVIDERS: Visit Provider Family Medicine
DX: I48.91 Unspecified atrial fibrillation (principal)
CPT/HCPCS: 36415; 85610

== ENCOUNTER → 2018-06-26 05:00 | Outpatient (REF) | payer MEDICARE, OTHER, SELFPAY ==
[2018-06-18 10:58] VITALS: BMI 28.7
[2018-06-26 07:37] LABS: Hematocrit 41.1 % (37-47); Hemoglobin 13.2 g/dl (12.0-15.0); Mean Corp Hgb Conc 32.1 g/gl (32-36); Mean Corpuscular Hgb 29.9 pg (27.0-32.0); Mean Platelet Vol. 10.9 fl (6.2-12.0); Platelet Count 159 K/mm3 (150-450); RBC Distribution Width CV 13.7 % (11.6-14.6); RBC Distribution Width SD 46.4 fl (35.1-43.9); Red Blood Count 4.42 M/mm3 (4.2-5.4); White Blood Count 4.8 K/mm3 (4.4-11.0)
[2018-06-26 07:42] LABS: International Normalized Ratio 2.1; Prothrombin Time (Protime)PT. 23.8 SECONDS (11.7-14.9)
[2018-06-26 07:45] LABS: Scan Indicated on CBC? Y/N NO
[2018-06-26 08:08] LABS: Anion Gap 6 (5-15); BUN 29 mg/dL (7-18); BUN/Creat Ratio 29.9 RATIO (10-20); Chloride 107 mmol/L (98-107); Cholesterol 150 mg/dL (200); Creatinine, Serum 0.97 mg/dL (0.55-1.02); EST Glomerular Filtration Rate 58 mL/min (>60); Est Glom Filt Rate - Afr Amer 71 mL/min (>60); Glucose 90 mg/dL (74-106); High Density Lipoprotein 74 mg/dL; Potassium 4.3 mmol/L (3.5-5.1); Sodium Level 141 mmol/L (136-145); Thyroid Stim Hormone (TSH) 4.46 uIU/mL (0.358-3.74); Triglycerides 51 mg/dL; Very Low Density Lipoprotein 10 mg/dL (5-40)
[2018-06-26 08:18] LABS: Hemoglobin A1c 6.3 % (4.2-6.3)
== END ==
LOC: OLS.WHLBEN 05:00
PROVIDERS: Visit Provider Family Medicine
DX: I48.91 Unspecified atrial fibrillation (principal)
CPT/HCPCS: 36415; 80048; 80061; 83036; 84443; 85027; 85610

== ENCOUNTER → 2018-07-10 07:05 | Outpatient (REF) | payer MEDICARE, OTHER, SELFPAY ==
[2018-06-18 10:58] VITALS: BMI 28.7
[2018-07-10 08:09] LABS: Prothrombin Time (Protime)PT. 22.4 SECONDS (11.7-14.9)
== END ==
LOC: OLS.WHLBEN 07:05
PROVIDERS: Visit Provider Family Medicine
DX: I48.91 Unspecified atrial fibrillation (principal)
CPT/HCPCS: 36415; 85610

== ENCOUNTER → 2018-07-24 | Outpatient (REF) | payer MEDICARE, OTHER, SELFPAY ==
[2018-06-18 10:58] VITALS: BMI 28.7
[2018-07-24 08:05] LABS: International Normalized Ratio 2.5; Prothrombin Time (Protime)PT. 27.4 SECONDS (11.7-14.9)
== END | disposition home or self-care (01) ==
LOC: OLS.WHLBEN 05:00
PROVIDERS: Visit Provider Family Medicine
DX: Z79.01 Long term (current) use of anticoagulants (principal)
CPT/HCPCS: 36415; 85610

== ENCOUNTER → 2018-07-31 | Outpatient (REF) | payer MEDICARE, OTHER, SELFPAY ==
[2018-06-18 10:58] VITALS: BMI 28.7
[2018-07-31 07:57] LABS: Hematocrit 43.3 % (37-47); Hemoglobin 14.1 g/dl (12.0-15.0); Mean Corp Hgb Conc 32.6 g/gl (32-36); Mean Corpuscular Volume 92.1 fL (81-99); Mean Platelet Vol. 10.9 fl (6.2-12.0); Platelet Count 146 K/mm3 (150-450); RBC Distribution Width CV 14.7 % (11.6-14.6); RBC Distribution Width SD 49.8 fl (35.1-43.9); White Blood Count 4.7 K/mm3 (4.4-11.0)
[2018-07-31 07:59] LABS: Anion Gap 3 (5-15); BUN 23 mg/dL (7-18); BUN/Creat Ratio 26.1 RATIO (10-20); Calcium,Total 8.1 mg/dL (8.5-10.1); Chloride 107 mmol/L (98-107); Creatinine, Serum 0.88 mg/dL (0.55-1.02); EST Glomerular Filtration Rate 65 mL/min (>60); Est Glom Filt Rate - Afr Amer 79 mL/min (>60); Glucose 95 mg/dL (74-106); Potassium 3.7 mmol/L (3.5-5.1); Sodium Level 141 mmol/L (136-145)
[2018-07-31 08:06] LABS: Scan Indicated on CBC? Y/N NO
== END | disposition home or self-care (01) ==
LOC: OLS.WHLBEN 05:45
PROVIDERS: Visit Provider Family Medicine
DX: I48.91 Unspecified atrial fibrillation (principal); D64.9 Anemia, unspecified; I50.9 Heart failure, unspecified; E78.5 Hyperlipidemia, unspecified; E03.9 Hypothyroidism, unspecified
CPT/HCPCS: 36415; 80048; 85027

== ENCOUNTER → 2018-08-07 | Outpatient (REF) | payer MEDICARE, OTHER, SELFPAY ==
[2018-06-18 10:58] VITALS: BMI 28.7
[2018-08-07 09:25] LABS: International Normalized Ratio 2.3; Prothrombin Time (Protime)PT. 25.7 SECONDS (11.7-14.9)
== END | disposition home or self-care (01) ==
LOC: OLS.WHLBEN 07:48
PROVIDERS: Visit Provider Family Medicine
DX: Z79.01 Long term (current) use of anticoagulants (principal)
CPT/HCPCS: 36415; 85610

== ENCOUNTER → 2018-08-20 05:00 | Outpatient (REF) | payer MEDICARE, OTHER, SELFPAY ==
[2018-06-18 10:58] VITALS: BMI 28.7
[2018-08-20 07:22] LABS: International Normalized Ratio 2.5; Prothrombin Time (Protime)PT. 27.2 SECONDS (11.7-14.9)
== END ==
LOC: OLS.WHLBEN 05:00
PROVIDERS: Visit Provider Family Medicine
DX: I48.91 Unspecified atrial fibrillation (principal); Z79.01 Long term (current) use of anticoagulants
CPT/HCPCS: 36415; 85610

== ENCOUNTER → 2018-08-28 05:00 | Outpatient (REF) | payer MEDICARE, OTHER, SELFPAY ==
[2018-06-18 10:58] VITALS: BMI 28.7
[2018-08-28 08:54] LABS: Anion Gap 7 (5-15); BUN 22 mg/dL (7-18); BUN/Creat Ratio 26.7 RATIO (10-20); Calcium,Total 8.3 mg/dL (8.5-10.1); Chloride 106 mmol/L (98-107); Creatinine, Serum 0.82 mg/dL (0.55-1.02); EST Glomerular Filtration Rate 70 mL/min (>60); Est Glom Filt Rate - Afr Amer 85 mL/min (>60); Glucose 92 mg/dL (74-106); Potassium 3.6 mmol/L (3.5-5.1); Sodium Level 143 mmol/L (136-145)
[2018-08-28 08:59] LABS: Hematocrit 42.8 % (37-47); Hemoglobin 13.7 g/dl (12.0-15.0); Mean Corpuscular Hgb 29.5 pg (27.0-32.0); Mean Platelet Vol. 11.4 fl (6.2-12.0); Platelet Count 145 K/mm3 (150-450); RBC Distribution Width CV 14.9 % (11.6-14.6); RBC Distribution Width SD 49.1 fl (35.1-43.9); Red Blood Count 4.65 M/mm3 (4.2-5.4); White Blood Count 4.8 K/mm3 (4.4-11.0)
[2018-08-28 09:00] LABS: Scan Indicated on CBC? Y/N NO
== END ==
LOC: OLS.WHLBEN 05:00
PROVIDERS: Visit Provider Family Medicine
DX: I48.91 Unspecified atrial fibrillation (principal); I10 Essential (primary) hypertension
CPT/HCPCS: 36415; 80048; 85027

== ENCOUNTER → 2018-09-03 | Outpatient (REF) | payer MEDICARE, OTHER, SELFPAY ==
[2018-06-18 10:58] VITALS: BMI 28.7
[2018-09-03 09:21] LABS: International Normalized Ratio 2.7; Prothrombin Time (Protime)PT. 28.8 SECONDS (11.7-14.9)
== END | disposition home or self-care (01) ==
LOC: OLS.WHLBEN 05:00
PROVIDERS: Visit Provider Family Medicine
DX: Z79.01 Long term (current) use of anticoagulants (principal)
CPT/HCPCS: 36415; 85610

== ENCOUNTER → 2018-09-16 | Outpatient (REF) | payer MEDICARE, OTHER, SELFPAY ==
[2018-06-18 10:58] VITALS: BMI 28.7
[2018-09-16 12:21] LABS: Hematocrit 31.9 % (37-47); Hemoglobin 10.4 g/dL (12.0-15.0); Mean Corp Hgb Conc 32.6 g/dL (32-36); Mean Corpuscular Hgb 31.4 pg (27.0-32.0); Mean Corpuscular Volume 96.4 fL (81-99); Mean Platelet Vol. 9.9 fl (6.2-12.0); Platelet Count 193 K/mm3 (150-450); RBC Distribution Width CV 14.6 % (11.6-14.6); RBC Distribution Width SD 51.3 fl (35.1-43.9); Red Blood Count 3.31 M/mm3 (4.2-5.4); White Blood Count 5.4 K/mm3 (4.4-11.0)
[2018-09-16 12:26] LABS: International Normalized Ratio 3.4; Prothrombin Time (Protime)PT. 34.4 SECONDS (11.7-14.9)
== END | disposition home or self-care (01) ==
LOC: OLS.WHLBEN 11:30
PROVIDERS: Visit Provider Family Medicine
DX: I11.0 Hypertensive heart disease with heart failure (principal); I50.21 Acute systolic (congestive) heart failure; M62.81 Muscle weakness (generalized); F03.90 Unspecified dementia, unspecified severity, without behavioral disturbance, psychotic disturbance, mood disturbance, and anxiety; I48.0 Paroxysmal atrial fibrillation
CPT/HCPCS: 36415; 85027; 85610

== ENCOUNTER → 2018-09-23 05:00 | Outpatient (REF) | payer MEDICARE, OTHER, SELFPAY ==
[2018-06-18 10:58] VITALS: BMI 28.7
== END ==
LOC: OLS.WHLBEN 05:00
PROVIDERS: Visit Provider Family Medicine
DX: I11.0 Hypertensive heart disease with heart failure (principal); I50.21 Acute systolic (congestive) heart failure; M62.81 Muscle weakness (generalized); F03.90 Unspecified dementia, unspecified severity, without behavioral disturbance, psychotic disturbance, mood disturbance, and anxiety; I48.0 Paroxysmal atrial fibrillation
CPT/HCPCS: 36416; 85610

== ENCOUNTER → 2018-09-25 05:00 | Outpatient (REF) | payer MEDICARE, OTHER, SELFPAY ==
[2018-06-18 10:58] VITALS: BMI 28.7
[2018-09-25 08:00] LABS: Hemoglobin 11.6 g/dL (12.0-15.0); Mean Corp Hgb Conc 32.2 g/dL (32-36); Mean Corpuscular Volume 99.2 fL (81-99); Mean Platelet Vol. 10.2 fl (6.2-12.0); Platelet Count 199 K/mm3 (150-450); RBC Distribution Width CV 15.6 % (11.6-14.6); RBC Distribution Width SD 56.2 fl (35.1-43.9); Red Blood Count 3.63 M/mm3 (4.2-5.4); White Blood Count 5.1 K/mm3 (4.4-11.0)
[2018-09-25 08:06] LABS: Anion Gap 4 (5-15); BUN 29 mg/dL (7-18); BUN/Creat Ratio 34.2 RATIO (10-20); Calcium,Total 7.6 mg/dL (8.5-10.1); Chloride 103 mmol/L (98-107); Creatinine, Serum 0.85 mg/dL (0.55-1.02); EST Glomerular Filtration Rate 68 mL/min (>60); Est Glom Filt Rate - Afr Amer 82 mL/min (>60); Glucose 96 mg/dL (74-106); Potassium 3.6 mmol/L (3.5-5.1); Sodium Level 140 mmol/L (136-145)
== END ==
LOC: OLS.WHLBEN 05:00
PROVIDERS: Visit Provider Family Medicine
DX: I11.0 Hypertensive heart disease with heart failure (principal); I50.21 Acute systolic (congestive) heart failure; M62.81 Muscle weakness (generalized); F03.90 Unspecified dementia, unspecified severity, without behavioral disturbance, psychotic disturbance, mood disturbance, and anxiety; I48.0 Paroxysmal atrial fibrillation
CPT/HCPCS: 36415; 80048; 85027

== ENCOUNTER → 2018-09-30 05:00 | Outpatient (REF) | payer MEDICARE, OTHER, SELFPAY ==
[2018-06-18 10:58] VITALS: BMI 28.7
[2018-09-30 08:39] LABS: Prothrombin Time Fingerstick 21.7 SEC (11.9-14.4)
== END ==
LOC: OLS.WHLBEN 05:00
PROVIDERS: Visit Provider Family Medicine
DX: I11.0 Hypertensive heart disease with heart failure (principal); I50.21 Acute systolic (congestive) heart failure; M26.81 Anterior soft tissue impingement; F03.90 Unspecified dementia, unspecified severity, without behavioral disturbance, psychotic disturbance, mood disturbance, and anxiety; I48.0 Paroxysmal atrial fibrillation
CPT/HCPCS: 36416; 85610

== ENCOUNTER → 2018-10-14 05:00 | Outpatient (REF) | payer MEDICARE, OTHER, SELFPAY ==
[2018-06-18 10:58] VITALS: BMI 28.7
[2018-10-14 11:33] LABS: Prothrombin Time Fingerstick 18.5 SEC (11.9-14.4)
== END ==
LOC: OLS.WHLBEN 05:00
PROVIDERS: Visit Provider Family Medicine
DX: I11.0 Hypertensive heart disease with heart failure (principal); I50.21 Acute systolic (congestive) heart failure; M62.81 Muscle weakness (generalized); F03.90 Unspecified dementia, unspecified severity, without behavioral disturbance, psychotic disturbance, mood disturbance, and anxiety; I48.0 Paroxysmal atrial fibrillation
CPT/HCPCS: 36416; 85610

== ENCOUNTER → 2018-10-30 05:00 | Outpatient (REF) | payer MEDICARE, OTHER, SELFPAY ==
[2018-06-18 10:58] VITALS: BMI 28.7
[2018-10-30 07:49] LABS: Hematocrit 43.1 % (37-47); Hemoglobin 13.6 g/dL (12.0-15.0); Mean Corp Hgb Conc 31.6 g/dL (32-36); Mean Corpuscular Hgb 31.2 pg (27.0-32.0); Mean Corpuscular Volume 98.9 fL (81-99); Mean Platelet Vol. 11.1 fl (6.2-12.0); Platelet Count 168 K/mm3 (150-450); RBC Distribution Width CV 13.3 % (11.6-14.6); RBC Distribution Width SD 49.3 fl (35.1-43.9); Red Blood Count 4.36 M/mm3 (4.2-5.4); White Blood Count 4.2 K/mm3 (4.4-11.0)
[2018-10-30 08:16] LABS: Anion Gap 4 (5-15); BUN 29 mg/dL (7-18); BUN/Creat Ratio 31.8 RATIO (10-20); Calcium,Total 8.4 mg/dL (8.5-10.1); Chloride 106 mmol/L (98-107); Creatinine, Serum 0.91 mg/dL (0.55-1.02); EST Glomerular Filtration Rate 63 mL/min (>60); Est Glom Filt Rate - Afr Amer 76 mL/min (>60); Glucose 86 mg/dL (74-106); Potassium 3.9 mmol/L (3.5-5.1); Sodium Level 141 mmol/L (136-145)
== END ==
LOC: OLS.WHLBEN 05:00
PROVIDERS: Visit Provider Family Medicine
DX: I11.0 Hypertensive heart disease with heart failure (principal); I50.21 Acute systolic (congestive) heart failure; M62.81 Muscle weakness (generalized); F03.90 Unspecified dementia, unspecified severity, without behavioral disturbance, psychotic disturbance, mood disturbance, and anxiety; I48.0 Paroxysmal atrial fibrillation
CPT/HCPCS: 36415; 80048; 85027

== ENCOUNTER → 2018-11-24 | Outpatient (REF) | payer MEDICARE, OTHER, SELFPAY ==
[2018-06-18 10:58] VITALS: BMI 28.7
[2018-11-24 10:50] LABS: Prothrombin Time Fingerstick 31.1 SEC (11.9-14.4)
== END | disposition home or self-care (01) ==
LOC: OLS.WHLBEN 05:00
PROVIDERS: Visit Provider Family Medicine
DX: I48.0 Paroxysmal atrial fibrillation (principal)
CPT/HCPCS: 36416; 85610

== ENCOUNTER → 2018-12-25 05:00 | Outpatient (REF) | payer MEDICARE, OTHER, SELFPAY ==
[2018-06-18 10:58] VITALS: BMI 28.7
[2018-12-25 10:06] LABS: Prothrombin Time Fingerstick 21.7 SEC (11.9-14.4)
== END ==
LOC: OLS.WHLBEN 05:00
PROVIDERS: Visit Provider Family Medicine
DX: I11.0 Hypertensive heart disease with heart failure (principal); I50.21 Acute systolic (congestive) heart failure; M62.81 Muscle weakness (generalized); F03.90 Unspecified dementia, unspecified severity, without behavioral disturbance, psychotic disturbance, mood disturbance, and anxiety; I48.0 Paroxysmal atrial fibrillation
CPT/HCPCS: 36416; 85610

== ENCOUNTER → 2019-01-01 05:00 | Outpatient (REF) | payer MEDICARE, OTHER, SELFPAY ==
[2018-06-18 10:58] VITALS: BMI 28.7
[2019-01-01 08:13] LABS: Hematocrit 44.3 % (37-47); Hemoglobin 14.3 g/dL (12.0-15.0); Mean Corp Hgb Conc 32.3 g/dL (32-36); Mean Corpuscular Hgb 30.6 pg (27.0-32.0); Mean Corpuscular Volume 94.9 fL (81-99); Mean Platelet Vol. 11.4 fl (6.2-12.0); Platelet Count 150 K/mm3 (150-450); RBC Distribution Width CV 12.8 % (11.6-14.6); RBC Distribution Width SD 44.6 fl (35.1-43.9); Red Blood Count 4.67 M/mm3 (4.2-5.4); White Blood Count 4.6 K/mm3 (4.4-11.0)
[2019-01-01 08:41] LABS: Anion Gap 6 (5-15); BUN 26 mg/dL (7-18); BUN/Creat Ratio 29.8 RATIO (10-20); Calcium,Total 8.3 mg/dL (8.5-10.1); Chloride 102 mmol/L (98-107); Cholesterol 156 mg/dL (200); Creatinine, Serum 0.87 mg/dL (0.55-1.02); EST Glomerular Filtration Rate 66 mL/min (>60); Est Glom Filt Rate - Afr Amer 80 mL/min (>60); Glucose 99 mg/dL (74-106); High Density Lipoprotein 76 mg/dL; Potassium 3.7 mmol/L (3.5-5.1); Sodium Level 139 mmol/L (136-145); Thyroid Stim Hormone (TSH) 1.49 uIU/mL (0.358-3.74); Triglycerides 60 mg/dL; Very Low Density Lipoprotein 12 mg/dL (5-40)
[2019-01-01 08:46] LABS: Hemoglobin A1c 5.9 % (4.2-6.3)
== END ==
LOC: OLS.WHLBEN 05:00
PROVIDERS: Visit Provider Family Medicine
DX: I11.0 Hypertensive heart disease with heart failure (principal); I50.21 Acute systolic (congestive) heart failure; M62.81 Muscle weakness (generalized); F03.90 Unspecified dementia, unspecified severity, without behavioral disturbance, psychotic disturbance, mood disturbance, and anxiety; E03.9 Hypothyroidism, unspecified; R73.01 Impaired fasting glucose
CPT/HCPCS: 36415; 80048; 80061; 83036; 84443; 85027

== ENCOUNTER → 2019-01-22 05:00 | Outpatient (REF) | payer MEDICARE, OTHER, SELFPAY ==
[2018-06-18 10:58] VITALS: BMI 28.7
[2019-01-22 07:15] LABS: Prothrombin Time Fingerstick 20.6 SEC (11.9-14.4)
== END ==
LOC: OLS.WHLBEN 05:00
PROVIDERS: Visit Provider Family Medicine
DX: I50.21 Acute systolic (congestive) heart failure (principal); M62.81 Muscle weakness (generalized); F03.90 Unspecified dementia, unspecified severity, without behavioral disturbance, psychotic disturbance, mood disturbance, and anxiety; I48.0 Paroxysmal atrial fibrillation
CPT/HCPCS: 36416; 85610

== ENCOUNTER → 2019-01-29 05:00 | Outpatient (REF) | payer MEDICARE, OTHER, SELFPAY ==
[2018-06-18 10:58] VITALS: BMI 28.7
[2019-01-29 07:30] LABS: Hematocrit 41.7 % (37-47); Hemoglobin 13.4 g/dL (12.0-15.0); Mean Corp Hgb Conc 32.1 g/dL (32-36); Mean Corpuscular Hgb 30.5 pg (27.0-32.0); Mean Platelet Vol. 10.8 fl (6.2-12.0); Platelet Count 132 K/mm3 (150-450); RBC Distribution Width CV 13.5 % (11.6-14.6); RBC Distribution Width SD 47.4 fl (35.1-43.9); Red Blood Count 4.39 M/mm3 (4.2-5.4); White Blood Count 4.1 K/mm3 (4.4-11.0)
[2019-01-29 07:54] LABS: Anion Gap 2 (5-15); BUN 25 mg/dL (7-18); BUN/Creat Ratio 26.8 RATIO (10-20); Chloride 107 mmol/L (98-107); Creatinine, Serum 0.93 mg/dL (0.55-1.02); EST Glomerular Filtration Rate 61 mL/min (>60); Est Glom Filt Rate - Afr Amer 74 mL/min (>60); Glucose 91 mg/dL (74-106); Potassium 3.8 mmol/L (3.5-5.1); Sodium Level 143 mmol/L (136-145)
== END ==
LOC: OLS.WHLBEN 05:00
PROVIDERS: Visit Provider Family Medicine
DX: I11.0 Hypertensive heart disease with heart failure (principal); I50.20 Unspecified systolic (congestive) heart failure; M62.81 Muscle weakness (generalized); F03.90 Unspecified dementia, unspecified severity, without behavioral disturbance, psychotic disturbance, mood disturbance, and anxiety; I48.0 Paroxysmal atrial fibrillation
CPT/HCPCS: 36415; 80048; 85027

== ENCOUNTER → 2019-02-19 05:00 | Outpatient (REF) | payer MEDICARE, OTHER, SELFPAY ==
[2018-06-18 10:58] VITALS: BMI 28.7
[2019-02-19 06:49] LABS: Hematocrit 42.3 % (37-47); Hemoglobin 13.5 g/dL (12.0-15.0); Mean Corp Hgb Conc 31.9 g/dL (32-36); Mean Corpuscular Hgb 30.1 pg (27.0-32.0); Mean Corpuscular Volume 94.4 fL (81-99); Mean Platelet Vol. 10.9 fl (6.2-12.0); Platelet Count 156 K/mm3 (150-450); RBC Distribution Width CV 14.2 % (11.6-14.6); RBC Distribution Width SD 49.2 fl (35.1-43.9); Red Blood Count 4.48 M/mm3 (4.2-5.4); White Blood Count 4.7 K/mm3 (4.4-11.0)
[2019-02-19 06:58] LABS: International Normalized Ratio 1.5; Prothrombin Time (Protime)PT. 17.7 SECONDS (11.7-14.9)
[2019-02-19 07:16] LABS: Anion Gap 6 (5-15); BUN 27 mg/dL (7-18); BUN/Creat Ratio 28.6 RATIO (10-20); Calcium,Total 8.6 mg/dL (8.5-10.1); Chloride 108 mmol/L (98-107); Creatinine, Serum 0.94 mg/dL (0.55-1.02); EST Glomerular Filtration Rate 60 mL/min (>60); Est Glom Filt Rate - Afr Amer 73 mL/min (>60); Glucose 104 mg/dL (74-106); Potassium 3.7 mmol/L (3.5-5.1); Sodium Level 143 mmol/L (136-145)
[2019-02-25 11:37] VITALS: BMI 26.2
== END ==
LOC: OLS.WHLBEN 05:00
PROVIDERS: Family Provider Family Medicine; PCP Family Medicine; Visit Provider Family Medicine
DX: I48.0 Paroxysmal atrial fibrillation (principal); I11.0 Hypertensive heart disease with heart failure; I50.21 Acute systolic (congestive) heart failure; M62.81 Muscle weakness (generalized); F03.90 Unspecified dementia, unspecified severity, without behavioral disturbance, psychotic disturbance, mood disturbance, and anxiety
CPT/HCPCS: 36415; 80048; 85027; 85610

== ENCOUNTER → 2019-03-26 05:00 | Outpatient (REF) | payer MEDICARE, OTHER, SELFPAY ==
[2019-02-25 11:37] VITALS: BMI 26.2
[2019-03-26 08:04] LABS: Hematocrit 43.9 % (37-47); Mean Corp Hgb Conc 31.9 g/dL (32-36); Mean Corpuscular Hgb 30.2 pg (27.0-32.0); Mean Corpuscular Volume 94.8 fL (81-99); Mean Platelet Vol. 11.3 fl (6.2-12.0); Platelet Count 158 K/mm3 (150-450); RBC Distribution Width CV 13.7 % (11.6-14.6); Red Blood Count 4.63 M/mm3 (4.2-5.4); White Blood Count 4.5 K/mm3 (4.4-11.0)
[2019-03-26 08:18] LABS: Anion Gap 3 (5-15); BUN 27 mg/dL (7-18); BUN/Creat Ratio 25.2 RATIO (10-20); Calcium,Total 8.6 mg/dL (8.5-10.1); Chloride 107 mmol/L (98-107); Creatinine, Serum 1.07 mg/dL (0.55-1.02); EST Glomerular Filtration Rate 52 mL/min (>60); Est Glom Filt Rate - Afr Amer 63 mL/min (>60); Glucose 98 mg/dL (74-106); Potassium 3.8 mmol/L (3.5-5.1); Sodium Level 142 mmol/L (136-145)
[2019-03-26 08:29] LABS: International Normalized Ratio 1.9; Prothrombin Time (Protime)PT. 21.9 SECONDS (11.7-14.9)
== END ==
LOC: OLS.WHLBEN 05:00
PROVIDERS: PCP Family Medicine; Visit Provider Family Medicine
DX: I12.9 Hypertensive chronic kidney disease with stage 1 through stage 4 chronic kidney disease, or unspecified chronic kidney disease (principal); I50.21 Acute systolic (congestive) heart failure; M62.81 Muscle weakness (generalized); F03.90 Unspecified dementia, unspecified severity, without behavioral disturbance, psychotic disturbance, mood disturbance, and anxiety; I48.0 Paroxysmal atrial fibrillation
CPT/HCPCS: 36415; 80048; 85027; 85610

== ENCOUNTER → 2019-04-08 05:00 | Outpatient (REF) | payer MEDICARE, OTHER, SELFPAY ==
[2019-02-25 11:37] VITALS: BMI 26.2
[2019-04-08 08:33] LABS: Absolute Lymphocyte Count 0.75 X10^3/uL (0.83-4.51); Absolute Neutrophil Count 5.3 X10^3/uL (2.0-7.7); Basophil# 0.01 X10^3/uL; Basophil% 0.1 % (0-1); Eosinophil# 0.01 X10^3/uL; Eosinophils% 0.1 % (0-5); Hematocrit 41.9 % (37-47); Hemoglobin 14.1 g/dL (12.0-15.0); Lymphocyte # 0.75 X10^3/ul (4.0); Lymphocyte % 10.7 % (19-41); Mean Corp Hgb Conc 33.7 g/dL (32-36); Mean Corpuscular Hgb 31.8 pg (27.0-32.0); Mean Corpuscular Volume 94.4 fL (81-99); Mean Platelet Vol. 11.6 fl (6.2-12.0); Monocyte# 0.88 X10^3/uL; Monocyte% 12.6 % (0-10); NRBC Flagged by Analyzer 0 % (0-5); Neutrophil # 5.31 X10^3/uL (2.7-7.7); Neutrophil % 76.2 % (47-70); Platelet Count 118 K/mm3 (150-450); RBC Distribution Width CV 13.6 % (11.6-14.6); RBC Distribution Width SD 47.3 fl (35.1-43.9); Red Blood Count 4.44 M/mm3 (4.2-5.4)
[2019-04-08 08:58] LABS: Anion Gap 4 (5-15); BUN 29 mg/dL (7-18); BUN/Creat Ratio 30.3 RATIO (10-20); Calcium,Total 7.9 mg/dL (8.5-10.1); Chloride 106 mmol/L (98-107); Creatinine, Serum 0.96 mg/dL (0.55-1.02); EST Glomerular Filtration Rate 59 mL/min (>60); Est Glom Filt Rate - Afr Amer 72 mL/min (>60); Glucose 92 mg/dL (74-106); Potassium 3.1 mmol/L (3.5-5.1); Sodium Level 140 mmol/L (136-145); Thyroid Stim Hormone (TSH) 1.11 uIU/mL (0.358-3.74)
== END ==
LOC: OLS.WHLBEN 05:00
PROVIDERS: PCP Family Medicine; Visit Provider Family Medicine
DX: I11.0 Hypertensive heart disease with heart failure (principal); I50.21 Acute systolic (congestive) heart failure; M62.81 Muscle weakness (generalized); F03.90 Unspecified dementia, unspecified severity, without behavioral disturbance, psychotic disturbance, mood disturbance, and anxiety; I48.0 Paroxysmal atrial fibrillation
CPT/HCPCS: 36415; 80048; 84443; 85025

== ENCOUNTER → 2019-04-23 05:00 | Outpatient (REF) | payer MEDICARE, OTHER, SELFPAY ==
[2019-02-25 11:37] VITALS: BMI 26.2
[2019-04-23 08:38] LABS: Hematocrit 41.2 % (37-47); Hemoglobin 13.1 g/dL (12.0-15.0); Mean Corp Hgb Conc 31.8 g/dL (32-36); Mean Corpuscular Hgb 30.4 pg (27.0-32.0); Mean Corpuscular Volume 95.6 fL (81-99); Platelet Count 175 K/mm3 (150-450); RBC Distribution Width CV 13.4 % (11.6-14.6); RBC Distribution Width SD 47.4 fl (35.1-43.9); Red Blood Count 4.31 M/mm3 (4.2-5.4); White Blood Count 4.8 K/mm3 (4.4-11.0)
[2019-04-23 08:50] LABS: Anion Gap 2 (5-15); BUN 26 mg/dL (7-18); BUN/Creat Ratio 29.7 RATIO (10-20); Calcium,Total 8.1 mg/dL (8.5-10.1); Chloride 106 mmol/L (98-107); Creatinine, Serum 0.88 mg/dL (0.55-1.02); EST Glomerular Filtration Rate 65 mL/min (>60); Est Glom Filt Rate - Afr Amer 79 mL/min (>60); Glucose 97 mg/dL (74-106); Potassium 3.8 mmol/L (3.5-5.1); Sodium Level 142 mmol/L (136-145)
[2019-04-23 08:58] LABS: Prothrombin Time (Protime)PT. 31.1 SECONDS (11.7-14.9)
== END ==
LOC: OLS.WHLBEN 05:00
PROVIDERS: PCP Family Medicine; Visit Provider Family Medicine
DX: I11.0 Hypertensive heart disease with heart failure (principal); I50.31 Acute diastolic (congestive) heart failure; I48.0 Paroxysmal atrial fibrillation; M62.81 Muscle weakness (generalized); F03.90 Unspecified dementia, unspecified severity, without behavioral disturbance, psychotic disturbance, mood disturbance, and anxiety
CPT/HCPCS: 36415; 80048; 85027; 85610

== ENCOUNTER → 2019-06-18 06:00 | Outpatient (REF) | payer MEDICARE, OTHER, SELFPAY ==
[2019-02-25 11:37] VITALS: BMI 26.2
[2019-06-18 08:26] LABS: Prothrombin Time Fingerstick 28.1 SEC (11.9-14.4)
== END ==
LOC: OLS.WHLBEN 06:00
PROVIDERS: PCP Family Medicine; Visit Provider Family Medicine
DX: I48.0 Paroxysmal atrial fibrillation (principal); I50.21 Acute systolic (congestive) heart failure; M62.81 Muscle weakness (generalized); F03.90 Unspecified dementia, unspecified severity, without behavioral disturbance, psychotic disturbance, mood disturbance, and anxiety; I11.9 Hypertensive heart disease without heart failure
CPT/HCPCS: 36416; 85610

== ENCOUNTER → 2019-07-23 05:00 | Outpatient (REF) | payer MEDICARE, OTHER, SELFPAY ==
[2019-02-25 11:37] VITALS: BMI 26.2
[2019-07-23 08:22] LABS: Hematocrit 42.2 % (37-47); Hemoglobin 13.5 g/dL (12.0-15.0); Mean Corpuscular Hgb 31.2 pg (27.0-32.0); Mean Corpuscular Volume 97.5 fL (81-99); Mean Platelet Vol. 11.4 fl (6.2-12.0); Platelet Count 148 K/mm3 (150-450); RBC Distribution Width CV 13.4 % (11.6-14.6); RBC Distribution Width SD 47.9 fl (35.1-43.9); Red Blood Count 4.33 M/mm3 (4.2-5.4); White Blood Count 4.2 K/mm3 (4.4-11.0)
[2019-07-23 08:34] LABS: International Normalized Ratio 2.2; Prothrombin Time (Protime)PT. 23.6 SECONDS (11.7-14.9)
[2019-07-23 08:44] LABS: Anion Gap 4 (5-15); BUN 26 mg/dL (7-18); BUN/Creat Ratio 27.5 RATIO (10-20); Calcium,Total 8.5 mg/dL (8.5-10.1); Chloride 106 mmol/L (98-107); Cholesterol 173 mg/dL (200); Creatinine, Serum 0.94 mg/dL (0.55-1.02); EST Glomerular Filtration Rate 60 mL/min (>60); Est Glom Filt Rate - Afr Amer 72 mL/min (>60); Glucose 94 mg/dL (74-106); High Density Lipoprotein 93 mg/dL; Potassium 3.9 mmol/L (3.5-5.1); Sodium Level 143 mmol/L (136-145); Thyroid Stim Hormone (TSH) 3.28 uIU/mL (0.358-3.74); Triglycerides 49 mg/dL; Very Low Density Lipoprotein 10 mg/dL (5-40)
[2019-07-23 08:46] LABS: Hemoglobin A1c 5.6 % (3.8-5.6)
== END ==
LOC: OLS.WHLBEN 05:00
PROVIDERS: PCP Family Medicine; Visit Provider Family Medicine
DX: I11.0 Hypertensive heart disease with heart failure (principal); F03.90 Unspecified dementia, unspecified severity, without behavioral disturbance, psychotic disturbance, mood disturbance, and anxiety; I48.0 Paroxysmal atrial fibrillation; I50.21 Acute systolic (congestive) heart failure; M62.81 Muscle weakness (generalized); E78.5 Hyperlipidemia, unspecified; Z79.899 Other long term (current) drug therapy
CPT/HCPCS: 36415; 80048; 80061; 83036; 84443; 85027; 85610

== ENCOUNTER → 2019-08-20 05:00 | Outpatient (REF) | payer MEDICARE, OTHER, SELFPAY ==
[2019-02-25 11:37] VITALS: BMI 26.2
[2019-08-20 08:38] LABS: Hematocrit 41.7 % (37-47); Hemoglobin 13.3 g/dL (12.0-15.0); Mean Corp Hgb Conc 31.9 g/dL (32-36); Mean Corpuscular Hgb 31.3 pg (27.0-32.0); Mean Corpuscular Volume 98.1 fL (81-99); Platelet Count 131 K/mm3 (150-450); RBC Distribution Width CV 13.7 % (11.6-14.6); RBC Distribution Width SD 49.1 fl (35.1-43.9); Red Blood Count 4.25 M/mm3 (4.2-5.4); White Blood Count 4.1 K/mm3 (4.4-11.0)
[2019-08-20 08:54] LABS: Anion Gap 6 (5-15); BUN 30 mg/dL (7-18); BUN/Creat Ratio 33.1 RATIO (10-20); Calcium,Total 8.3 mg/dL (8.5-10.1); Chloride 103 mmol/L (98-107); Creatinine, Serum 0.91 mg/dL (0.55-1.02); EST Glomerular Filtration Rate 63 mL/min (>60); Est Glom Filt Rate - Afr Amer 76 mL/min (>60); Glucose 97 mg/dL (74-106); Sodium Level 141 mmol/L (136-145)
[2019-08-20 09:04] LABS: International Normalized Ratio 2.1; Prothrombin Time (Protime)PT. 23.1 SECONDS (11.7-14.9)
== END ==
LOC: OLS.WHLBEN 05:00
PROVIDERS: PCP Family Medicine; Referring Provider Family Medicine; Visit Provider Family Medicine
DX: I11.0 Hypertensive heart disease with heart failure (principal); I50.21 Acute systolic (congestive) heart failure; M62.81 Muscle weakness (generalized); F03.90 Unspecified dementia, unspecified severity, without behavioral disturbance, psychotic disturbance, mood disturbance, and anxiety; I48.0 Paroxysmal atrial fibrillation; E78.5 Hyperlipidemia, unspecified
CPT/HCPCS: 36415; 80048; 85027; 85610

== ENCOUNTER → 2019-09-24 05:00 | Outpatient (REF) | payer MEDICARE, OTHER, SELFPAY ==
[2019-02-25 11:37] VITALS: BMI 26.2
[2019-09-24 06:56] LABS: Prothrombin Time Fingerstick 20.5 SEC (11.9-14.4)
== END ==
LOC: OLS.WHLBEN 05:00
PROVIDERS: PCP Family Medicine; Referring Provider Family Medicine; Visit Provider Family Medicine
DX: I11.0 Hypertensive heart disease with heart failure (principal); I50.21 Acute systolic (congestive) heart failure; M62.81 Muscle weakness (generalized); F03.90 Unspecified dementia, unspecified severity, without behavioral disturbance, psychotic disturbance, mood disturbance, and anxiety; I48.0 Paroxysmal atrial fibrillation; E78.5 Hyperlipidemia, unspecified
CPT/HCPCS: 36416; 85610

== ENCOUNTER → 2019-10-21 04:51 | Outpatient (REF) | payer MEDICARE, OTHER, SELFPAY ==
[2019-02-25 11:37] VITALS: BMI 26.2
[2019-10-21 07:41] LABS: Hematocrit 40.6 % (37-47); Hemoglobin 13.3 g/dL (12.0-15.0); Mean Corp Hgb Conc 32.8 g/dL (32-36); Mean Corpuscular Hgb 31.7 pg (27.0-32.0); Mean Corpuscular Volume 96.9 fL (81-99); Mean Platelet Vol. 11.1 fl (6.2-12.0); Platelet Count 129 K/mm3 (150-450); RBC Distribution Width CV 13.4 % (11.6-14.6); RBC Distribution Width SD 48.1 fl (35.1-43.9); Red Blood Count 4.19 M/mm3 (4.2-5.4)
[2019-10-21 08:01] LABS: Anion Gap 3 (5-15); BUN 28 mg/dL (7-18); BUN/Creat Ratio 28.2 RATIO (10-20); Calcium,Total 8.3 mg/dL (8.5-10.1); Chloride 105 mmol/L (98-107); Creatinine, Serum 0.99 mg/dL (0.55-1.02); EST Glomerular Filtration Rate 57 mL/min (>60); Est Glom Filt Rate - Afr Amer 68 mL/min (>60); Glucose 90 mg/dL (74-106); Potassium 3.7 mmol/L (3.5-5.1); Sodium Level 141 mmol/L (136-145)
== END ==
LOC: OLS.WHLBEN 04:51
PROVIDERS: PCP Family Medicine; Referring Provider Family Medicine; Visit Provider Family Medicine
DX: I11.0 Hypertensive heart disease with heart failure (principal); I50.21 Acute systolic (congestive) heart failure; M62.81 Muscle weakness (generalized); F03.90 Unspecified dementia, unspecified severity, without behavioral disturbance, psychotic disturbance, mood disturbance, and anxiety; I48.0 Paroxysmal atrial fibrillation
CPT/HCPCS: 36415; 80048; 85027

== ENCOUNTER → 2019-10-22 04:30 | Outpatient (REF) | payer MEDICARE, OTHER, SELFPAY ==
[2019-02-25 11:37] VITALS: BMI 26.2
[2019-10-22 07:06] LABS: Prothrombin Time Fingerstick 21.2 SEC (11.9-14.4)
== END ==
LOC: OLS.WHLBEN 04:30
PROVIDERS: PCP Family Medicine; Referring Provider Family Medicine; Visit Provider Family Medicine
DX: I13.0 Hypertensive heart and chronic kidney disease with heart failure and stage 1 through stage 4 chronic kidney disease, or unspecified chronic kidney disease (principal); I50.21 Acute systolic (congestive) heart failure; M62.81 Muscle weakness (generalized); F03.90 Unspecified dementia, unspecified severity, without behavioral disturbance, psychotic disturbance, mood disturbance, and anxiety; I48.0 Paroxysmal atrial fibrillation; E78.5 Hyperlipidemia, unspecified
CPT/HCPCS: 36416; 85610

== ENCOUNTER → 2019-11-25 05:00 | Outpatient (REF) | payer MEDICARE, OTHER, SELFPAY ==
[2019-02-25 11:37] VITALS: BMI 26.2
[2019-11-25 07:26] LABS: Prothrombin Time Fingerstick 20.2 SEC (11.9-14.4)
== END ==
LOC: OLS.WHLBEN 05:00
PROVIDERS: PCP Family Medicine; Referring Provider Family Medicine; Visit Provider Family Medicine
DX: E78.5 Hyperlipidemia, unspecified (principal); I48.91 Unspecified atrial fibrillation
CPT/HCPCS: 36416; 85610

== ENCOUNTER → 2019-12-23 05:00 | Outpatient (REF) | payer MEDICARE, OTHER, SELFPAY ==
[2019-02-25 11:37] VITALS: BMI 26.2
[2019-12-23 07:10] LABS: Prothrombin Time Fingerstick 22.8 SEC (11.9-14.4)
== END ==
LOC: OLS.WHLBEN 05:00
PROVIDERS: PCP Family Medicine; Referring Provider Family Medicine; Visit Provider Family Medicine
DX: E78.5 Hyperlipidemia, unspecified (principal); I48.91 Unspecified atrial fibrillation
CPT/HCPCS: 36416; 85610

== ENCOUNTER → 2020-01-20 05:00 | Outpatient (REF) | payer MEDICARE, OTHER, SELFPAY ==
[2019-02-25 11:37] VITALS: BMI 26.2
[2020-01-20 07:18] LABS: Hematocrit 45.3 % (37-47); Mean Corp Hgb Conc 33.1 g/dL (32-36); Mean Corpuscular Hgb 32.3 pg (27.0-32.0); Mean Corpuscular Volume 97.4 fL (81-99); Mean Platelet Vol. 11.3 fl (6.2-12.0); Platelet Count 103 K/mm3 (150-450); RBC Distribution Width CV 13.7 % (11.6-14.6); RBC Distribution Width SD 49.2 fl (35.1-43.9); Red Blood Count 4.65 M/mm3 (4.2-5.4); White Blood Count 2.9 K/mm3 (4.4-11.0)
[2020-01-20 07:29] LABS: International Normalized Ratio 2.1; Prothrombin Time (Protime)PT. 23.3 SECONDS (11.7-14.9)
[2020-01-20 07:57] LABS: Anion Gap 4 (5-15); BUN 24 mg/dL (7-18); BUN/Creat Ratio 23.3 RATIO (10-20); Calcium,Total 8.1 mg/dL (8.5-10.1); Chloride 105 mmol/L (98-107); Cholesterol 156 mg/dL (200); Creatinine, Serum 1.03 mg/dL (0.55-1.02); EST Glomerular Filtration Rate 54 mL/min (>60); Est Glom Filt Rate - Afr Amer 66 mL/min (>60); Glucose 81 mg/dL (74-106); High Density Lipoprotein 81 mg/dL; Potassium 3.3 mmol/L (3.5-5.1); Sodium Level 142 mmol/L (136-145); Thyroid Stim Hormone (TSH) 1.23 uIU/mL (0.358-3.74); Triglycerides 56 mg/dL; Very Low Density Lipoprotein 11 mg/dL (5-40)
[2020-01-20 10:58] LABS: Hemoglobin A1c 5.6 % (3.8-5.6)
== END ==
LOC: OLS.WHLBEN 05:00
PROVIDERS: PCP Family Medicine; Referring Provider Family Medicine; Visit Provider Family Medicine
DX: I11.0 Hypertensive heart disease with heart failure (principal); I50.21 Acute systolic (congestive) heart failure; M62.81 Muscle weakness (generalized); F03.90 Unspecified dementia, unspecified severity, without behavioral disturbance, psychotic disturbance, mood disturbance, and anxiety; I48.0 Paroxysmal atrial fibrillation; E78.5 Hyperlipidemia, unspecified; I48.91 Unspecified atrial fibrillation; Z79.899 Other long term (current) drug therapy
CPT/HCPCS: 36415; 80048; 80061; 83036; 84443; 85027; 85610

== ENCOUNTER 2020-03-11 06:33 | Inpatient (IN) | payer MEDICARE, OTHER, SELFPAY ==
[2020-03-11] VITALS (20 sets, daily range): BP systolic 56–118; BP diastolic 46–92; PULSE 63–110; RESP 12–24; TEMP 36.1–37.2; O2SAT 92–99; BMI 28.6; BMI 28.0; BMI 27.1
--- NOTE | 2020-03-11 06:48 | CT_ITS ---
STUDY: CT BRAIN WITHOUT CONTRAST REASON FOR EXAM: Female, 84 years old. Head injury, unwitnessed fall, on coumadin, large hematoma to right temporal area. Hx Parkinson''s and rheumatoid arthritis. RADIATION DOSAGE (If Supplied By Facility): CTDIvol = ( 44.99 ) mGy, DLP = ( 812.98 ) mGycm TECHNIQUE: Transaxial CT imaging of the brain was performed without administration of intravenous contrast material. Individualized dose optimization techniques were used for this CT. COMPARISON: CT head from 07/28/2017 FINDINGS: There is a right moderate size frontal lateral scalp contusion. Normal calvarium. There are 2 punctate hyperdensities along the cortical sulci of the right frontal lobe, series 2 image 34 largest measuring approximately 4 mm. Additional focal hyperdensities along the cortical sulci involving the right temporoparietal region, series 2 image 26. There is mild cerebral atrophy with widening of the extra-axial spaces and ventricular dilatation. Normal white matter tracts of the cerebral hemispheres. Normal basal ganglia and thalami. Normal brainstem. Normal cerebellum. There are no findings of an acute ischemic infarction. Normal visualized paranasal sinuses. CT/Brain/Head without Contrast IMPRESSION: Multiple tiny hyperdensities within the right frontal and temporal parietal region along the cortical sulci consistent with foci of subarachnoid hemorrhage. Moderate size right frontal scalp contusion. Recommend close follow-up head CT within 4 to 6 hours to assess stability considering history of taking coumadin. Electronically Signed: Bora Gibson MD at 7:48 EST Tel , Service support ,
--- NOTE | 2020-03-11 06:48 | CT_ITS ---
STUDY: CT CERVICAL SPINE WITHOUT CONTRAST REASON FOR EXAM: Female, 84 years old. Head injury, unwitnessed fall, on coumadin, large hematoma to right temporal area. Hx Parkinson''s and rheumatoid arthritis. RADIATION DOSAGE (If Supplied By Facility): CTDIvol = ( 12.16 ) mGy, DLP = ( 250.21 ) mGycm TECHNIQUE: High resolution transaxial imaging was performed without contrast material. Sagittal and coronal images were reconstructed. Individualized dose optimization techniques were used for this CT. COMPARISON: None FINDINGS: Normal craniovertebral junction. There are degenerative changes of the anterior atlantoaxial articulation. Normal odontoid process. Normal cervical lordosis. There is diffuse facet arthrosis and endplate changes. No acute fracture or subluxation visualized. Normal visualized soft tissue structures. CT/Spine Cervical without Contras IMPRESSION: Multilevel degenerative changes, as described above. No acute fracture or subluxation Electronically Signed: Bora Gibson MD at 7:53 EST Tel , Service support ,
--- NOTE | 2020-03-11 06:54 | RAD_ITS ---
STUDY: X-RAY - LUMBAR SPINE REASON FOR EXAM: Female, 84 years old. FALL, LOWER BACK PAIN patient from [facility] and fell this morning and hit head. patient on blood thinners and has hematoma above right eye. TECHNIQUE: 4 view(s) of the lumbar spine were obtained. COMPARISON: None FINDINGS: Normal lumbar lordosis. Mild levoscoliosis centered at L4. There is a normal alignment of the vertebrae. Severe compression fracture of L1 which may be acute, subacute, or chronic. Clinical correlation correlation MRI may be useful. There is multi-level degenerative disc disease with multi-level disc space narrowing. The soft tissue structures are unremarkable. RAD/L/S Spine Min 4 Views IMPRESSION: 1. Severe compression fracture of L1 which may be acute, subacute, or chronic. Clinical correlation and MRI may be useful. 2. Mild levoscoliosis with diffuse degenerative disc disease. Electronically Signed: Colton Lepe MD at 8:14 EST Tel , Service support ,
--- NOTE | 2020-03-11 06:55 | ED.DCSUM_ITS ---
History of Present Illness Chief Complaint: Fall Informant: Patient Narrative: Patient had a fall at the correction. She is DO NOT RESUSCITATE Comfort Care only. She is on Coumadin. She struck the right side of her head. She denies any pain other than some soreness in her back. She stated she normally walks with a walker with assistance. She states she was trying to get to the bathroom. She was found on the floor by the staff. Current severity is mild. She has a hematoma to her right forehead from when she fell. Denies any neck pain. Patient denies any headache or neck pain. She has a large bruise on her right knee and thigh which appears old. She stated that is not new. 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 (5) Non-ischemic cardiomyopathy Status: Chronic (6) Paroxysmal atrial fibrillation Status: Chronic (7) Right bundle branch block Status: Chronic (8) Non-ST elevation (NSTEMI) myocardial infarction Status: Resolved Past Medical History - Allergies and Home Meds Allergies/Adverse Reactions: Allergies erythromycin base Allergy (Verified 03/11/20 06:49) Itching mirtazapine [From Remeron] Allergy (Verified 03/11/20 06:49) Itching Opioids - Morphine Analogues Allergy (Verified 03/11/20 06:49) Itching oxycodone HCl [From OxyContin] Allergy (Verified 03/11/20 06:49) Itching sertraline HCl [From Zoloft] Adverse Reaction (Mild, Verified 03/11/20 06:49) GENERAL DISCOMFORT general discomfort acetaminophen [From Percocet] Adverse Reaction (Verified 03/11/20 06:49) Itching amoxicillin [Amoxicillin] Adverse Reaction (Verified 03/11/20 06:49) Nausea/Vom/Diarrhea codeine Adverse Reaction (Verified 03/11/20 06:49) Nausea morphine Adverse Reaction (Verified 03/11/20 06:49) Nausea/Vom/Diarrhea oxycodone [From Percocet] Adverse Reaction (Verified 03/11/20 06:49) Itching propoxyphene HCl [From Darvon] Adverse Reaction (Verified 02/25/19 11:37) Nausea/Vom/Diarrhea Sulfa (Sulfonamide Antibiotics) Adverse Reaction (Verified 02/25/19 11:37) Itching Primary Care Physician: Maurice Mcclellan MD [Primary Care Provider] - Prior records reviewed: Yes Past Medical History: - - See problem list Surgical History: cholecystectomy, hysterectomy, total knee arthroplasty, - - Reconstructive surgery of the right hand. Lives: [facility] Smoking Status: Never smoker Alcohol: None Drugs: None - Family History Maternal Family History: Family History (Last Reviewed 02/25/19 @ 11:[address] Basil Hummel MD) Father Myocardial infarction Mother CVA (cerebral vascular accident) Sister Diabetes Family History: Reports: No pertinent history Paternal Family History: Family History (Last Reviewed 02/25/19 @ 11:[address] Basil Hummel MD) Father Myocardial infarction Mother CVA (cerebral vascular accident) Sister Diabetes Family History: Reports: No pertinent history Review of Systems General: Denies: Chills, Fever, Sweats Eyes: Denies: Visual changes - bilaterally, Diplopia ENT: Denies: Rhinorrhea, Sore throat Cardiovascular: Denies: Chest pain, Palpitations Respiratory: Denies: Dyspnea, Cough, Dyspnea on exertion Gastrointestinal: Denies: Abdominal pain, Nausea, Vomiting, Diarrhea, Melena, Hematochezia Genitourinary: Denies: Dysuria, Hematuria, Frequency Musculoskeletal: Reports: Back pain. Denies: Extremity Pain Skin: Denies: Rash, Wounds Neurological: Denies: Headache, Weakness, Numbness Physical Exam Vital Signs/Narrative: Vital Signs Temp Pulse Resp BP Pulse Ox 03/11/20 06:54 118/80 03/11/20 06:34 97.6 F L 92 16 96 General: Well nourished, Well developed, No Acute Distress Head: - - Patient has a 4 x 4 centimeter hematoma to her right temporal scalp. She has a superficial 1 x 1 cm abrasion to her right faith. Eyes: Perrl, EOMI ENT: Moist mucous membranes, No rhinorrhea Neck: Supple, Nontender, - - No bony step-off or deformity. Negative for: No lymphadenopathy, No JVD Cardiovascular: Regular rate, Regular rhythm, No murmurs Respiratory: No distress, CTA bilaterally, Chest nontender Abdomen: Soft, Nontender, Nondistended, Normal bowel sounds Back: Nontender, Spinal tenderness - Diffuse lower lumbar spinal discomfort. Mild decreased range of motion secondary to pain. No bony step-off or deformity Extremities: Nontender, No edema Skin: No rash, - - Patient has a bruise on the right lateral thigh from the hip all the way down to the knee. It appears old. There is no tenderness to the knee normal range of motion Neurological: Alert, Oriented x3, Cranial nerves II-XII grossly intact, Normal Strength, Normal Sensation Psychological: Normal affect, Normal Mood Diagnostic/Tx/Re-eval - Medical Decision Making Patient is DO NOT RESUSCITATE comfort care only. CT head neck and lumbar x-ray obtained. She does not want thing for pain. CT head preliminary read by myself shows a small hemorrhagic contusion dose of IV vitamin K and fresh frozen plasma to try to decrease the size of this brain bleed she is on Coumadin. INR is just above 3. Patient has anemia at 9. History of chronic anemia in the past. Discussed the case with the daughter who stated that the patient is a DNR comfort care and would only want to be comfortable. I do not feel she needs aggressive treatment at this time. Will be discussed with the hospitalist and admitted. Imaging studies show these punctate small hemorrhages as discussed above. CT cervical negative. Lumbar x-ray was signed out to the oncoming physician and patient will be admitted. - Critical Care Time Critical care time (excluding procedures): 30-74 minutes ED Disposition - Plan for ED Patient: Disposition: Acute Care Hospital [facility] Diagnosis: Traumatic intracerebral hemorrhage, Coagulopathy, Anemia, Fall, Scalp hematoma Referrals: Maurice Mcclellan MD [Primary Care Provider] -
[2020-03-11 07:29] LABS: Absolute Lymphocyte Count 0.54 X10^3/uL (0.83-4.51); Basophil# 0.03 X10^3/uL; Basophil% 0.6 % (0-1); Eosinophil# 0.04 X10^3/uL; Eosinophils% 0.8 % (0-5); Hematocrit 28.2 % (37-47); Lymphocyte # 0.54 X10^3/ul (4.0); Lymphocyte % 10.5 % (19-41); Mean Corp Hgb Conc 31.9 g/dL (32-36); Mean Corpuscular Volume 100.4 fL (81-99); Mean Platelet Vol. 10.4 fl (6.2-12.0); Monocyte# 0.51 X10^3/uL; Monocyte% 9.9 % (0-10); NRBC Flagged by Analyzer 0 % (0-5); Neutrophil # 4.01 X10^3/uL (2.7-7.7); Neutrophil % 77.8 % (47-70); POSITIVE COUNT YES; POSITIVE DIFFERENTIAL YES; Platelet Count 132 K/mm3 (150-450); RBC Distribution Width CV 15.3 % (11.6-14.6); RBC Distribution Width SD 56.4 fl (35.1-43.9); Red Blood Count 2.81 M/mm3 (4.2-5.4); White Blood Count 5.2 K/mm3 (4.4-11.0)
[2020-03-11 07:35] LABS: International Normalized Ratio 3.2; Partial Thromboplast Time 37.8 Seconds (24.1-36.2); Prothrombin Time (Protime)PT. 32.5 SECONDS (11.7-14.9)
[2020-03-11 07:39] LABS: Anion Gap 3 (5-15); BUN 24 mg/dL (7-18); BUN/Creat Ratio 31.1 RATIO (10-20); Calcium,Total 7.9 mg/dL (8.5-10.1); Chloride 109 mmol/L (98-107); Creatinine, Serum 0.77 mg/dL (0.55-1.02); EST Glomerular Filtration Rate 76 mL/min (>60); Est Glom Filt Rate - Afr Amer 91 mL/min (>60); Estimated Creatinine Clearance 29.54 ml/min; Glucose 111 mg/dL (74-106); Potassium 3.6 mmol/L (3.5-5.1); Sodium Level 144 mmol/L (136-145)
--- NOTE | 2020-03-11 08:50 | ED.RN ---
dr wheeler spoke with daughter reguarding plan previously. call daughter a present to given number to pt unit and room number visiting hours etc and answered questions.
--- NOTE | 2020-03-11 10:09 | HP.PCM_ITS ---
Problem List (1) Extensive right thigh hematoma Status: Acute (2) Acute blood loss anemia Status: Acute (3) Subarachnoid hemorrhage Status: Acute (4) Fall Status: Acute (5) Scalp hematoma Status: Acute (6) Paroxysmal atrial fibrillation Status: Chronic (7) Non-ischemic cardiomyopathy Status: Chronic (8) Chronic systolic (congestive) heart failure Status: Chronic (9) Essential (primary) hypertension Status: Chronic (10) Hyperlipidemia Status: Chronic Qualifiers: Hyperlipidemia type: pure hypercholesterolemia Qualified Code(s): E78.00 - Pure hypercholesterolemia, unspecified; E78.0 - Pure hypercholesterolemia History of Present Illness Date of Admission: 03/11/20 Chief Complaint: Fall. The patient is a 84 year old F with past medical history as mentioned above presented to the emergency room from the group home because of fall. This incident happened yesterday when she was trying to go to the bathroom using her walker and she failed on her right side struck her head and her buttock on the floor. She was found by the nursing staff on the floor. He is not sure why she fell but denied any prodromal symptoms. Currently, she complained of mild right thigh pain as well as headache. She had a history of paroxysmal atrial fibrillation and she has been on Coumadin for anticoagulation, INR 3.2. She will history of hypertension which has been under control with Coreg and nitrates. She had a history of chronic systolic CHF and she has been on diuretics, beta-blockers and nitrates and currently, it is compensated and stable. In the emergency department, initial vital signs were stable and then blood pressure start to drop. She is afebrile, pulse ox is 96% on room air. Her routine blood work was remarkable for hemoglobin of 9 g/dL which is acute, platelet count is 132,000. BMP was unremarkable. INR was 3.2. CT scan brain showed right frontal, temporal and parietal foci of subarachnoid hemorrhage. CT scan cervical spine showed no acute fractures or dislocations. X-ray of the lumbar spine revealed severe compression fracture of L1 which could be acute or subacute. She is being admitted for acute traumatic subarachnoid hemorrhage, scalp hematoma, acute traumatic right thigh extensive hematoma, compression fracture of L1 and acute blood loss anemia. Past Medical History Past Medical History (Chronic Problems): Chronic Problems (Last Updated 03/11/20 @ 10:[address] 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 Mary Watkins MD) Paroxysmal atrial fibrillation (Chronic) I48.0 Non-ischemic cardiomyopathy (Chronic) I42.8 Chronic systolic (congestive) heart failure (Chronic) I50.22 Non-ST elevation (NSTEMI) myocardial infarction (Chronic) Onset Date: 04/2016 I21.4 Essential (primary) hypertension (Chronic) I10 Right bundle branch block (Chronic) I45.10 Hyperlipidemia (Chronic) E78.5 Anxiety F41.9 GERD (gastroesophageal reflux disease) K21.9 Hypoparathyroidism E20.9 Hypothyroidism E03.9 Osteoarthritis M19.90 Parkinson disease G20 Rheumatoid arthritis M06.9 Thyroid cancer C73 Allergies erythromycin base Allergy (Verified 03/11/20 06:49) Itching mirtazapine [From Remeron] Allergy (Verified 03/11/20 06:49) Itching Opioids - Morphine Analogues Allergy (Verified 03/11/20 06:49) Itching oxycodone HCl [From OxyContin] Allergy (Verified 03/11/20 06:49) Itching sertraline HCl [From Zoloft] Adverse Reaction (Mild, Verified 03/11/20 06:49) GENERAL DISCOMFORT general discomfort acetaminophen [From Percocet] Adverse Reaction (Verified 03/11/20 06:49) Itching amoxicillin [Amoxicillin] Adverse Reaction (Verified 03/11/20 06:49) Nausea/Vom/Diarrhea codeine Adverse Reaction (Verified 03/11/20 06:49) Nausea morphine Adverse Reaction (Verified 03/11/20 06:49) Nausea/Vom/Diarrhea oxycodone [From Percocet] Adverse Reaction (Verified 03/11/20 06:49) Itching propoxyphene HCl [From Darvon] Adverse Reaction (Verified 02/25/19 11:37) Nausea/Vom/Diarrhea Sulfa (Sulfonamide Antibiotics) Adverse Reaction (Verified 02/25/19 11:37) Itching Home Medications: Ambulatory Orders Medication Instructions Recorded Multivitamins,Therapeutic 1 tab PO DAILY 06/27/14 [Multivitamin] Memantine HCl [Namenda] 10 mg PO BID 05/03/16 atorvastatin 20 mg tablet 20 mg PO QHS tab 05/14/17 calcium carb-vit D3-minerals 600 1 tab PO DAILY 05/14/17 mg calcium-400 unit tablet cholecalciferol (vitamin D3) 10 800 unit PO QDAY cap 05/14/17 mcg (400 unit) capsule cyanocobalamin (vitamin B-12) 500 500 mcg PO .QOD tab 05/14/17 mcg tablet doxycycline hyclate 100 mg capsule 100 mg PO BID cap 05/14/17 ferrous sulfate 325 mg (65 mg 325 mg PO DAILY tab 12/18/17 iron) tablet acetaminophen 500 mg tablet 1,000 mg PO Q6H PRN PRN tab 06/18/18 albuterol sulfate 2.5 mg/0.5 mL 2.5 mg INHALATION Q4H PRN 06/18/18 solution for nebulization folic acid 1 mg tablet 1 mg PO DAILY@0800 tab 06/18/18 levothyroxine 100 mcg tablet 100 mcg PO DAILY 06/18/18 nitroglycerin 0.4 mg sublingual 0.4 mg SUBLINGUAL Q5-15M PRN 06/18/18 tablet carvedilol 3.125 mg tablet 3.125 mg PO QHS tab 02/25/19 furosemide 20 mg tablet 40 mg PO DAILY tab 02/25/19 isosorbide mononitrate 10 mg tablet 15 mg PO DAILY tab 02/25/19 potassium chloride 20 mEq oral 20 meq PO DAILY 12/04/19 packet Buspirone HCl 10 mg PO BID 03/11/20 Duloxetine HCl 30 mg PO DAILY 03/11/20 Lactobacillus Acidophilus 1 ea PO BID 03/11/20 [Acidophilus] Mineral Oil/Petrolatum,White 1 applic TOPICAL QHS 03/11/20 [Eucerin] Peg 400/Hypromellose/Glycerin 1 drp EACH EYE Q6H PRN 03/11/20 [Artificial Tears] Warfarin Sodium 4 mg PO DAILY 03/11/20 Zinc 50 mg PO DAILY 03/11/20 hydrOXYzine pamoate capsule 25 mg PO 4X/DAY PRN PRN 03/11/20 [Vistaril pamoate capsule] Surgical History: Surgical History (Last Reviewed 02/25/19 @ 11:[address] Basil Hummel MD) History of total knee arthroplasty Z96.659 Hx of cholecystectomy Z90.49 H/O hand surgery Z98.890 H/O inguinal hernia repair Z98.890, Z87.19 H/O parathyroidectomy Z98.890 H/O thyroidectomy E89.0 History of hysterectomy Z90.710 History of left heart catheterization Onset Date: 05/07/16 Z98.890 Normal Coronary arteries Surgical History: cholecystectomy, hysterectomy, total knee arthroplasty, - - Reconstructive surgery of the right hand. 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 Basil Hummel MD) Father Myocardial infarction Mother CVA (cerebral vascular accident) Sister Diabetes Paternal Family History: Family History (Last Reviewed 02/25/19 @ 11:[address] Basil Hummel MD) Father Myocardial infarction Mother CVA (cerebral vascular accident) Sister Diabetes Review of Systems Constitutional: Reports: Weakness. Denies: Anorexia, Chills, Fever Eyes: Denies: Blurred vision, Double vision, Drainage, Redness HEENT: Denies: Difficulty Hearing, Dysphasia, Ear Pain, Eye Pain, Nasal Congestion, Sore Throat Cardiovascular: Denies: Chest Pain, Chest Pressure, Chest Tightness, Palpitations, Syncope Respiratory: Denies: Cough, Pleuritic Pain, Shortness of Breath, Sputum production, Wheezing Gastrointestinal: Denies: Abdominal Pain, Constipation, Diarrhea, Nausea, Vomiting Genitourinary: Denies: Dysuria, Frequency, Hematuria Musculoskeletal: Reports: Arm Pain, Back Pain, Leg Pain, Shoulder Pain Skin: Denies: Dryness, Rash Neurological: Denies: Balance problems, Double vision, Change in Speech, Slurred speech, Confusion, Headaches, Incoordination Psychiatric: Denies: Anxiety, Depression Endocrine: Denies: Change in Body Habitus, Polydipsia, Polyuria VTE Information - Inpt Only VTE Present on Admission: No VTE Mechan Device Prophylaxis: None VTE Pharm Prophylaxis ordered?: No Patient Problems: Active and Suspected Problems (Last Updated 03/11/20 @ 10:[address] Mary Watkins MD) Extensive right thigh hematoma (Acute) Acute blood loss anemia (Acute) Subarachnoid hemorrhage (Acute) Fall (Acute) Scalp hematoma (Acute) - Physical Exam Vitals/I&O's: Vital Signs Temp Pulse Resp BP Pulse Ox 98.5 F 72 18 116/87 H 96 03/11/20 09:00 03/11/20 09:00 03/11/20 09:00 03/11/20 09:00 03/11/20 08:46 Oxygen Delivery Method Room Air Weight: 138 lb 9.6 oz Body Mass Index (BMI) 27.1 General: Alert, Cooperative, No apparent distress, Well nourished HEENT: PERRLA, EOMI, - - Traumatic, right frontal/parietal scalp hematoma. Neck: Supple, No JVD, Negative Carotid Bruits, Trachea Midline, Thyroid Normal Size and Texture Lungs: Clear to auscultation, No rhonchi, No wheeze, No rales, Diminished Cardiovascular: Regular rate, Regular Rhythm, Normal S1, Normal S2, PMI Normal Abdomen: Bowel Sounds Present, Soft, Non Tender, Non-Distended, No Hepato- splenomegaly Extremities: No clubbing, No cyanosis, Edema - +++ Edema., - - Right thigh: Extensive subcutaneous bruises involving the whole right thigh, more posteriorly. Skin: No rashes, No breakdown Lymphatic: No Cervical, Supraclavicular, or Inguinal Adenopathy Neurological: Cranial nerves II-XII grossly intact, Neuro grossly intact Psych/Mental Status: Normal Affect, Appropriate Laboratory Results 03/11/20 07:20: WBC 5.2, RBC 2.81 L, Hgb 9.0 L, Hct 28.2 L, MCV 100.4 H, MCH 32.0, MCHC 31.9 L, RDW Std Deviation 56.4 H, RDW Coeff of Dwight 15.3 H, Plt Count 132 L, MPV 10.4, Immature Gran % (Auto) 0.400, Neut % (Auto) 77.8 H, Lymph % (Auto) 10.5 L, Lane % (Auto) 9.9, Eos % (Auto) 0.8, Baso % (Auto) 0.6, Absolute Neuts (auto) 4.0, Absolute Lymphs (auto) 0.54 L, Nucleated RBC % 0 03/11/20 07:20: PT 32.5 H, INR 3.2, APTT 37.8 H 03/11/20 07:20: Sodium 144, Potassium 3.6, Chloride 109 H, Carbon Dioxide 32.0, Anion Gap 3 L, BUN 24 H, Creatinine 0.77, Estim Creat Clear Calc 29.54, Est GFR (MDRD) Af Amer 91, Est GFR (MDRD) Non-Af 76, BUN/Creatinine Ratio 31.1 H, Glucose 111 H, Calcium 7.9 L 03/11/20 08:15: Blood Type A POSITIVE Clinical Impression(s) from Imaging Studies Brain CT 03/11/20 06:48 IMPRESSION: Multiple tiny hyperdensities within the right frontal and temporal parietal region along the cortical sulci consistent with foci of subarachnoid hemorrhage. Moderate size right frontal scalp contusion. Recommend close follow-up head CT within 4 to 6 hours to assess stability considering history of taking coumadin. Electronically Signed: Bora Gibson MD at 7:48 EST Tel , Service support , Cervical Spine CT 03/11/20 06:48 IMPRESSION: Multilevel degenerative changes, as described above. No acute fracture or subluxation Electronically Signed: Bora Gibson MD at 7:53 EST Tel , Service support , Lumbar Spine X-Ray 03/11/20 06:54 IMPRESSION: 1. Severe compression fracture of L1 which may be acute, subacute, or chronic. Clinical correlation and MRI may be useful. 2. Mild levoscoliosis with diffuse degenerative disc disease. Electronically Signed: Colton Lepe MD at 8:14 EST Tel , Service support , Current Medications Sodium Chloride () 250 mls @ 15 mls/hr IV .[id number] PRN PRN Reason: Saline Flush Sodium Chloride () 250 mls @ 15 mls/hr IV .[id number] PRN PRN Reason: Additional IVPB Infusion Sodium Chloride (0.9% Saline Lock 10 Ml Syringe) 10 - 40 ml IV UD PRN PRN Reason: SALINE FLUSH Assessment/Plan All Active Problems (Last Updated 03/11/20 @ 10:[address] Mary Watkins MD) Extensive right thigh hematoma (Acute) Acute blood loss anemia (Acute) Subarachnoid hemorrhage (Acute) Fall (Acute) Scalp hematoma (Acute) This is an 84 years old female patient presented to the emergency room from [facility] because of fall, found to have subarachnoid hemorrhage, right scalp hematoma, acute blood loss anemia, extensive right thigh hematoma and L1 compression fracture, she is DNR CC and she is being admitted for stabilization. #1 acute traumatic right frontal/temporal/parietal foci of subarachnoid hemorrhage: CT scan brain reviewed. Patient is DNR CC, no plan for aggressive procedures or surgery according to the patient and her daughter. Patient has been on Coumadin, INR is 3.2. She is given vitamin K in the ED. Currently, blood pressure started to drop but improved with IV fluids. Plan: Admit to [facility] floor, complete bedrest, IV fluids as needed, fresh frozen plasma, hold Coumadin, repeat CBC, BMP and INR tomorrow morning, PT OT evaluation and treatment appropriate. #2 acute traumatic right frontal/parietal scalp hematoma: Plan for symptomatic treatment with Tylenol as needed, cold compresses if needed. #3 acute traumatic extensive right thigh hematoma: Extensive bruises on the right thigh more posteriorly. Plan for blood transfusion as needed, pain control, reverse Coumadin. #4 acute blood loss anemia: Hemoglobin was 15 g/dL on January,. Admission globin is 9, but this is a. Platelet count is 132,000. Plan: H&H every 6 hours, type and crossmatch unit of packed RBCs, transfuse if hemoglobin less than 8 g/dL, repeat CBC tomorrow morning. #5 acute versus subacute L1 compression fracture: Plan for pain control, PT OT when appropriate. #6 paroxysmal atrial fibrillation: Rate is stable, continue Coreg for rate control, hold Coumadin for now. #7 chronic systolic CHF/nonischemic cardiomyopathy: Compensated, stable, on room air. Continue Coreg, hold Lasix. #8 hypertension: Blood pressure start to drop, improved with IV fluids. Plan to monitor. #9 hyperlipidemia: Continue statins. #11 hypothyroidism: Continue thyroxine. #12 dementia: Continue Namenda. #13 CODE STATUS: DNR CC. Reviewed signed document from the group home. Spoke with the patient's daughter Krista Mccormick who is the power of tax associate attorney and she confirmed that the CODE STATUS is DNR CC. #14 DVT prophylaxis: INR is 3.2. This note was generated with [employer] dictation software. It may contain incorrect words, spelling, and punctuation that were not noted in checking the note before signing. Inpatient E&M: [id number] Init Hosp L3
[2020-03-11] MEDS: Lactated Ringers 500 ML 999 ML IV (10:31)
[2020-03-11] MEDS: Lactated Ringers 1,000 ML 75 ML IV (11:14)
[2020-03-11] MEDS: Memantine Hydrochloride 10 MG Tablet PO (11:37)
[2020-03-11] MEDS: Levothyroxine 100 MCG Tablet PO (11:37)
[2020-03-11] MEDS: Ferrous Sulfate 325 MG Tablet PO (11:37)
[2020-03-11] MEDS: Acetaminophen 325 MG Tablet 650 MG PO (11:37)
[2020-03-11] MEDS: hydrOXYzine PAM 25 MG Capsule PO (11:37)
--- NOTE | 2020-03-11 13:10 | CASEMGMT ---
Addendum entered by Davida Ortiz 03/11/20 14:35: SW spoke w/pt's daughter who is here, Rossana Artis. Support offered. SW remains available for support to family. WESLEY Bar Original Note: SW spoke w/Emmie from [facility], pt is from the assisted living, plan had already been for pt to go to the [facility] side of the facility. SW faxed referral, they will take her directly into the [facility] side from here, will bill Medicare if able. SW called pt's daughter and Krista CONTRERAS. She is in agreement w/pt returning to the snf side at discharge rather than back to assisted living. SW explained [facility] will see if they can bill Medicare. Daughter states she is also in the process of applying for Medicaid. Daughter does want pt back at [facility], in agreement w/plan. SW completed PAS/RR and placed this on chart along w/ambulance form, COVID form, and green sheet. SW put on green sheet for pt to be tested for COVID prior to discharge. PLAN: WVM to the snf side at discharge. WESLEY Bar
[2020-03-11] MEDS: oxyCODONE 5 MG Tablet PO (14:47)
[2020-03-11 19:56] LABS: Hematocrit 17.8 % (37-47); POSITIVE COUNT YES
--- NOTE | 2020-03-11 20:30 | NURSING ---
Called patient's daughter (Krista) to give update. Informed that we are going to proceed with blood transfusion after latest lab result.
[2020-03-11] MEDS: LORazepam 2 MG/ML Bottle 1 MG SL (23:29)
[2020-03-11] MEDS: oxyCODONE Soln 5 MG/0.25 ML PO.SYRINGE SL (23:29)
[2020-03-12 00:30] VITALS: BP 99/63; PULSE 89; RESP 19; TEMP 36.9; O2SAT 98
[2020-03-12] MEDS: LORazepam 2 MG/ML Bottle 1 MG SL ×2 (00:35→02:39)
--- NOTE | 2020-03-12 01:58 | PCM.DC.SUM ---
Discharge Date and Diagnosis - Problem List Patient Problems: Active and Suspected Problems (Last Updated 03/11/20 @ 10:[address] Mary Watkins MD) Extensive right thigh hematoma (Acute) Acute blood loss anemia (Acute) Subarachnoid hemorrhage (Acute) Fall (Acute) Scalp hematoma (Acute) Date of Admission: 03/11/20 Date of Discharge: 03/12/20 - Primary Discharge Diagnosis Acute Problems: Active Problems (Last Updated 03/11/20 @ 10:[address] Mary Watkins MD) Extensive right thigh hematoma (Acute) Acute blood loss anemia (Acute) Subarachnoid hemorrhage (Acute) Fall (Acute) Scalp hematoma (Acute) - Secondary Discharge Diagnosis Chronic Problems: Chronic Problems (Last Updated 03/11/20 @ 10:[address] Mary Watkins MD) Paroxysmal atrial fibrillation (Chronic) Non-ischemic cardiomyopathy (Chronic) Chronic systolic (congestive) heart failure (Chronic) Non-ST elevation (NSTEMI) myocardial infarction (Chronic 04/2016) Essential (primary) hypertension (Chronic) Right bundle branch block (Chronic) Hyperlipidemia (Chronic) group home current use of anticoagulant (Chronic) Hospital Course and Treatment Operations: None Summary of Care Provided: hpi: The patient is a 84 year old F with past medical history as mentioned above presented to the emergency room from the [place] [facility] because of fall. This incident happened yesterday when she was trying to go to the bathroom using her walker and she failed on her right side struck her head and her buttock on the floor. She was found by the nursing staff on the floor. He is not sure why she fell but denied any prodromal symptoms. Currently, she complained of mild right thigh pain as well as headache. She had a history of paroxysmal atrial fibrillation and she has been on Coumadin for anticoagulation, INR 3.2. She will history of hypertension which has been under control with Coreg and nitrates. She had a history of chronic systolic CHF and she has been on diuretics, beta-blockers and nitrates and currently, it is compensated and stable. In the emergency department, initial vital signs were stable and then blood pressure start to drop. She is afebrile, pulse ox is 96% on room air. Her routine blood work was remarkable for hemoglobin of 9 g/dL which is acute, platelet count is 132,000. BMP was unremarkable. INR was 3.2. CT scan brain showed right frontal, temporal and parietal foci of subarachnoid hemorrhage. CT scan cervical spine showed no acute fractures or dislocations. X-ray of the lumbar spine revealed severe compression fracture of L1 which could be acute or subacute. She is being admitted for acute traumatic subarachnoid hemorrhage, scalp hematoma, acute traumatic right thigh extensive hematoma, compression fracture of L1 and acute blood loss anemia. Summary of Care #1 acute traumatic right frontal/temporal/parietal foci of subarachnoid hemorrhage: CT scan brain showed subarachnoid hemorrhage. Patient is DNR CC, no plan for aggressive procedures or surgery according to the patient and her daughter. Patient has been on Coumadin, INR was 3.2. She was given vitamin K in the ED. Coumadin was held. She was given fresh frozen plasma. She was typed and screened. H&H was trended. H&H trended down and an order was given for 2 units of blood to be given. Patient was moaning in bed and trying to grab things in the bed. She became hypotensive again. Her daughter who is POA was notified. Family agreed that comfort measures alone be done and Hospice consulted. Oxyfast prn; and ativan intensol prn was ordered. Her daughter and in-law was at the bedside. After patient had received 1 more unit of blood daughter did not want any more blood given. Hospice was consulted and patient will be transferred to hospice #2 acute traumatic right frontal/parietal scalp hematoma: Plan for symptomatic treatment with Tylenol as needed, cold compresses if needed. #3 acute traumatic extensive right thigh hematoma: Extensive bruises on the right thigh more posteriorly. Blood transfusion as above; pain control; reverse Coumadin. #4 acute blood loss anemia: Hemoglobin was 15 g/dL on January,. Admission hemoglobin was 9. Her hemoglobin trended down to 5.7 and patient received transfusion as above. #5 acute versus subacute L1 compression fracture: Pain control. #6 paroxysmal atrial fibrillation: Her Coreg was held secondary to hypotension and obtundation. Coumadin was held secondary to bleeding. #7 chronic systolic CHF/nonischemic cardiomyopathy: Compensated, stable, on room air. Coreg was held secondary to obtundation. #8 hypertension: Noted to have hypotension and received IV fluid. #9 hyperlipidemia: #11 hypothyroidism: #12 dementia: #13 DVT prophylaxis: INR is 3.2. Not indicated. Patient Problems: Active and Suspected Problems (Last Updated 03/11/20 @ 10:[address] Mary Watkins MD) Extensive right thigh hematoma (Acute) Acute blood loss anemia (Acute) Subarachnoid hemorrhage (Acute) Fall (Acute) Scalp hematoma (Acute) - Physical Exam Vitals/I&O's: Vital Signs Temp Pulse Resp BP Pulse Ox 98.4 F 89 19 H 99/63 98 03/12/20 00:30 03/12/20 00:30 03/12/20 00:30 03/12/20 00:30 03/12/20 00:30 Oxygen Flow Rate (L/min) 2 Oxygen Delivery Method Nasal Cannula Weight: 62.868 kg Body Mass Index (BMI) 28.0 Intake and Output for Last 24 Hours 03/10/20 03/11/20 03/12/20 23:59 23:59 23:59 Intake Total 2033.5 / 2033.5 400 / 400 Output Total 100 / 100 Balance 1933.5 / 1933.5 400 / 400 General: - - Stuporous HEENT: Atraumatic, Normocephalic Neck: Trachea Midline Lungs: No rhonchi, No wheeze, No rales, - - Agonal respiration Cardiovascular: Regular rate, Normal S1, Normal S2 Abdomen: Bowel Sounds Present, Soft, Non Tender Extremities: No edema Skin: No rashes Musculoskeletal: No Tenderness to Palpation of Joints or Extremities Neurological: - - Obtunded; does not follow commands. Psych/Mental Status: - - Obtunded; does not follow commands. Laboratory Results 03/11/20 07:20: WBC 5.2, RBC 2.81 L, Hgb 9.0 L, Hct 28.2 L, MCV 100.4 H, MCH 32.0, MCHC 31.9 L, RDW Std Deviation 56.4 H, RDW Coeff of Dwight 15.3 H, Plt Count 132 L, MPV 10.4, Immature Gran % (Auto) 0.400, Neut % (Auto) 77.8 H, Lymph % (Auto) 10.5 L, Rains % (Auto) 9.9, Eos % (Auto) 0.8, Baso % (Auto) 0.6, Absolute Neuts (auto) 4.0, Absolute Lymphs (auto) 0.54 L, Nucleated RBC % 0 03/11/20 07:20: PT 32.5 H, INR 3.2, APTT 37.8 H 03/11/20 07:20: Sodium 144, Potassium 3.6, Chloride 109 H, Carbon Dioxide 32.0, Anion Gap 3 L, BUN 24 H, Creatinine 0.77, Estim Creat Clear Calc 29.54, Est GFR (MDRD) Af Amer 91, Est GFR (MDRD) Non-Af 76, BUN/Creatinine Ratio 31.1 H, Glucose 111 H, Calcium 7.9 L 03/11/20 08:15: Blood Type A POSITIVE 03/11/20 08:15: Blood Type Cancelled, A1 Antigen Typing Cancelled, Rho(D) Type Cancelled, Antibody Screen NEGATIVE, Crossmatch See Detail 03/11/20 17:42: Hgb 5.7 L*, Hct 17.8 L Current Medications Lorazepam (Lorazepam 2 Mg/Ml Bottle) 1 mg SL Q1H PRN PRN PRN Reason: ANXIETY Last Admin: 03/12/20 00:35 Dose: 1 mg Documented by: Ondansetron HCl (Ondansetron 4 Mg/2 Ml Vial) 4 mg IV Q8H PRN PRN PRN Reason: NAUSEA/VOMITING Oxycodone HCl (Oxycodone Soln 5 Mg/0.25 Ml Po.Syringe) 5 mg SL Q4H PRN PRN PRN Reason: Pain Score 6-10 Last Admin: 03/11/20 23:29 Dose: 5 mg Documented by: Oxycodone HCl (Oxycodone Soln 5 Mg/0.25 Ml Po.Syringe) 5 mg SL X1 ONE Stop: 03/12/20 02:01 Home Medications: Medications to take at Discharge Multivitamins,Therapeutic [Multivitamin] 1 tab PO DAILY 06/27/14 Memantine HCl [Namenda] 10 mg PO BID 05/03/16 atorvastatin 20 mg tablet 20 mg PO QHS tab 05/14/17 calcium carb-vit D3-minerals 600 mg calcium-400 unit tablet 1 tab PO DAILY 05/14/17 cholecalciferol (vitamin D3) 10 mcg (400 unit) capsule 800 unit PO QDAY cap 05/14/17 cyanocobalamin (vitamin B-12) 500 mcg tablet 500 mcg PO .QOD tab 05/14/17 doxycycline hyclate 100 mg capsule 100 mg PO BID cap 05/14/17 ferrous sulfate 325 mg (65 mg iron) tablet 325 mg PO DAILY tab 12/18/17 acetaminophen 500 mg tablet 1,000 mg PO Q6H PRN PRN tab 06/18/18 albuterol sulfate 2.5 mg/0.5 mL solution for nebulization 2.5 mg INHALATION Q4H PRN 06/18/18 folic acid 1 mg tablet 1 mg PO DAILY@0800 tab 06/18/18 levothyroxine 100 mcg tablet 100 mcg PO DAILY 06/18/18 nitroglycerin 0.4 mg sublingual tablet 0.4 mg SUBLINGUAL Q5-15M PRN 06/18/18 carvedilol 3.125 mg tablet 3.125 mg PO QHS tab 02/25/19 furosemide 20 mg tablet 40 mg PO DAILY tab 02/25/19 isosorbide mononitrate 10 mg tablet 15 mg PO DAILY tab 02/25/19 potassium chloride 20 mEq oral packet 20 meq PO DAILY 12/04/19 Buspirone HCl 10 mg PO BID 03/11/20 Duloxetine HCl 30 mg PO DAILY 03/11/20 Lactobacillus Acidophilus [Acidophilus] 1 ea PO BID 03/11/20 Mineral Oil/Petrolatum,White [Eucerin] 1 applic TOPICAL QHS 03/11/20 Peg 400/Hypromellose/Glycerin [Artificial Tears] 1 drp EACH EYE Q6H PRN 03/11/20 Warfarin Sodium 4 mg PO DAILY 03/11/20 Zinc 50 mg PO DAILY 03/11/20 hydrOXYzine pamoate capsule [Vistaril pamoate capsule] 25 mg PO 4X/DAY PRN PRN 03/11/20 Primary Care Physician: Maurice Mcclellan MD [Primary Care Provider] - Disposition: Hospice Medical Facility Minutes spent on discharge:: 35 Medical Necessity - Tobacco Use Smoking Status: Never smoker Tobacco Use: - Meaningful Use Info Meaningful Use Diagnoses (Choose all that apply): None applicable Inpatient E&M: 37722 [facility]
[2020-03-12] MEDS: oxyCODONE Soln 5 MG/0.25 ML PO.SYRINGE SL (02:38)
--- NOTE | 2020-03-12 03:08 | NURSING ---
Patient transferred to [facility] inpatient hospice at this time. Daughter, BEN Velasco and her , were at bedside on transfer. Decision was made by family to consult Hospice earlier this shift due to blood loss anemia, hypotension and unresponsiveness. Dr. Chavez aware and ordered consult. An ROVING WINDER from Hospice arrived and made arrangements for transfer to [facility]. This RN premedicated patient prior to discharge.
--- NOTE | 2020-03-12 07:14 | CASEMGMT ---
ABDIRAHMAN left a message for [facility] that pt was transferred to the in hospice unit on 03/11/20. WESLEY Bar
[2020-03-14 13:18] LABS: Hemoglobin 5.7 g/dL (12.0-15.0)
== END 2020-03-12 03:00 | disposition hospice, inpatient (51) | DRG 86 ==
LOC: ED 07:46 → MS3 10:34
PROVIDERS: Admitting Provider Hospitalist; Emergency Provider Emergency Medicine; PCP Family Medicine; Visit Provider Hospitalist
DX: S06.6X0A Traumatic subarachnoid hemorrhage without loss of consciousness, initial encounter (principal); I50.22 Chronic systolic (congestive) heart failure; I42.8 Other cardiomyopathies; D62 Acute posthemorrhagic anemia; D68.9 Coagulation defect, unspecified; M48.56XA Collapsed vertebra, not elsewhere classified, lumbar region, initial encounter for fracture; S70.11XA Contusion of right thigh, initial encounter; E78.5 Hyperlipidemia, unspecified; I11.0 Hypertensive heart disease with heart failure; S80.01XA Contusion of right knee, initial encounter; I48.0 Paroxysmal atrial fibrillation; I25.2 Old myocardial infarction; Z66 Do not resuscitate; F41.9 Anxiety disorder, unspecified; K21.9 Gastro-esophageal reflux disease without esophagitis; E20.9 Hypoparathyroidism, unspecified; M19.90 Unspecified osteoarthritis, unspecified site; M06.9 Rheumatoid arthritis, unspecified; G20 Parkinson's disease; F02.80 Dementia in other diseases classified elsewhere, unspecified severity, without behavioral disturbance, psychotic disturbance, mood disturbance, and anxiety; W19.XXXA Unspecified fall, initial encounter; Y92.129 Unspecified place in nursing home as the place of occurrence of the external cause
CPT/HCPCS: 70450; 72110; 72125; 80048; 85014; 85018; 85025; 85610; 85730; 86850; 86900; 86901; 86920; 86922; 99285; J7030; J7120; P9016; P9017; A4216; J3490